=== PATIENT | male | born 1935 | race Caucasian/White ===

== ENCOUNTER → 2020-11-11 12:57 | Outpatient (CLI) | payer MEDICARE, SELFPAY ==
[2020-11-11 13:28] LABS: Basophils % 0.4 % (0.1-2.0); Eosinophils # 0.2 K/mm3 (0.0-0.4); Eosinophils % 2.7 % (0.1-12.0); Hematocrit 41.4 % (42.0-52.0); Hemoglobin 14.2 g/dL (14.1-18.0); Lymphocytes # 1.8 K/mm3 (0.7-4.5); Lymphocytes % 27.6 % (10-50); Mean Corpuscular HGB Conc 34.2 g/dL (31.8-35.4); Mean Corpuscular Hemoglobin 33.3 pg (27.0-31.2); Mean Corpuscular Volume 97.3 fl (80-94); Mean Platelet Volume 8.9 fl (7.4-10.4); Monocytes # 0.3 K/mm3 (0.1-1.0); Monocytes % 4.8 % (1.7-9.3); Neutrophils # 4.2 K/mm3 (1.8-7.8); Neutrophils % 64.5 % (37.0-80.0); Platelet Count 224 K/mm3 (142-424); Red Blood Count 4.26 M/mm3 (4.60-6.20); Red Cell Distribution Width 13.1 % (11.5-17.5); White Blood Count 6.6 K/mm3 (4.8-10.8)
[2020-11-11 14:11] LABS: Chloride 103 mmol/L (98-107)
[2020-11-11 14:12] LABS: Potassium 4.9 mmoL/L (3.5-5.1); Sodium 140 mmol/L (136-145)
[2020-11-11 14:14] LABS: Alanine Aminotransferase 21 U/L (12-78); Anion Gap 14.9 mEq/L (5-15); Aspartate Amino Transferase 22 U/L (17-59); Blood Urea Nitrogen 28 mg/dl (9-20); Carbon Dioxide 27 mmol/L (22.0-30.0); Estimated Glomerular Filt Rate 39 ml/min (>60); GFR (African American) 47 ML/MIN (>60)
[2020-11-11 14:15] LABS: Albumin/Globulin Ratio 1.6 (1.1-1.8); Alkaline Phosphatase 83 U/L (38-126); Bilirubin,Total 0.4 mg/dl (0.2-1.3); Calcium 9.4 mg/dl (8.4-10.2); Chol/HDL Ratio 5.9 (1-3.5); Cholesterol 196 mg/dl (140-200); Globulin 2.5 g/dL (1.3-3.2); Glucose 108 mg/dl (74-100); HDL Cholesterol 33 mg/dl (40-60); Total Protein,Serum 6.5 g/dl (6.3-8.2); Triglycerides 209 mg/dl (30-150); VLDL Cholesterol 42 mg/dL (0-40)
[2020-11-11 14:27] LABS: Direct LDL Cholesterol 128.63 mg/dL (100-129)
[2020-11-11 14:30] LABS: Free T4 (Free Thyroxine) 1.12 ng/dl (0.78-2.19)
[2020-11-11 14:44] LABS: Thyroid Stimulating Hormone 0.61 uIU/mL (0.465-4.68)
== END ==
PROVIDERS: Visit Provider Emergency Medicine
DX: R53.83 Other fatigue (principal); K59.00 Constipation, unspecified; E03.9 Hypothyroidism, unspecified
CPT/HCPCS: 36415; 80053; 80061; 84439; 84443; 85025

== ENCOUNTER → 2021-01-27 15:35 | Outpatient (CLI) | payer MEDICARE, SELFPAY ==
[2021-01-27 17:07] LABS: Chloride 101 mmol/L (98-107); Sodium 139 mmol/L (136-145)
[2021-01-27 17:08] LABS: Potassium 4.6 mmoL/L (3.5-5.1)
[2021-01-27 17:10] LABS: Blood Urea Nitrogen 30 mg/dl (9-20); Estimated Glomerular Filt Rate 41 ml/min (>60); GFR (African American) 50 ML/MIN (>60)
[2021-01-27 17:11] LABS: Anion Gap 15.6 mEq/L (5-15); Calcium 9.6 mg/dl (8.4-10.2); Carbon Dioxide 27 mmol/L (22.0-30.0); Glucose 90 mg/dl (74-100)
== END ==
PROVIDERS: Visit Provider Emergency Medicine
DX: R53.83 Other fatigue (principal); I10 Essential (primary) hypertension
CPT/HCPCS: 36415; 80048

== ENCOUNTER → 2021-12-28 09:41 | Outpatient (CLI) | payer MEDICARE, SELFPAY ==
--- NOTE | 2021-12-28 09:47 | XR_ITS ---
FINAL REPORT CLINICAL HISTORY: shoulder pain FINDINGS: LEFT SHOULDER 3 views of the left shoulder were obtained. There is no acute fracture or dislocation. There are minimal hypertrophic changes in the acromioclavicular joint. There is no soft tissue abnormality. IMPRESSION: Minimal hypertrophic changes in the acromioclavicular joint. Reviewed, Interpreted and Dictated by Tobin Borges MD Transcribed by Liz Banegas Authenticated and [facility]
--- NOTE | 2021-12-28 09:47 | XR_ITS ---
FINAL REPORT CLINICAL HISTORY: shoulder pain FINDINGS: RIGHT SHOULDER 3 views of the right shoulder were obtained. There is no acute fracture or dislocation. There are moderate degenerative changes of the acromioclavicular and glenohumeral joints. There is no soft tissue abnormality. There are mild chronic changes in the periphery of both lungs. IMPRESSION: Moderate degenerative changes of the acromioclavicular and glenohumeral joints consistent with osteoarthritis. Reviewed, Interpreted and Dictated by Tobin Borges MD Transcribed by Liz Banegas Authenticated and [facility]
== END ==
PROVIDERS: PCP Emergency Medicine; Visit Provider Orthopaedic Surgery
DX: M25.512 Pain in left shoulder (principal); M25.511 Pain in right shoulder
CPT/HCPCS: 73030

== ENCOUNTER → 2022-06-13 11:40 | Outpatient (CLI) | payer MEDICARE, SELFPAY ==
--- NOTE | 2022-06-13 11:49 | XR_ITS ---
FINAL REPORT CLINICAL HISTORY: right shoulder pain COMPARISON: 12/28/2021 FINDINGS: Right shoulder Three views were obtained. There is no acute fracture or dislocation. There are mild hypertrophic changes of the AC and glenohumeral joints. No soft tissue abnormality is identified. IMPRESSION: Mild degenerative changes. Reviewed, Interpreted and Dictated by Tobin Borges MD Transcribed by Elisha Dominguez Authenticated and [facility]
== END ==
PROVIDERS: Visit Provider Orthopaedic Surgery
DX: M19.211 Secondary osteoarthritis, right shoulder (principal); M25.511 Pain in right shoulder
CPT/HCPCS: 73030

== ENCOUNTER → 2022-11-06 23:22 | Outpatient (CLI) | payer MEDICARE, SELFPAY | PROVIDERS: PCP Emergency Medicine; Visit Provider Internal Medicine | DX: R06.02 Shortness of breath (principal) | CPT/HCPCS: 87635 ==

== ENCOUNTER → 2022-11-07 11:19 | Outpatient (CLI) | payer MEDICARE, SELFPAY ==
--- NOTE | 2022-11-07 11:25 | CA_ITS ---
APPROVED REPORT EXAM: Comprehensive 2D, Doppler, and color-flow Echocardiogram Adjunct Teacher: Linda Ellis RT(R) Ht: 6 ft 0 in Wt: 218lbs BSA: 2.21 BP: 140/82 mmHg Indications: A-FIB,SOA,ABN EKG,CP,EX SMOKER,OBESITY,PALPS Echo Enhancing Agent Indication: Endocardial border delineation Agent(s) / Amount(s) Used: Definity 2 cc 2D Dimensions IVSd 1.28 cm M: 0.6-1.2 LA Volume 66.20 mL PWd 0.79 cm M: 0.6 - 1.2 LA Volume Index 29.95 mL/m2 (M/F) 16-34 LVDd 5.54 cm M: 4.2 - 5.9 LVOT 2.20 cm (M/F) 1.5-2.5 M-Mode Dimensions RVDd 2.54 cm (0.9-2.6) LA Diam 4.35 cm (1.9-4.0) LVDd 6.02 cm (3.5-5.7) Ao Diam 2.73 cm (2.0-3.7) LVDs 5.21 cm (3.5-5.7) IVSd 1.06 cm (0.6-1.1) PWd 0.81 cm (0.6-1.1) EF (Teich) 28.30% FS 13.50% EDV (Teich) 181.40 mL ESV (Teich) 130.10 mL LV Diastology E Decel Time 150.00 (160-240 msec) E/A Ratio 1.7 MED E' 3.80 (< 7 cm/sec) E'/MED E' Ratio 27.13 (>14) LAT E' 4.50 (<10 cm/sec) E/LAT E' Ratio 22.91 (>14) Mitral Valve MV E Max Aiden. 103.00 (40-130 cm/s) MV A Velocity 60.00 (40-130 cm/s) E/A Ratio 1.72 MV Decel. Time 150.00 (160-240 ms) MV PHT 44.00 ms Tricuspid Valve TR P. Velocity 314.00 cm/s RAP Estimate 10.00 mmHg RVSP 49.30 mmHg Left Ventricle Left ventricle is mildly dilated (LVEDVi=77 ml/m2). There is severe reduction in global and LV systolic function. There is normal left ventricular wall thickness. Severe global hypokinesis is present. There is near akinesis of the lateral, anterior, anterolateral, and inferolateral LV barkley. There is grade 2 diastolic dysfunction present. No left ventricle thrombus noted on this study. LVEF is 25-30%. Right Ventricle Right ventricle is mild to moderately dilated. The right ventricular systolic function is mildly reduced. Atria The left atrium size is normal. Aortic Valve The aortic valve is mildly thickened. There is no aortic valvular stenosis. Trace aortic regurgitation. Mitral Valve The mitral valve is mildly thickened. No evidence of mitral valve stenosis. Mild mitral regurgitation. Tricuspid Valve The tricuspid valve leaflets are thin and pliable. Mild tricuspid regurgitation. RVSP is 30 mmHg + RA pressure. Pulmonic Valve The pulmonary valve is normal in structure. Mild pulmonic regurgitation. Great Vessels The aortic root is normal in size. The ascending aorta is normal in size. The IVC is not well visualized. Pericardium There is no pericardial effusion. Other Information Study Quality: Fair Conclusion Mildly dilated LV with severe reduction in global LV systolic function (LVEF 25-30%) Anterior, lateral, anterolateral, and inferior lateral LV wall akinesis is present. Grade 2 diastolic dysfunction. Mild to moderate RV dilatation with mild reduction in RV systolic function. No significant valvular stenosis or regurgitation. Electronically signed by : Marina Cid MD 11/07/2022 18:24:11
[2022-11-07 12:40] LABS: Basophils % 0.2 % (0.1-2.0); Eosinophils # 0.2 K/mm3 (0.0-0.4); Eosinophils % 3.8 % (0.1-12.0); Hematocrit 39.5 % (42.0-52.0); Hemoglobin 12.7 g/dL (14.1-18.0); Lymphocytes # 1.1 K/mm3 (0.7-4.5); Lymphocytes % 21.5 % (10-50); Mean Corpuscular HGB Conc 32.3 g/dL (31.8-35.4); Mean Corpuscular Hemoglobin 31.7 pg (27.0-31.2); Mean Corpuscular Volume 98.4 fl (80-94); Mean Platelet Volume 7.9 fl (7.4-10.4); Monocytes # 0.2 K/mm3 (0.1-1.0); Monocytes % 4.1 % (1.7-9.3); Neutrophils # 3.7 K/mm3 (1.8-7.8); Neutrophils % 70.4 % (37.0-80.0); Platelet Count 179 K/mm3 (142-424); Red Blood Count 4.02 M/mm3 (4.60-6.20); Red Cell Distribution Width 13.7 % (11.5-17.5); White Blood Count 5.3 K/mm3 (4.8-10.8)
[2022-11-07 13:20] LABS: Alanine Aminotransferase 22 U/L (12-78); Albumin Level 3.9 g/dl (3.5-5.0); Alkaline Phosphatase 57 U/L (38-126); Anion Gap 14.2 mEq/L (5-15); Aspartate Amino Transferase 26 U/L (17-59); Bilirubin,Direct 0.3 mg/dl (0.0-0.4); Bilirubin,Indirect 0.7 mg/dL (0.0-0.9); Bilirubin,Unconjugated 0.8 mg/dL (0.0-1.1); Blood Urea Nitrogen 17 mg/dl (9-20); Carbon Dioxide 22 mmol/L (22.0-30.0); Chloride 108 mmol/L (98-107); Chol/HDL Ratio 5.1 (1-3.5); Cholesterol 163 mg/dl (140-200); Estimated Glomerular Filt Rate 48 ml/min (>60); GFR (African American) 58 ML/MIN (>60); Glucose 110 mg/dl (74-100); HDL Cholesterol 32 mg/dl (40-60); Magnesium 1.2 mg/dl (1.6-2.3); Potassium 4.2 mmoL/L (3.5-5.1); Sodium 140 mmol/L (136-145); Total Protein,Serum 6.3 g/dl (6.3-8.2); Triglycerides 93 mg/dl (30-150); VLDL Cholesterol 19 mg/dL (0-40)
[2022-11-07 13:32] LABS: Troponin I 0.06 ng/ml (0.00-0.034)
[2022-11-07 13:36] LABS: Free T4 (Free Thyroxine) 1.43 ng/dl (0.78-2.19)
[2022-11-07 13:50] LABS: Thyroid Stimulating Hormone 0.76 uIU/mL (0.465-4.68)
== END ==
PROVIDERS: PCP Emergency Medicine; Visit Provider Physician Assistant
DX: R07.9 Chest pain, unspecified (principal); E66.9 Obesity, unspecified; I73.9 Peripheral vascular disease, unspecified; R00.2 Palpitations; R06.00 Dyspnea, unspecified; R94.31 Abnormal electrocardiogram [ECG] [EKG]
CPT/HCPCS: 36415; 80048; 80061; 80076; 83735; 84439; 84443; 84484; 85025; 93306; Q9957

== ENCOUNTER 2022-11-07 13:31 | Inpatient (IN) | payer MEDICARE, SELFPAY ==
[2022-11-07 13:39] VITALS: BP 134/92; PULSE 78; RESP 16; TEMP 36.9; O2SAT 95; BMI 29.3
--- NOTE | 2022-11-07 13:51 | XR_ITS ---
FINAL REPORT CLINICAL HISTORY: Dyspnea COMPARISON: None FINDINGS: PA and lateral views of the chest are obtained. There is no prior exam for comparison. The cardiac and mediastinal silhouettes are within normal limits. There are increased interstitial markings with bilateral lower lobe atelectasis, and small bilateral pleural effusions. There is no pneumothorax or acute osseous abnormality. IMPRESSION: Increased interstitial markings with bilateral lower lobe atelectasis and small pleural effusions, favor mild pulmonary edema. Reviewed, Interpreted and Dictated by Bianca Sumner MD Transcribed by Joycelyn Spear Authenticated and [facility]
--- NOTE | 2022-11-07 14:02 | HMH.PHAINT1 ---
Pharmacy Intervention Comments: MEDICATION RECONCILIATION COMPLETED ON PATIENT USING EXTERNAL FILL HISTORY FROM PHARMACY. -RAMONITA STERLING, ELOYD
--- NOTE | 2022-11-07 14:02 | EXP.HP ---
History of Present Illness *Admission Date: 11/07/22 *Reason for visit:: Chief complaint: Dyspnea *History of present illness: This is an 87-year-old male who presented to his cardiology office this morning for evaluation of dyspnea that began on Saturday. His past medical history is significant for Hypertension, B12 deficiency and obstructive sleep apnea noncompliant with CPAP therapy. He reports on Saturday afternoon experiencing a sudden episode of dyspnea that resolved with rest and no associated retrosternal chest pain, palpitations, confusion, diaphoresis or nausea and vomiting. He attempted to go to sleep and identified orthopnea and tried to change positions to breathe better. His symptomatology eased up over a couple days and then returned prompting a call for a cardiology evaluation. 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 The patient was amendable. He is accompanied by his of 40 years that assists with the history. He denies a past history of coronary artery disease, previous left heart cath or hospital admissions. [facility] Medical History (Updated 11/07/22 @ 16:45 by Fuad Jean-Baptiste MD) BPH (benign prostatic hyperplasia) Heart failure with reduced ejection fraction Hypertension PRISCILA (obstructive sleep apnea) Osteoarthritis Vitamin B12 deficiency Surgical History (Updated 11/07/22 @ 16:45 by Fuad Jean-Baptiste MD) Normal colonoscopy Social History Smoking Status: Former smoker alcohol intake: never substance use type: denies use current occupational status: employed Travel in the last 8 weeks: None Review of Systems Review of Systems Review of systems:: pertinent systems reviewed and negative unless documented below Constitutional Constitutional: Denies fever(s), Denies frequent falls and Denies headache(s) ENT Ears, Nose, Mouth, and Throat: Denies headache(s) *Cardiovascular Cardiovascular: Denies chest pain, Denies chest pain at rest, Reports dyspnea, Reports dyspnea on exertion and Denies edema *Respiratory Respiratory: Denies cough, Reports dyspnea and Reports dyspnea on exertion *Gastrointestinal Gastrointestinal: Denies loose stools, Denies nausea and Denies vomiting *Neurologic Neurologic: Denies frequent falls and Denies headache(s) Meds Home Medications and Allergies Home Medications Medication Instructions Recorded Confirmed Type cyanocobalamin (vitamin B-12) 1,000 mcg IM WEEKLY Supplement 11/07/22 11/07/22 History 1,000 mcg/mL injection solution lisinopril 5 mg tablet 5 mg PO DAILY High Blood Pressure 11/07/22 11/07/22 History loratadine 10 mg tablet (Allergy 10 mg PO DAILY Allergy Symptoms 11/07/22 11/07/22 History Relief (loratadine)) metoprolol succinate 25 mg 12.5 mg PO DAILY High Blood 11/07/22 11/07/22 History tablet,extended release 24 hr Pressure omeprazole 20 mg capsule,delayed 20 mg PO DAILY Acid Reflux 11/07/22 11/07/22 History release tamsulosin 0.4 mg capsule 0.4 mg PO HS Prostate 11/07/22 11/07/22 History New Prescriptions to Start Prescriptions: Allergies Allergy/AdvReac Type Severity Reaction Status Date / Time Penicillins Allergy Severe stops Verified 11/07/22 10:45 breathing statins AdvReac Mild Nausea Uncoded 11/07/22 10:45 Exam Data for Last 24 hours Vital signs and Labs for Last 24 Hours: Temp Pulse Resp BP Pulse Ox O2 Del Method 98.5 F 78 16 134/92 H 95 Room Air 11/07/22 13:39 11/07/22 13:39 11/07/22 13:39 11/07/22 13:39 11/07/22 13:39 11/07/22 13:39 I & O for Last 24 hours: Intake & Output 11/04/22 11/05/22 11/06/22 11/07/22 23:59 23:59 23:59 23:59 Weight 98.174 kg Constitutional Constitutional: no acute distress, obese and cooperative *Routine HEENT Exam Head: Present normocephalic Eye: Present EOMI and PERRL ENT: Present mucous membranes moist *Ro
[2022-11-07 15:05] LABS: Basophils % 0.1 % (0.1-2.0); Eosinophils # 0.1 K/mm3 (0.0-0.4); Eosinophils % 2.3 % (0.1-12.0); Hematocrit 40.5 % (42.0-52.0); Hemoglobin 12.9 g/dL (14.1-18.0); Lymphocytes # 1.3 K/mm3 (0.7-4.5); Lymphocytes % 21.8 % (10-50); Mean Corpuscular HGB Conc 31.9 g/dL (31.8-35.4); Mean Corpuscular Hemoglobin 31.4 pg (27.0-31.2); Mean Corpuscular Volume 98.3 fl (80-94); Mean Platelet Volume 9.5 fl (7.4-10.4); Monocytes # 0.3 K/mm3 (0.1-1.0); Monocytes % 4.5 % (1.7-9.3); Neutrophils # 4.3 K/mm3 (1.8-7.8); Neutrophils % 71.3 % (37.0-80.0); Platelet Count 198 K/mm3 (142-424); Red Blood Count 4.11 M/mm3 (4.60-6.20); Red Cell Distribution Width 13.8 % (11.5-17.5)
--- NOTE | 2022-11-07 15:07 | ECG_ITS ---
APPROVED REPORT Exam: Resting ECG HR:78 bpm ECG Measurements Heart Rate 78 AXES OK 200 P 55 QRSd 146 QRS -49 QT 459 T -1 QTc 492 Conclusion SINUS RHYTHM WITH FREQUENT VENTRICULAR PREMATURE COMPLEXES RIGHT BUNDLE BRANCH BLOCK [120+ ms QRS DURATION, UPRIGHT V1, 40+ ms S IN I/aVL/V4/V5/V6] LEFT ANTERIOR FASCICULAR BLOCK [QRS AXIS <= -45, QR IN I, RS IN II] ABNORMAL ECG UNCONFIRMED REPORT Electronically signed by : Rudy Sanchez MD 11/08/2022 17:19:28
[2022-11-07 15:08] VITALS: BP 125/84; PULSE 82; RESP 16; TEMP 36.5; O2SAT 97
[2022-11-07 15:10] LABS: Chloride 107 mmol/L (98-107); Potassium 4.3 mmoL/L (3.5-5.1); Sodium 142 mmol/L (136-145)
[2022-11-07 15:13] LABS: Alanine Aminotransferase 27 U/L (12-78); Albumin Level 3.9 g/dl (3.5-5.0); Albumin/Globulin Ratio 1.4 (1.1-1.8); Alkaline Phosphatase 53 U/L (38-126); Anion Gap 14.3 mEq/L (5-15); Aspartate Amino Transferase 35 U/L (17-59); Bilirubin,Total 1.3 mg/dl (0.2-1.3); Blood Urea Nitrogen 17 mg/dl (9-20); Calcium 8.9 mg/dl (8.4-10.2); Carbon Dioxide 25 mmol/L (22.0-30.0); Creatinine Clearance Estimated 54 mL/min (50-200); Estimated Glomerular Filt Rate 48 ml/min (>60); GFR (African American) 58 ML/MIN (>60); Globulin 2.8 g/dL (1.3-3.2); Glucose 106 mg/dl (74-100); Total Protein,Serum 6.7 g/dl (6.3-8.2)
[2022-11-07 15:22] LABS: NT Pro Brain Natriuretic Pep. 5950 pg/mL (0-450)
[2022-11-07 15:44] LABS: INR 1.08 (0.9-1.1); Prothrombin Time 11.6 seconds (10.1-12.5)
[2022-11-07 16:00] VITALS: PULSE 80
[2022-11-07 16:17] LABS: POC Glucose,Bedside 100 (70-110)
--- NOTE | 2022-11-07 17:29 | PC.NURSE ---
Pt A/O x4, On RA. Pt denies chest pain and has no complaints thus far. Pt FSBS remains within normal and range. Pt denies needs at this time.
--- NOTE | 2022-11-07 19:30 | PC.NURSE ---
Visit made to room to introduce self. While in room patient complained of slight shortness of air. Applied 2LNC. Patient aware that if symptoms worsen to use call light for assistance. Call light within reach.
[2022-11-07 20:00] VITALS: BP 124/70; PULSE 77; PULSE 80; RESP 18; RESP 20; TEMP 36.6; O2SAT 96
[2022-11-07 21:40] LABS: POC Glucose,Bedside 116 (70-110)
[2022-11-08] VITALS (24 sets, daily range): BP systolic 75–146; BP diastolic 44–92; PULSE 67–92; RESP 15–22; TEMP 36.4–36.7; O2SAT 91–99; BMI 28.8
--- NOTE | 2022-11-08 00:46 | ECG_ITS ---
APPROVED REPORT Exam: Resting ECG HR:82 bpm ECG Measurements Heart Rate 82 AXES FL 194 P 75 QRSd 139 QRS 100 QT 411 T 29 QTc 450 Conclusion SINUS RHYTHM INDETERMINATE AXIS RIGHT BUNDLE BRANCH BLOCK [120+ ms QRS DURATION, UPRIGHT V1, 40+ ms S IN I/aVL/V4/V5/V6] ABNORMAL ECG UNCONFIRMED REPORT Electronically signed by : Rudy Sanchez MD 11/08/2022 17:18:14
--- NOTE | 2022-11-08 00:58 | XR_ITS ---
PROCEDURE INFORMATION: Exam: XR Chest Exam date and time: 11/08/2022 12:54 AM Age: 87 years old Clinical indication: Shortness of breath; Additional info: SOB TECHNIQUE: Imaging protocol: Radiologic exam of the chest. Views: 1 view. COMPARISON: CR XR CHEST 2V 11/07/2022 2:20 PM FINDINGS: Lungs: Bibasilar consolidative opacities reflecting either edema or infection. Pleural spaces: Trace to small right pleural effusion suspected . Heart/Mediastinum: Stable cardiac and mediastinal contours. Vasculature: There are calcifications of the aortic arch. Bones/joints: Unremarkable for patient age. IMPRESSION: 1. Bibasilar consolidative opacities reflecting either edema or infection. 2. Trace to small right pleural effusion suspected .
--- NOTE | 2022-11-08 01:00 | PC.NURSE ---
Patient called out stating that he was having trouble breathing. Upon assessment patient is tachypenic RR >30, using accessory muscles, and requesting to sit on side of the bed. Patient SOA complaining of not being able to catch his breath. Patient is diaphoretic, and complaining of back pain between his shoulder blades. Patient VS obtained. O2 83%, heart rate 95, BP 165/112. Patient placed on NRB. [place], HEALTHCARE EDUCATOR notified along with CN. EKG obtained. No significant change from prior EKG. Patient with audible expiratory wheeze, along with wheeze noted when lungs auscultated. HEALTHCARE EDUCATOR at bedside, and chest xray obtained. New orders placed for Lasix, and nitro. Patient given dose of IV lasix, see MAR, along with 2 doses of nitro. Pain still present after Nitro administration. Respiratory notified for administration of breathing treatment per HEALTHCARE EDUCATOR. Approx 0130 patient work of breathing evens out. No accessory use noted. VS. 142/80, RR 20, O2 97% 2LNC, HR 84. Patient states that medial back pain between shoulder blades has dissipated, and that its not as hard to breathe anymore. Patient requests urinal, and produces 600ml. Provided patient comfort in bed, call light within reach, and informed to use call light immediately if having trouble breathing. RASTA.
--- NOTE | 2022-11-08 06:00 | PC.NURSE ---
Patient with complaints of worsening SOA. He states it feels like what happened a couple of hours ago is going to happen again. Patient repositioned into high fowlers, with complaints of back pain and sudden SOA. Phone call made to hospitalist with new orders. This RN administered 40mg Lasix IV so dyspnea. Patient urine output >1500ml with 0ml intake due to NPO pre procedure. Patient resting comfortably at present, slight dyspnea present but work of breathing not as prevalent. Patient remains in high folwers position, with call light within reach.
[2022-11-08 06:32] LABS: POC Glucose,Bedside 110 (70-110)
[2022-11-08 07:01] LABS: Basophils % 0.2 % (0.1-2.0); Eosinophils # 0.3 K/mm3 (0.0-0.4); Eosinophils % 3.1 % (0.1-12.0); Hematocrit 42.4 % (42.0-52.0); Lymphocytes # 1.5 K/mm3 (0.7-4.5); Lymphocytes % 18.2 % (10-50); Mean Corpuscular HGB Conc 32.9 g/dL (31.8-35.4); Mean Corpuscular Hemoglobin 31.5 pg (27.0-31.2); Mean Corpuscular Volume 95.7 fl (80-94); Mean Platelet Volume 8.8 fl (7.4-10.4); Monocytes # 0.3 K/mm3 (0.1-1.0); Monocytes % 3.5 % (1.7-9.3); Neutrophils # 6.2 K/mm3 (1.8-7.8); Platelet Count 209 K/mm3 (142-424); Red Blood Count 4.43 M/mm3 (4.60-6.20); Red Cell Distribution Width 13.6 % (11.5-17.5); White Blood Count 8.2 K/mm3 (4.8-10.8)
[2022-11-08 07:13] LABS: INR 1.06 (0.9-1.1); Prothrombin Time 11.4 seconds (10.1-12.5)
[2022-11-08 07:14] LABS: Alanine Aminotransferase 28 U/L (12-78); Albumin Level 4.4 g/dl (3.5-5.0); Albumin/Globulin Ratio 1.5 (1.1-1.8); Alkaline Phosphatase 69 U/L (38-126); Anion Gap 15.7 mEq/L (5-15); Aspartate Amino Transferase 37 U/L (17-59); Bilirubin,Total 1.5 mg/dl (0.2-1.3); Blood Urea Nitrogen 20 mg/dl (9-20); Calcium 9.5 mg/dl (8.4-10.2); Carbon Dioxide 24 mmol/L (22.0-30.0); Chloride 106 mmol/L (98-107); Chol/HDL Ratio 4.9 (1-3.5); Cholesterol 181 mg/dl (140-200); Creatinine Clearance Estimated 43 mL/min (50-200); Estimated Glomerular Filt Rate 38 ml/min (>60); GFR (African American) 47 ML/MIN (>60); Globulin 2.9 g/dL (1.3-3.2); Glucose 119 mg/dl (74-100); HDL Cholesterol 37 mg/dl (40-60); Magnesium 1.3 mg/dl (1.6-2.3); Potassium 3.7 mmoL/L (3.5-5.1); Sodium 142 mmol/L (136-145); Total Protein,Serum 7.3 g/dl (6.3-8.2); Triglycerides 120 mg/dl (30-150); VLDL Cholesterol 24 mg/dL (0-40)
[2022-11-08 07:22] LABS: NT Pro Brain Natriuretic Pep. 8000 pg/mL (0-450)
[2022-11-08 07:24] LABS: Direct LDL Cholesterol 114.44 mg/dL (100-129)
[2022-11-08 08:18] LABS: Hemoglobin A1C 5.3 % (4.0-6.0)
--- NOTE | 2022-11-08 10:41 | IR_ITS ---
APPROVED REPORT Patient Location: Inpatient PROCEDURES Right heart catheterization Left heart catheterization Left ventriculogram Selective coronary angiogram INDICATION New onset cardiomyopathy ejection fraction 25%, Pulmonary hypertension Informed consent was obtained prior to the procedure. COMPLICATIONS None Estimated Blood Loss: Less than 10 ml TECHNIQUE One percent lidocaine used to anesthetize the right anterior aspect of the wrist. The right radial artery was accessed via the Seldinger technique. A 6 Mexican sheath was placed in the right radial artery. 2.5 mg of Verapamil, 800 mcg of nitroglycerin, 1mg Lidocaine and 5000 U Heparin were given through the arterial sheath. The papa catheter was also used to perform left heart catheterization, left ventriculogram and selective coronary angiogram. Immediately following angiography patient became profoundly hypotensive and bradycardic with heart rates in the 20s and significant pauses longest 8 seconds. 1 mg of epinephrine was administered into the right internal jugular venous sheath which resolved the bradycardia and hypotension. At the end of the procedure the sheath was removed good hemostasis was achieved using Traclet band, patient was transferred to the postop holding area in stable condition. One percent lidocaine was used to anesthetize the right anterior aspect of the neck. A rn mds coordinator needle was used to identify the right internal jugular vein. Following this a larger cannulation needle was used to cannulate the right internal jugular vein and a wire was passed into the vein. Prior to the 7 Mexican sheath being inserted the wire was confirmed under fluoroscopic guidance to be in the inferior vena cava. A 7 Mexican sheath was introduced and a [place]-Kush catheter was floated using hemodynamic waveforms in the pulmonary artery, right ventricle , and right atrium. Saturations were obtained in the pulmonary artery and the right atrium. At the end of the procedure the patient was transferred to the postop holding area in stable condition for sheath removal. ANGIOGRAPHIC RESULTS The left main artery Normal The left anterior descending artery Proximally normal with mid vessel 10% luminal irregularities The circumflex artery Large dominant normal The right coronary artery Vestigial normal The ZIMMER ventriculogram reveals Severely dilated ejection fraction 20 to 25% The left ventricular end-diastolic pressure 35 mmHg Right atrial pressure 12 mmHg Pulmonary pressure 70/35 mmHg Pulmonary occlusion pressure 30 mmHg Right atrial saturation 68% Pulmonary saturation 67% Aortic saturation 91% Hemoglobin 14 Cardiac output 6.2 via Evens Cardiac index 2.8 IMPRESSION Widely patent coronary arteries with mild nonflow limiting coronary artery disease Dilated ventricle with severely reduced ejection fraction Severe pulmonary hypertension Elevated left-sided filling pressures PLAN 1. Diuresis 2. Treatment of nonischemic cardiomyopathy 3. LifeVest prior to discharge home Electronically signed by : Zana Raya MD 11/08/2022 16:04:54
--- NOTE | 2022-11-08 11:27 | EXP.CARD.CON ---
History of Present Illness History of Present Illness Consult date: 11/08/22 Requesting physician: Fuad Jean-Baptiste Consult reason: shortness of breath Chief complaint: SOA, fatigue History of present illness: This is an 87-year-old gentleman who was admitted to the hospital with shortness of breath that began on Saturday. The patient was evaluated yesterday in the cardiology clinic and due to his significant shortness of breath and new onset cardiomyopathy it was recommended the patient be admitted to the hospital. He does have known hypertension and obstructive sleep apnea. The patient states that he felt fine on Saturday afternoon and then had sudden onset of shortness of breath while he was asleep Saturday night into Saturday morning that woke him from his sleep. He states that this happened again the next night. The following morning he felt okay and then that afternoon he began to get profoundly more short of breath. He went to see his primary care provider and he was referred to cardiology clinic. Echocardiogram showed new onset cardiomyopathy with an ejection fraction of 25 to 30%. There is also anterior, lateral, anterior lateral and inferior wall akinesis. He denies any chest pain or pressure. He just states that he has been feeling extremely fatigued and having no energy. He states that this is very unlike him. He still works every day so having this lack of energy and shortness of breath this is very unusual for him. He denies a history of coronary disease or VT. He denies any lower extremity edema. He denies any fever, chills, nausea, vomiting, diarrhea. He does have some orthopnea and awaking suddenly in the middle the night with his shortness of breath. [facility] Disclaimer: The information contained in this section may have been updated after the patient was seen, as this information can be updated by other users. Medical History (Updated 11/08/22 @ 11:34 by Sarah Gibson APRN) Acute HFrEF (heart failure with reduced ejection fraction) BPH (benign prostatic hyperplasia) Cardiomyopathy Heart failure with reduced ejection fraction Hyperlipidemia Hypertension PRISCILA (obstructive sleep apnea) Osteoarthritis Regional wall motion abnormality of heart Shortness of Breath Vitamin B12 deficiency Surgical History (Updated 11/07/22 @ 16:45 by Fuad Jean-Baptiste MD) Normal colonoscopy Social History Smoking Status: Former smoker alcohol intake: never substance use type: denies use current occupational status: employed Travel in the last 8 weeks: None Review of Systems Review of Systems Review of systems:: pertinent systems reviewed and negative unless documented below Constitutional Constitutional: Reports system reviewed and no additional complaints, except as documented, Reports fatigue, Denies frequent falls, Denies headache(s), Reports lethargy and Reports weakness Eyes Eyes: Reports system reviewed and no additional complaints, except as documented ENT Ears, Nose, Mouth, and Throat: Reports system reviewed and no additional complaints, except as documented and Denies headache(s) *Cardiovascular Cardiovascular: Reports system reviewed and no additional complaints, except as documented, Denies chest pain, Reports dyspnea, Reports dyspnea on exertion, Reports orthopnea and Reports paroxysmal nocturnal dyspnea *Respiratory Respiratory: Reports system reviewed and no additional complaints, except as documented, Reports dyspnea and Reports dyspnea on exertion *Gastrointestinal Gastrointestinal: Reports system reviewed and no additional complaints, except as documented *Genitourinary Genitourinary: Reports system reviewed and no additional complaints, except as documented *Musculoskeletal Musculoskeletal: Reports system reviewed and no additional complaints, except as documented Integumentary/Breasts Skin/Breast: Reports system reviewed and no additional complaints, except as document
[2022-11-08 11:29] LABS: POC Glucose,Bedside 108 (70-110)
--- NOTE | 2022-11-08 13:32 | EXP.PN ---
Subjective *Date: 11/08/22 *Time: 13:32 Interval history: Patient is seen and examined at bedside. I am accompanied by nursing staff. The patient reports a rough night. He describes ongoing dyspnea through the night. He declined NIPPV therapy. Nursing staff report that he remains afebrile with stable vital signs and saturating appropriately on 2 L. His morning labs identify stable CBC with normal electrolytes and a creatinine 1.7. His chest x-ray is consistent with edema. His BNP is 8000 and his magnesium is 1.3. Cardiology is due to see the patient. Exam Data for Last 24 hours Vital signs and Labs for Last 24 Hours: Temp Pulse Resp BP Pulse Ox O2 Del Method O2 Flow Rate 97.6 F 67 19 134/92 H 96 Nasal Cannula 2 11/08/22 12:00 11/08/22 12:00 11/08/22 12:00 11/08/22 12:00 11/08/22 12:00 11/08/22 12:57 11/08/22 12:57 Laboratory Results - last 24 hr 11/07/22 14:20: WBC 6.0, RBC 4.11 L, Hgb 12.9 L, Hct 40.5 L, MCV 98.3 H, MCH 31.4 H, MCHC 31.9, RDW 13.8, Plt Count 198, MPV 9.5, Neut % (Auto) 71.3, Lymph % (Auto) 21.8, [place] % (Auto) 4.5, Eos % (Auto) 2.3, Baso % (Auto) 0.1, Neut # (Auto) 4.3, Lymph # (Auto) 1.3, [place] # (Auto) 0.3, Eos # (Auto) 0.1, Baso # (Auto) 0.0, Sodium 142, Potassium 4.3, Chloride 107, Carbon Dioxide 25, Anion Gap 14.3, BUN 17, Creatinine 1.40 H, Estimated Creat Clear 54, Estimated GFR 48 L, Est GFR ( Amer) 58 L, Glucose 106 H, Calcium 8.9, Total Bilirubin 1.3, AST 35 D, ALT 27, Alkaline Phosphatase 53, NT-Pro-B Natriuret Pep 5950 H, Total Protein 6.7, Albumin 3.9, Globulin 2.8, Albumin/Globulin Ratio 1.4 11/07/22 15:27: PT 11.6, INR 1.08 11/07/22 16:00: POC Glucose 100 11/07/22 20:18: POC Glucose 116 H 11/08/22 06:04: POC Glucose 110 11/08/22 06:34: WBC 8.2 D, RBC 4.43 L, Hgb 14.0 L, Hct 42.4, MCV 95.7 H, MCH 31.5 H, MCHC 32.9, RDW 13.6, Plt Count 209, MPV 8.8, Neut % (Auto) 75.0, Lymph % (Auto) 18.2, [place] % (Auto) 3.5, Eos % (Auto) 3.1, Baso % (Auto) 0.2, Neut # (Auto) 6.2, Lymph # (Auto) 1.5, [place] # (Auto) 0.3, Eos # (Auto) 0.3, Baso # (Auto) 0.0, PT 11.4, INR 1.06, Sodium 142, Potassium 3.7, Chloride 106, Carbon Dioxide 24, Anion Gap 15.7 H, BUN 20, Creatinine 1.70 H D, Estimated Creat Clear 43, Estimated GFR 38 L, Est GFR ( Amer) 47 L, Glucose 119 H, Hemoglobin A1c 5.3, Calcium 9.5, Magnesium 1.3 L, Total Bilirubin 1.5 H, AST 37, ALT 28, Alkaline Phosphatase 69, NT-Pro-B Natriuret Pep 8000 H, Total Protein 7.3, Albumin 4.4 D, Globulin 2.9, Albumin/Globulin Ratio 1.5, Triglycerides 120, Cholesterol 181, LDL Cholesterol Direct 114.44, VLDL Cholesterol 24, HDL Cholesterol 37 L, Cholesterol/HDL Ratio 4.9 H 11/08/22 10:56: POC Glucose 108 I & O for Last 24 hours: Intake & Output 11/05/22 11/06/22 11/07/22 11/08/22 23:59 23:59 23:59 23:59 Intake Total 390 / 390 0 / 0 Output Total 0 / 0 2700 / 2700 Balance 390 / 390 -2700 / -2700 Weight 98.174 kg 96.524 kg Constitutional Constitutional: no acute distress, obese and cooperative *Routine HEENT Exam Head: Present normocephalic Eye: Present EOMI and PERRL *Routine Neck Exam Neck: Present full ROM and trachea midline; Absent JVD or lymphadenopathy *Routine Respiratory Exam Respiratory: Present rhonchi, normal respiratory effort and symmetric chest movement *Routine Cardiovascular Exam Cardiovascular: Present RRR, Normal S1 and Normal S2 *Routine Extremities Exam Extremities: Present full ROM, pulses intact and normal capillary refill; Absent edema *Routine Skin Exam Skin: Present warm; Absent rash *Routine Neurological Exam Neurological: Present alert, oriented X3, moving all extremities, vision grossly intact, hearing grossly intact and normal speech; Absent sensory deficit or motor deficit Routine Psychiatric Exam Psychiatric: Present normal affect, normal thought process, cooperative, good insight and good judgment Assessment and Plan *Assessment and plan (1) Acute HFrEF (heart failure with reduced ejection fractio
--- NOTE | 2022-11-08 15:08 | PC.NURSE ---
Pt to laborer tanbark at this time
[2022-11-08 16:19] LABS: CATHL Arterial O2 SAT 67.8 % (90-100); CATHL Venous O2 SAT 68.6 % (75-80)
[2022-11-08 17:24] LABS: POC Glucose,Bedside 99 (70-110)
--- NOTE | 2022-11-08 18:39 | PC.NURSE ---
Pt alert and oriented x4, Pt went for heart cath this shift, Pt seemed to tolerate well, Pt is now resting comfortable. Pt denies pain, and V/S remain stable.Pt O2 requirements began the shift with 2L and is now currently sating at 92 on 3L following heart cath. Pt radial cath site is clean dry and intact at this time. IJ cath site is also clean dry and intact. Pt advanced from NPO to a cardiac diet pt ate 100% at dinner and is tolerating it well thus far. Pt denies all other needs at this time.
--- NOTE | 2022-11-08 20:56 | PC.NURSE ---
notified primer inserting machine adjuster of bp 89/56. stated to hold the carvedilol and entresto. no other orders given
--- NOTE | 2022-11-08 21:30 | PC.NURSE ---
Spoke with Dorota regarding patients medications. Stated to give the entresto and hold the carvedilol. D/c brlilinta. Made aware of bp 89/56.
[2022-11-08 22:04] LABS: POC Glucose,Bedside 110 (70-110)
--- NOTE | 2022-11-08 23:30 | PC.NURSE ---
notified reji of blood pressure 80/51. no new orders were given. pt is asymptomatic and has no complaints at this time
[2022-11-09] VITALS (9 sets, daily range): BP systolic 101–126; BP diastolic 50–76; PULSE 68–100; RESP 16–19; TEMP 36.4–36.8; O2SAT 91–100; BMI 28.0
[2022-11-09 06:32] LABS: POC Glucose,Bedside 123 (70-110)
[2022-11-09 06:43] LABS: Basophils % 0.2 % (0.1-2.0); Eosinophils # 0.2 K/mm3 (0.0-0.4); Eosinophils % 2.2 % (0.1-12.0); Hematocrit 42.4 % (42.0-52.0); Hemoglobin 13.7 g/dL (14.1-18.0); Lymphocytes # 1.4 K/mm3 (0.7-4.5); Lymphocytes % 16.9 % (10-50); Mean Corpuscular HGB Conc 32.3 g/dL (31.8-35.4); Mean Corpuscular Hemoglobin 31.5 pg (27.0-31.2); Mean Corpuscular Volume 97.3 fl (80-94); Mean Platelet Volume 8.6 fl (7.4-10.4); Monocytes # 0.5 K/mm3 (0.1-1.0); Monocytes % 5.8 % (1.7-9.3); Neutrophils % 74.9 % (37.0-80.0); Platelet Count 209 K/mm3 (142-424); Red Blood Count 4.36 M/mm3 (4.60-6.20); Red Cell Distribution Width 13.6 % (11.5-17.5)
[2022-11-09 06:53] LABS: Anion Gap 15.6 mEq/L (5-15); Blood Urea Nitrogen 26 mg/dl (9-20); Carbon Dioxide 29 mmol/L (22.0-30.0); Chloride 100 mmol/L (98-107); Creatinine Clearance Estimated 34 mL/min (50-200); Estimated Glomerular Filt Rate 30 ml/min (>60); GFR (African American) 37 ML/MIN (>60); Glucose 112 mg/dl (74-100); Magnesium 1.6 mg/dl (1.6-2.3); Potassium 3.6 mmoL/L (3.5-5.1); Sodium 141 mmol/L (136-145)
[2022-11-09 07:03] LABS: NT Pro Brain Natriuretic Pep. 7610 pg/mL (0-450)
--- NOTE | 2022-11-09 10:39 | EXP.CARD.PN ---
Subjective Subjective Date: 11/09/22 Time: 09:00 Principal diagnosis: Acute HFrEF, pulmonary hypertension Interval history: The patient was admitted to the hospital with shortness of breath and new onset cardiomyopathy. The patient was found to have an acute exacerbation of HFrEF. He underwent left cardiac catheterization yesterday which showed mild nonocclusive coronary artery disease with severe pulmonary hypertension and a dilated ventricle with severely reduced ejection fraction and elevated left-sided filling pressures. The patient was treated with IV Lasix. He states he has had significant improvement in his shortness of breath since yesterday. He states it is like a light switch was flipped and his shortness of breath and fatigue has significantly improved. He is feeling much better. He denies any chest pain or pressure this morning. He states his shortness of breath is significantly improved. He denies any lower extremity edema. He denies any fever, chills, nausea, vomiting, diarrhea, PND or orthopnea. Exam Data for Last 24 hours Vital signs and Labs for Last 24 Hours: Temp Pulse Resp BP Pulse Ox O2 Del Method O2 Flow Rate 97.9 F 84 18 101/50 L 91 L Room Air 2 11/09/22 08:00 11/09/22 08:00 11/09/22 08:00 11/09/22 08:00 11/09/22 08:00 11/09/22 09:00 11/09/22 06:38 Laboratory Results - last 24 hr 11/08/22 10:56: POC Glucose 108 11/08/22 16:00: ABG O2 Sat (Measured) 67.8 L, POC VBG O2 Sat (Yissel) 68.6 L 11/08/22 17:12: POC Glucose 99 11/08/22 21:42: POC Glucose 110 11/09/22 05:49: WBC 8.0, RBC 4.36 L, Hgb 13.7 L, Hct 42.4, MCV 97.3 H, MCH 31.5 H, MCHC 32.3, RDW 13.6, Plt Count 209, MPV 8.6, Neut % (Auto) 74.9, Lymph % (Auto) 16.9, [place] % (Auto) 5.8, Eos % (Auto) 2.2, Baso % (Auto) 0.2, Neut # (Auto) 6.0, Lymph # (Auto) 1.4, [place] # (Auto) 0.5, Eos # (Auto) 0.2, Baso # (Auto) 0.0, Sodium 141, Potassium 3.6, Chloride 100, Carbon Dioxide 29, Anion Gap 15.6 H, BUN 26 H D, Creatinine 2.10 H D, Estimated Creat Clear 34, Estimated GFR 30 L, Est GFR ( Amer) 37 L D, Glucose 112 H, Calcium 9.0, Magnesium 1.6 D, NT-Pro-B Natriuret Pep 7610 H 11/09/22 06:26: POC Glucose 123 H I & O for Last 24 hours: Intake & Output 11/06/22 11/07/22 11/08/22 11/09/22 23:59 23:59 23:59 23:59 Intake Total 390 / 390 240 / 840 1680 / 1680 Output Total 0 / 0 3250 / 3850 800 / 800 Balance 390 / 390 -3010 / -3010 880 / 880 Weight 216 lb 7 oz 212 lb 12.8 oz 207 lb 5 oz Narrative: Left heart cath shows: Widely patent coronary arteries with mild nonflow limiting coronary artery disease Dilated ventricle with severely reduced ejection fraction Severe pulmonary hypertension Elevated left-sided filling pressures PLAN 1. Diuresis 2. Treatment of nonischemic cardiomyopathy 3. LifeVest prior to discharge home Constitutional Constitutional: no acute distress and average body habitus *Routine HEENT Exam Head: Present normocephalic and atraumatic ENT: Present mucous membranes moist *Routine Neck Exam Neck: Present supple, full ROM and normal carotid upstroke; Absent JVD, carotid bruit or lymphadenopathy *Routine Respiratory Exam Respiratory: Present wheezes, normal respiratory effort, able to speak in complete sentences and symmetric chest movement *Routine Cardiovascular Exam Cardiovascular: Present RRR, Normal S1, Normal S2 and murmur; Absent gallop *Routine Abdominal Exam Abdominal: Present soft and normoactive bowel sounds; Absent tenderness, distended or organomegaly *Routine Extremities Exam Extremities: Present full ROM, pulses intact and normal capillary refill; Absent cyanosis, clubbing or edema *Routine Skin Exam Skin: Present intact and warm; Absent erythema *Routine Neurological Exam Neurological: Present alert, oriented X3 and CN II-XII intact; Absent sensory deficit or motor deficit Routine Psychiatric Exam Psychiatric: Present normal affect Progress Note: A&P Assessment and plan (1) Shortness of Breath: Sta
--- NOTE | 2022-11-09 10:59 | HMH.PTEV ---
Physical Therapy Evaluation Rehab PT IP Evaluation Start: 11/09/22 07:04 Freq: ONCE Status: Active Protocol: Document 11/09/22 10:49 NELIDA (Rec: 11/09/22 10:59 NELIDA [id number]) Subjective/History History History 87 yowm adm to [facility] with dyspnea, found to have cardiomyopathy wit reduced EF. Hx of HTN, PRISCILA, HF. He reports he lives with his spoise and he is independent with all mobility without AD at [facility]. 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 Subjective Subjective Pt with no c/o at this time. New diagnosis of cancer in past 12 No months? Rehab PT IP Eval Objective Appearance Patient Behavior Appropriate Patient Orientation Person,Place,Time Difficulty following instructions none Speech Pattern Clear Ambulation Patient Able to Ambulate No Balance Ability to Arise Able, uses arms to help Sitting Balance Steady, safe Standing Balance Steady, wide stance Dynamic Sitting Balance Ability Good Dynamic Standing Balance Ability Good Transfers Bed Transfer Ability Independent Chair Transfer Ability Independent Sit to Stand Bed Transfer Ability Independent Sit to Stand Chair Transfer Ability Independent Rehab PT IP prob,goals,plan Problems Date of Evaluation: 11/09/22 Discharge Plan PT Discharge Plan Pt appears to be at baseline for all mobility at this time and is appropriate to return home once medically stable for d/c. Eval Complexity Eval Charge Codes 31811 - High Complexity PHYSICIAN CERTIFICATION: I certify the specified therapy services for Chase Carpenter are required, authorized, and reviewed every 30 days.
[2022-11-09 12:17] LABS: POC Glucose,Bedside 130 (70-110)
--- NOTE | 2022-11-09 12:55 | EXP.PN ---
Subjective *Date: 11/09/22 *Time: 12:55 Interval history: Patient is seen and examined at bedside. I am accompanied by nursing staff. The patient reports no acute events overnight. He reports his dyspnea has improved. He continues to decline NIPPV therapy. Nursing staff report that he remains afebrile with stable vital signs and saturating appropriately on 2 L of oxygen via nasal cannula. He underwent right and left cardiac catheterizations. His left heart cath identified no obstructive disease in his right heart cath identified pulmonary hypertension. Cardiology continues to follow and is recommending LifeVest on discharge. We are trending his electrolytes and creatinine and providing magnesium supplementation. Exam Data for Last 24 hours Vital signs and Labs for Last 24 Hours: Temp Pulse Resp BP Pulse Ox O2 Del Method O2 Flow Rate 97.5 F L 78 19 106/64 L 93 L Room Air 2 11/09/22 11:50 11/09/22 11:50 11/09/22 11:50 11/09/22 11:50 11/09/22 11:50 11/09/22 12:31 11/09/22 06:38 Laboratory Results - last 24 hr 11/08/22 16:00: ABG O2 Sat (Measured) 67.8 L, POC VBG O2 Sat (Yissel) 68.6 L 11/08/22 17:12: POC Glucose 99 11/08/22 21:42: POC Glucose 110 11/09/22 05:49: WBC 8.0, RBC 4.36 L, Hgb 13.7 L, Hct 42.4, MCV 97.3 H, MCH 31.5 H, MCHC 32.3, RDW 13.6, Plt Count 209, MPV 8.6, Neut % (Auto) 74.9, Lymph % (Auto) 16.9, [place] % (Auto) 5.8, Eos % (Auto) 2.2, Baso % (Auto) 0.2, Neut # (Auto) 6.0, Lymph # (Auto) 1.4, [place] # (Auto) 0.5, Eos # (Auto) 0.2, Baso # (Auto) 0.0, Sodium 141, Potassium 3.6, Chloride 100, Carbon Dioxide 29, Anion Gap 15.6 H, BUN 26 H D, Creatinine 2.10 H D, Estimated Creat Clear 34, Estimated GFR 30 L, Est GFR ( Amer) 37 L D, Glucose 112 H, Calcium 9.0, Magnesium 1.6 D, NT-Pro-B Natriuret Pep 7610 H 11/09/22 06:26: POC Glucose 123 H 11/09/22 12:10: POC Glucose 130 H I & O for Last 24 hours: Intake & Output 11/06/22 11/07/22 11/08/22 11/09/22 23:59 23:59 23:59 23:59 Intake Total 390 / 390 240 / 840 1680 / 1680 Output Total 0 / 0 3250 / 3850 800 / 800 Balance 390 / 390 -3010 / -3010 880 / 880 Weight 98.174 kg 96.524 kg 94.035 kg Constitutional Constitutional: no acute distress, obese and cooperative *Routine HEENT Exam Head: Present normocephalic Eye: Present EOMI and PERRL *Routine Neck Exam Neck: Present full ROM and trachea midline; Absent JVD or lymphadenopathy *Routine Respiratory Exam Respiratory: Present rhonchi, normal respiratory effort and symmetric chest movement *Routine Cardiovascular Exam Cardiovascular: Present RRR, Normal S1 and Normal S2 *Routine Extremities Exam Extremities: Present full ROM, pulses intact and normal capillary refill; Absent edema *Routine Skin Exam Skin: Present warm; Absent rash *Routine Neurological Exam Neurological: Present alert, oriented X3, moving all extremities, vision grossly intact, hearing grossly intact and normal speech; Absent sensory deficit or motor deficit Routine Psychiatric Exam Psychiatric: Present normal affect, normal thought process, cooperative, good insight and good judgment Assessment and Plan *Assessment and plan (1) Acute HFrEF (heart failure with reduced ejection fraction): Status: Acute Category: Medical Code(s): I50.21 - Acute systolic (congestive) heart failure (2) Hypertension: Status: Acute Qualifiers: Hypertension type: primary hypertension Qualified Code(s): I10 - Essential (primary) hypertension Category: Medical Code(s): I10 - Essential (primary) hypertension (3) Abnormal ECG: Status: Acute Category: Medical Code(s): R94.31 - Abnormal electrocardiogram [ECG] [EKG] (4) Obesity (BMI 30-39.9): Status: Acute Category: Medical Code(s): E66.9 - Obesity, unspecified (5) BPH (benign prostatic hyperplasia): Status: Acute Category: Medical Code(s): N40.0 - Benign prostatic hyperplasia without lower
--- NOTE | 2022-11-09 15:40 | PC.NURSE ---
NO ACUTE CHANGES SINCE PREVIOUS ASSESSMENT. TOLERATING ROOM AIR WELL AND AMBULATING IN ROOM WITHOUT DIFFICULTY. FITTED FOR LIFE VEST THIS SHIFT.
[2022-11-10] VITALS (8 sets, daily range): BP systolic 87–108; BP diastolic 48–63; PULSE 70–88; RESP 16–20; TEMP 36.4–37.1; O2SAT 90–96; BMI 28.0
--- NOTE | 2022-11-10 04:40 | PC.NURSE ---
HAS RESTED WELL THIS SHIFT. NO C/O PAIN OR DISCOMFORT. BPs RUN LOW. ASYMPTOMATIC. 02 SATS ON RM AIR 94-99% ON ROOM AIR. CATH SITES TO R RADIAL AND R JUGGULAR MIGUEL ÁNGEL, NO S/S OF INFECTION OR COMPLICATION. SINUS RHYTHM/BBB AND OCCASSIOAL PVCs NOTED ON TELE.
[2022-11-10 06:57] LABS: Magnesium 1.8 mg/dl (1.6-2.3)
[2022-11-10 07:49] LABS: Anion Gap 13.8 mEq/L (5-15); Blood Urea Nitrogen 34 mg/dl (9-20); Calcium 8.7 mg/dl (8.4-10.2); Carbon Dioxide 29 mmol/L (22.0-30.0); Chloride 98 mmol/L (98-107); Creatinine Clearance Estimated 31 mL/min (50-200); Estimated Glomerular Filt Rate 27 ml/min (>60); GFR (African American) 33 ML/MIN (>60); Glucose 123 mg/dl (74-100); Potassium 3.8 mmoL/L (3.5-5.1); Sodium 137 mmol/L (136-145)
--- NOTE | 2022-11-10 09:01 | EXP.PN ---
Subjective *Date: 11/10/22 *Time: 09:01 Interval history: The patient is seen and examined at bedside today. I am accompanied by his nurse (Kylie). Nursing staff report that he remains afebrile with stable heart rates and downward trending blood pressures. He is saturating appropriately on room air. He interacted well with PT yesterday. His morning labs identify a creatinine 2.3 (baseline 1.4). He continues with diuretic therapy and ACC guided therapy for his heart failure with reduced ejection fraction. LifeVest district representative reports that he declined LifeVest. Exam Data for Last 24 hours Vital signs and Labs for Last 24 Hours: Temp Pulse Resp BP Pulse Ox O2 Del Method O2 Flow Rate 98.7 F 88 20 91/60 L 95 Room Air 2 11/10/22 07:25 11/10/22 07:25 11/10/22 07:25 11/10/22 07:25 11/10/22 07:25 11/10/22 07:25 11/09/22 06:38 Laboratory Results - last 24 hr 11/09/22 12:10: POC Glucose 130 H 11/10/22 06:25: Sodium 137, Potassium 3.8, Chloride 98, Carbon Dioxide 29, Anion Gap 13.8, BUN 34 H D, Creatinine 2.30 H, Estimated Creat Clear 31, Estimated GFR 27 L, Est GFR ( Amer) 33 L, Glucose 123 H, Calcium 8.7, Magnesium 1.8 D I & O for Last 24 hours: Intake & Output 11/07/22 11/08/22 11/09/22 11/10/22 23:59 23:59 23:59 23:59 Intake Total 390 / 390 240 / 840 2460 / 2920 820 / 820 Output Total 0 / 0 3250 / 3850 3100 / 3100 1025 / 1025 Balance 390 / 390 -3010 / -3010 -640 / -180 -205 / -205 Weight 98.174 kg 96.524 kg 94 kg 94 kg Constitutional Constitutional: no acute distress, obese and cooperative *Routine HEENT Exam Head: Present normocephalic Eye: Present EOMI and PERRL *Routine Neck Exam Neck: Present full ROM and trachea midline; Absent JVD or lymphadenopathy *Routine Respiratory Exam Respiratory: Present rhonchi, normal respiratory effort and symmetric chest movement *Routine Cardiovascular Exam Cardiovascular: Present RRR, Normal S1 and Normal S2 *Routine Extremities Exam Extremities: Present full ROM, pulses intact and normal capillary refill; Absent edema *Routine Skin Exam Skin: Present warm; Absent rash *Routine Neurological Exam Neurological: Present alert, oriented X3, moving all extremities, vision grossly intact, hearing grossly intact and normal speech; Absent sensory deficit or motor deficit Routine Psychiatric Exam Psychiatric: Present normal affect, normal thought process, cooperative, good insight and good judgment Assessment and Plan *Assessment and plan (1) Acute HFrEF (heart failure with reduced ejection fraction): Status: Acute Category: Medical Code(s): I50.21 - Acute systolic (congestive) heart failure (2) ALVARO (acute kidney injury): Status: Acute Category: Medical Code(s): N17.9 - Acute kidney failure, unspecified (3) Hypertension: Status: Acute Qualifiers: Hypertension type: primary hypertension Qualified Code(s): I10 - Essential (primary) hypertension Category: Medical Code(s): I10 - Essential (primary) hypertension (4) Abnormal ECG: Status: Acute Category: Medical Code(s): R94.31 - Abnormal electrocardiogram [ECG] [EKG] (5) Obesity (BMI 30-39.9): Status: Acute Category: Medical Code(s): E66.9 - Obesity, unspecified (6) BPH (benign prostatic hyperplasia): Status: Acute Category: Medical Code(s): N40.0 - Benign prostatic hyperplasia without lower urinary tract symptoms Plan 87-year-old with past medical history for hypertension, BPH, PRISCILA and noncompliant with CPAP and B12 deficiency that started experiencing shortness of air over the past week not improving with home care. He was evaluated by his watchstander on 11/07/2022 and an echocardiogram identified an EF of 30%. Problems addressed as follows: Acute kidney injury Chronic kidney disease stage IIIb Baseline creatinine 1.4 Recent contrast exposure with right and left heart c
--- NOTE | 2022-11-10 16:40 | PC.NURSE ---
notified about 0800 and 1600 hypotension, maps have been above 65. per yunier, hold 1600 lasix. pt states he feels more sluggish today. at bs
[2022-11-11] VITALS (10 sets, daily range): BP systolic 80–122; BP diastolic 43–63; PULSE 66–80; RESP 16–20; TEMP 36.5–36.9; O2SAT 92–99; BMI 28.3
--- NOTE | 2022-11-11 00:53 | PC.NURSE ---
BP 80/50, HR 68. DENIES SOA/CP/DISCOMFORT. ASYMPTOMATIC AT THIS TIME. MALCOLM N.P. NOTIFIED. WILL CONTINUE TO MONITOR FOR SYMPTOMS.
--- NOTE | 2022-11-11 04:34 | PC.NURSE ---
BPs CONTINUE TO RUN LOW, 87/43 AT THIS TIME. ASYMPTOMATIC. DENIES PAIN/SOA/DISCOMFORT. NAD. HAS RESTED WELL. TELE READING SINUS ARRHYTHMIA/BBB/PVCs.
[2022-11-11 07:58] LABS: Chloride 100 mmol/L (98-107); Potassium 4.3 mmoL/L (3.5-5.1); Sodium 136 mmol/L (136-145)
[2022-11-11 08:01] LABS: Anion Gap 13.3 mEq/L (5-15); Blood Urea Nitrogen 38 mg/dl (9-20); Calcium 8.7 mg/dl (8.4-10.2); Carbon Dioxide 27 mmol/L (22.0-30.0); Creatinine Clearance Estimated 33 mL/min (50-200); Estimated Glomerular Filt Rate 29 ml/min (>60); GFR (African American) 35 ML/MIN (>60); Glucose 113 mg/dl (74-100)
--- NOTE | 2022-11-11 09:17 | EXP.PN ---
Subjective *Date: 11/11/22 *Time: 09:17 Interval history: The patient is seen and examined at bedside today. I am accompanied by nursing staff. The patient denies dizziness, difficulty breathing, chest pain or weakness. He identifies improvement. He has interacted with physical therapy. Nursing staff report that he remains afebrile with stable heart rates and low blood pressures with appropriate maps. He is saturating appropriately on room air. He is requesting to see his proof coins inspector prior to discharge. His morning labs have identified a downward trend of his creatinine to 2.2 (baseline 1.4). Exam Data for Last 24 hours Vital signs and Labs for Last 24 Hours: Temp Pulse Resp BP Pulse Ox O2 Del Method O2 Flow Rate 97.9 F 80 18 122/57 L 92 L Room Air 2 11/11/22 07:29 11/11/22 08:00 11/11/22 07:29 11/11/22 07:29 11/11/22 07:29 11/11/22 07:29 11/09/22 06:38 Laboratory Results - last 24 hr 11/11/22 07:06: Sodium 136, Potassium 4.3, Chloride 100, Carbon Dioxide 27, Anion Gap 13.3, BUN 38 H, Creatinine 2.20 H, Estimated Creat Clear 33, Estimated GFR 29 L, Est GFR ( Amer) 35 L, Glucose 113 H, Calcium 8.7 I & O for Last 24 hours: Intake & Output 11/08/22 11/09/22 11/10/22 11/11/22 23:59 23:59 23:59 23:59 Intake Total 240 / 840 2460 / 2920 1779 710 / 710 Output Total 3250 / 3850 3100 / 3100 1025 / 1025 Balance -3010 / -3010 -640 / -180 755 / 995 710 / 710 Weight 96.524 kg 94 kg 94 kg 94.801 kg Constitutional Constitutional: no acute distress, obese and cooperative *Routine HEENT Exam Head: Present normocephalic Eye: Present EOMI and PERRL *Routine Neck Exam Neck: Present full ROM and trachea midline; Absent JVD or lymphadenopathy *Routine Respiratory Exam Respiratory: Present rhonchi, normal respiratory effort and symmetric chest movement *Routine Cardiovascular Exam Cardiovascular: Present RRR, Normal S1 and Normal S2 *Routine Extremities Exam Extremities: Present full ROM, pulses intact and normal capillary refill; Absent edema *Routine Skin Exam Skin: Present warm; Absent rash *Routine Neurological Exam Neurological: Present alert, oriented X3, moving all extremities, vision grossly intact, hearing grossly intact and normal speech; Absent sensory deficit or motor deficit Routine Psychiatric Exam Psychiatric: Present normal affect, normal thought process, cooperative, good insight and good judgment Assessment and Plan *Assessment and plan (1) Acute HFrEF (heart failure with reduced ejection fraction): Status: Acute Category: Medical Code(s): I50.21 - Acute systolic (congestive) heart failure (2) ALVARO (acute kidney injury): Status: Acute Category: Medical Code(s): N17.9 - Acute kidney failure, unspecified (3) Hypertension: Status: Acute Qualifiers: Hypertension type: primary hypertension Qualified Code(s): I10 - Essential (primary) hypertension Category: Medical Code(s): I10 - Essential (primary) hypertension (4) Abnormal ECG: Status: Acute Category: Medical Code(s): R94.31 - Abnormal electrocardiogram [ECG] [EKG] (5) Obesity (BMI 30-39.9): Status: Acute Category: Medical Code(s): E66.9 - Obesity, unspecified (6) BPH (benign prostatic hyperplasia): Status: Acute Category: Medical Code(s): N40.0 - Benign prostatic hyperplasia without lower urinary tract symptoms Plan 87-year-old with past medical history for hypertension, BPH, PRISCILA and noncompliant with CPAP and B12 deficiency that started experiencing shortness of air over the past week not improving with home care. He was evaluated by his proof coins inspector on 11/07/2022 and an echocardiogram identified an EF of 30%. Problems addressed as follows: Acute kidney injury Chronic kidney disease stage IIIb Baseline creatinine 1.4 Recent contrast exposure with right and left heart cath ACC guided therapy fo
--- NOTE | 2022-11-11 18:48 | PC.NURSE ---
Patient's vital signs stab\le and patient alert and oriented times 4
[2022-11-12] VITALS: BP 95/60; PULSE 71; PULSE 80; RESP 18; TEMP 37; O2SAT 95
[2022-11-12 04:00] VITALS: BP 101/66; PULSE 66; PULSE 70; RESP 18; TEMP 36.6; O2SAT 95; BMI 27.9
--- NOTE | 2022-11-12 05:11 | PC.NURSE ---
Patient has rested through the shift. No new complaints from the patient.
[2022-11-12 06:16] LABS: Chloride 102 mmol/L (98-107); Potassium 4.8 mmoL/L (3.5-5.1); Sodium 136 mmol/L (136-145)
[2022-11-12 06:18] LABS: Blood Urea Nitrogen 36 mg/dl (9-20); Creatinine Clearance Estimated 36 mL/min (50-200); Estimated Glomerular Filt Rate 32 ml/min (>60); GFR (African American) 39 ML/MIN (>60)
[2022-11-12 06:19] LABS: Anion Gap 12.8 mEq/L (5-15); Calcium 9.3 mg/dl (8.4-10.2); Carbon Dioxide 26 mmol/L (22.0-30.0); Glucose 114 mg/dl (74-100)
[2022-11-12 06:29] LABS: NT Pro Brain Natriuretic Pep. 1240 pg/mL (0-450)
[2022-11-12 07:42] VITALS: BP 116/60; PULSE 94; RESP 18; TEMP 36.9; O2SAT 96
[2022-11-12 08:00] VITALS: PULSE 80
[2022-11-12 08:04] LABS: Magnesium 1.6 mg/dl (1.6-2.3)
--- NOTE | 2022-11-12 10:46 | EXP.CARD.PN ---
Subjective Subjective Date: 11/12/22 Time: 10:47 Principal diagnosis: HFrEF Interval history: Cr has improved over the weekend. Pt denies CP, Orthopnea, and LE edema. He feels ready for discharge. He is declining LifeVest. Exam Data for Last 24 hours Vital signs and Labs for Last 24 Hours: Temp Pulse Resp BP Pulse Ox O2 Del Method O2 Flow Rate 98.5 F 80 18 116/60 96 Room Air 2 11/12/22 07:42 11/12/22 08:00 11/12/22 07:42 11/12/22 07:42 11/12/22 07:42 11/12/22 09:00 11/09/22 06:38 Laboratory Results - last 24 hr 11/12/22 05:55: Sodium 136, Potassium 4.8, Chloride 102, Carbon Dioxide 26, Anion Gap 12.8, BUN 36 H, Creatinine 2.00 H, Estimated Creat Clear 36, Estimated GFR 32 L, Est GFR ( Amer) 39 L, Glucose 114 H, Calcium 9.3, Magnesium 1.6 D, NT-Pro-B Natriuret Pep 1240 H I & O for Last 24 hours: Intake & Output 11/09/22 11/10/22 11/11/22 11/12/22 23:59 23:59 23:59 23:59 Intake Total 2460 / 2920 1780 / 2020 1420 / 1420 360 / 360 Output Total 3100 / 3100 1025 / 1025 350 / 350 0 / 0 Balance -640 / -180 755 / 995 1070 / 1070 360 / 360 Weight 207 lb 3.752 oz 207 lb 3.752 oz 209 lb 206 lb 8 oz Constitutional Constitutional: no acute distress *Routine Respiratory Exam Respiratory: Present normal respiratory effort; Absent wheezes or crackles *Routine Cardiovascular Exam Cardiovascular: Present RRR; Absent murmur *Routine Extremities Exam Extremities: Absent edema *Routine Skin Exam Skin: Present intact and warm *Routine Neurological Exam Neurological: Present alert and oriented X3 Routine Psychiatric Exam Psychiatric: Present cooperative Progress Note: A&P Assessment and plan (1) Acute HFrEF (heart failure with reduced ejection fraction): Status: Acute (2) ALVARO (acute kidney injury): Status: Acute (3) Hypertension: Status: Acute (4) Abnormal ECG: Status: Acute (5) Obesity (BMI 30-39.9): Status: Acute (6) BPH (benign prostatic hyperplasia): Status: Acute Assessment and Plan Assessment and Plan for All Diagnoses:: HFrEF, Non-ischemic dilated cardiomyopathy - new dx this admission with recent OP ECHO showing EF 35% and NYHA = 3-4 HF symptoms - LHC this admission showed non-obs CAD. Presumed etiology is myocarditis - Pt has diuresed back to baseline, no orthopnea or peripheral edmea at this time. - He has stable vitals and improving renal function on Entresto, Coreg, Aldactone, Jardiance. - Reduce diuretics to PRN - Numerous long discussions with patient about advantage of LifeVest for his elevated risk of VT/VF and sudden cardiac . He repeatedly declines to numerous clinicians and LifeVest rep. Patient had LifeVest with poor experience and he does not want to repeat. Patient keeps insisting he will get a little card from [employer] which monitors his heart rate. We have explained repeatedly in detail that would do nothing for VT or V-fib. -Patient needs to keep twice daily blood pressure and heart rate log and bring to his office visit. We will follow-up with him 1 to 2 weeks in the clinic with BMP and blood pressure log. He should call the office before then with any questions or concerns. Nonobstructive coronary artery disease -New diagnosis this admission per left heart cath -Continue aspirin, statin, beta-ayaz Severe Pulmonary Htn - new dx this admission per LHC - former smoker - recommend Pulm workup outpatient - nebs/steroids per primary service Acute Kidney Injury - Baseline Cr 1.2, up to 2.3 here due to diuresis, HF meds, and LHC - downward trend of Cr x3 days - discussed with pt in detail - cont current meds, repeat labs 1-2 weeks, avoid dehydration *Pt is CV stable for discharge home on current meds. He needs f/u in our clinic 1-2 weeks. Please advise if we can be of any further assistance this admission. Thank you.
[2022-11-12 11:48] VITALS: BP 119/67; PULSE 79; RESP 18; TEMP 37.2; O2SAT 98
[2022-11-12 12:00] VITALS: PULSE 80
--- NOTE | 2022-11-12 12:22 | EXP.DC.SUM ---
General Admission date:: 11/07/22 Discharge date: 11/12/22 HPI HPI HPI: This is an 87-year-old male who presented to his cardiology office this morning for evaluation of dyspnea that began on Saturday. His past medical history is significant for Hypertension, B12 deficiency and obstructive sleep apnea noncompliant with CPAP therapy. He reports on Saturday afternoon experiencing a sudden episode of dyspnea that resolved with rest and no associated retrosternal chest pain, palpitations, confusion, diaphoresis or nausea and vomiting. He attempted to go to sleep and identified orthopnea and tried to change positions to breathe better. His symptomatology eased up over a couple days and then returned prompting a call for a cardiology evaluation. In the cushion spring assembler office a quick look echo identified an ejection fraction of 30% and admission to the hospital was recommended. The patient was amendable. He is accompanied by his of 40 years that assists with the history. He denies a past history of coronary artery disease, previous left heart cath or hospital admissions. Hospital Course Hospital Course Hospital Course: 87-year-old with past medical history for hypertension, BPH, PRISCILA and noncompliant with CPAP and B12 deficiency that started experiencing shortness of air over the past week not improving with home care. He was evaluated by his cushion spring assembler on 11/07/2022 and an echocardiogram identified an EF of 30%. Taken for left heart cath on 11/08. Found to have widely patent coronaries. Severe pulmonary hypertension and severely reduced EF. Recommended LifeVest prior to discharge but patient declined. Stable for discharge home with continued medical management and close follow-up with cardiology. Problems addressed as follows during hospitalization: Acute kidney injury Chronic kidney disease stage IIIb Baseline creatinine 1.4. Creatinine elevated after contrast exposure with peak of 2.3. Showing gradual improvement by day of discharge. Patient responding to diuresis for volume overload and heart failure which is likely component in his ALVARO. Continue treatment with diuretics. Close follow-up with cardiology for repeat labs within the next week. Avoiding nephrotoxins. Avoid NSAIDs. Acute on chronic heart failure with reduced ejection fraction Pulmonary hypertension Coronary artery disease Nonischemic cardiomyopathy Hypertension - new dx this admission with recent OP ECHO showing EF 35% and NYHA = 3-4 HF symptoms. Left heart cath obtained with nonobstructive CAD. Presumed etiology at this time for his cardiomyopathy is myocarditis. Patient initiated on diuretics with improvement in symptoms. Diuresed aggressively. No orthopnea or peripheral edema by day of discharge. Vital stable. Plan to continue Entresto, Coreg, Aldactone, Jardiance at discharge. Continue Lasix as needed for weight gain over 2 pounds in a day. Close follow-up with cardiology for further management. Extensive discussion with cardiology about benefits of LifeVest. Patient stated he does not want LifeVest at this time. Risks and benefits explained. Patient will be discharged without LifeVest even after encouragement that it be provided. We will have repeat imaging in the next 1 to 3 months to evaluate possible improvement in EF to determine need for AICD placement. Severe pulmonary hypertension New diagnosis this admission per left heart cath. Patient is a former smoker. Would benefit from referral to pulmonology as an outpatient. BPH: Continue tamsulosin therapy with 0.4 mg nightly. Stable for discharge home. Spent 40 minutes in discharge counseling, consultation with subspecialist, documentation, and direct care with patient. Exam Data for Last 24 hours Vital signs and Labs for Last 24 Hours: Temp Pulse Resp BP Pulse Ox O2 Del Method O2 Flow Rate 98.9 F 79 18 119/67 98 Room Air 2 11/12/22 11:48 11/12/22 11:48 11/12/22 11:48 11/12/22 11:48 1
--- NOTE | 2022-11-12 12:46 | PC.NURSE ---
RESP CARE NOTE: Discussed six minute walk test for home oxygen approval with patient. SPO2 on room air is at 97%. Pt states he is not interested in doing a walk test, and he isn't interested at this time with home oxygen. RN notified and patient states if oxygen is needed later, he will discuss it with his physician.
--- NOTE | 2022-11-14 13:13 | CARE MANAGER ---
Attempted to contact patient x 2 related to hospital discharge. Left voicemail message. FRANK Romero
== END 2022-11-12 14:00 | disposition home or self-care (01) | DRG 286 ==
PROVIDERS: Internal Medicine; Nurse Practitioner Family; Admitting Provider Family Medicine; PCP Emergency Medicine; Visit Provider Family Medicine
PROC: 4A023N8 Measurement of Cardiac Sampling and Pressure, Bilateral, Percutaneous Approach (ICD-10-PCS; principal; 2022-11-08 11:30)
DX: I13.0 Hypertensive heart and chronic kidney disease with heart failure and stage 1 through stage 4 chronic kidney disease, or unspecified chronic kidney disease (principal); I50.23 Acute on chronic systolic (congestive) heart failure; N17.9 Acute kidney failure, unspecified; I42.9 Cardiomyopathy, unspecified; R94.31 Abnormal electrocardiogram [ECG] [EKG]; E66.9 Obesity, unspecified; N40.0 Benign prostatic hyperplasia without lower urinary tract symptoms; E78.2 Mixed hyperlipidemia; G47.33 Obstructive sleep apnea (adult) (pediatric); I27.20 Pulmonary hypertension, unspecified; I25.10 Atherosclerotic heart disease of native coronary artery without angina pectoris; Z87.891 Personal history of nicotine dependence; Z68.28 Body mass index [BMI] 28.0-28.9, adult; J44.9 Chronic obstructive pulmonary disease, unspecified; N18.32 Chronic kidney disease, stage 3b
CPT/HCPCS: 36415; 71045; 71046; 80048; 80053; 80061; 80076; 82810; 82962; 83036; 83735; 83880; 84439; 84443; 84484; 85025; 85610; 93005; 93306; 93453; 94640; 97163; 99152; 99153; C1725; C1769; C1894; J1644; J2405; J3475; Q9957; Q9967

== ENCOUNTER → 2022-11-14 12:58 | Outpatient (CLI) | payer MEDICARE, SELFPAY ==
--- NOTE | 2022-11-14 13:47 | US_ITS ---
FINAL REPORT TECHNIQUE: Sonographic images were obtained of the urinary bladder. CLINICAL HISTORY: ureter and bladder ultrasound FINDINGS: Prevoid bladder volume: 158 mL Post void bladder volume: 16 mL Bilateral ureteral jets are visualized. No focal bladder abnormalities are identified. IMPRESSION: Small postvoid residual. Reviewed, Interpreted and Dictated by Dm Navas III, MD Transcribed by Damon Callahan Authenticated and [facility]
== END ==
PROVIDERS: PCP Emergency Medicine; Visit Provider Internal Medicine
DX: N17.9 Acute kidney failure, unspecified
CPT/HCPCS: 76857

== ENCOUNTER → 2022-11-28 10:21 | Outpatient (CLI) | payer MEDICARE, SELFPAY ==
[2022-11-28 12:08] LABS: Chloride 101 mmol/L (98-107); Sodium 137 mmol/L (136-145)
[2022-11-28 12:11] LABS: Blood Urea Nitrogen 52 mg/dl (9-20); Estimated Glomerular Filt Rate 26 ml/min (>60); GFR (African American) 31 ML/MIN (>60)
[2022-11-28 12:12] LABS: Calcium 9.3 mg/dl (8.4-10.2); Carbon Dioxide 24 mmol/L (22.0-30.0); Glucose 114 mg/dl (74-100)
[2022-11-28 15:00] LABS: Prostate Specific Ag, Diagnost 2.22 ng/ml (0.0-4.0)
== END ==
PROVIDERS: PCP Emergency Medicine; Visit Provider Nurse Practitioner Family
DX: N40.0 Benign prostatic hyperplasia without lower urinary tract symptoms (principal); I25.10 Atherosclerotic heart disease of native coronary artery without angina pectoris; I10 Essential (primary) hypertension; Z87.891 Personal history of nicotine dependence
CPT/HCPCS: 36415; 80048; 84153

== ENCOUNTER → 2022-12-12 23:30 | Outpatient (CLI) | payer MEDICARE, SELFPAY ==
[2022-12-12 20:29] LABS: Anion Gap 15.4 mEq/L (5-15); Blood Urea Nitrogen 30 mg/dl (9-20); Calcium 9.4 mg/dl (8.4-10.2); Carbon Dioxide 27 mmol/L (22.0-30.0); Chloride 99 mmol/L (98-107); Estimated Glomerular Filt Rate 36 ml/min (>60); GFR (African American) 44 ML/MIN (>60); Glucose 113 mg/dl (74-100); Potassium 4.4 mmoL/L (3.5-5.1); Sodium 137 mmol/L (136-145)
== END ==
PROVIDERS: PCP Emergency Medicine; Visit Provider Emergency Medicine
DX: N17.9 Acute kidney failure, unspecified (principal)
CPT/HCPCS: 80048

== ENCOUNTER → 2023-02-07 09:40 | Outpatient (CLI) | payer MEDICARE, SELFPAY ==
--- NOTE | 2023-02-07 09:41 | CA_ITS ---
APPROVED REPORT EXAM: Comprehensive 2D, Doppler, and color-flow Echocardiogram Residential Interior Designer: Linda Ellis RT(R) Ht: 6 ft 0 in Wt: 203lbs BSA: 2.14 BP: 98/60 mmHg Indications: ordered as limited to reassess EF, echo 11/07/22 EF 25-30%, hx CM, PRISCILA, PHTN, CHF, SOB, hyperlipidemia, BP fluctuations. 2D Dimensions LVEF (Jackson's) 40.00 % M: 52 - 72 LV Volume 121.60 mL M: 62 - 150 LV Volume Index 56.8 mL/m2 M: 34 - 74 EF AP4 32.70 % EF AP2 43.5 % EF BP 40.0 % GL Strain -8.0 % M-Mode Dimensions RVDd 3.27 cm (0.9-2.6) LA Diam 3.28 cm (1.9-4.0) LVDd 4.38 cm (3.5-5.7) LVDs 3.53 cm (3.5-5.7) IVSd 1.36 cm (0.6-1.1) PWd 1.23 cm (0.6-1.1) EF (Teich) 40.20% FS 19.40% EDV (Teich) 86.80 mL ESV (Teich) 51.90 mL LV Diastology E Decel Time 163 (160-240 msec) E/A Ratio 0.5 Mitral Valve MV E Max Aiden. 62.0 (40-130 cm/s) MV A Velocity 120.0 (40-130 cm/s) E/A Ratio 0.51 MV PHT 48.0 ms Other Information Study Quality: Fair Conclusion This is a limited TTE to evaluate for LVEF. Limited windows were obtained. The left ventricle appears normal in size. There is increased LV wall thickness. There is mild reduction in global LV systolic function. LVEF is 45%. The right ventricle is normal in size and function. The right and left atrial sizes are normal. Compared to prior study from 10/2022, the LVEF is now improved. Electronically signed by : Marina Cid MD 02/07/2023 12:45:22
== END ==
LOC: RT 09:41
PROVIDERS: PCP Emergency Medicine; Visit Provider Internal Medicine
DX: I50.20 Unspecified systolic (congestive) heart failure (principal); I50.21 Acute systolic (congestive) heart failure
CPT/HCPCS: 93308

== ENCOUNTER 2023-03-04 12:38 | Outpatient (CLI) | payer MEDICARE, SELFPAY ==
--- NOTE | 2023-03-04 12:43 | XR_ITS ---
FINAL REPORT TECHNIQUE: Chest PA & Lateral CLINICAL HISTORY: fatigue, cough and shortness of breath COMPARISON: 11/07/2022 FINDINGS: 2 views of the chest were performed. The heart size is normal. The mediastinum is within normal limits. There is no acute cardiopulmonary process. There are no pleural effusions. There is no pneumothorax. The bony thorax appears intact. IMPRESSION: No acute cardiopulmonary process. Reviewed, Interpreted and Dictated by Tobin Borges MD Transcribed by Jinny De Los Santos Authenticated and [facility]
[2023-03-04 13:33] LABS: Basophils % 0.4 % (0.1-2.0); Eosinophils # 0.2 K/mm3 (0.0-0.4); Eosinophils % 2.5 % (0.1-12.0); Hematocrit 39.7 % (42.0-52.0); Hemoglobin 13.4 g/dL (14.1-18.0); Lymphocytes # 1.7 K/mm3 (0.7-4.5); Lymphocytes % 22.8 % (10-50); Mean Corpuscular HGB Conc 33.7 g/dL (31.8-35.4); Mean Corpuscular Hemoglobin 33.1 pg (27.0-31.2); Mean Corpuscular Volume 98.3 fl (80-94); Mean Platelet Volume 9.3 fl (7.4-10.4); Monocytes # 0.3 K/mm3 (0.1-1.0); Monocytes % 4.6 % (1.7-9.3); Neutrophils # 5.2 K/mm3 (1.8-7.8); Neutrophils % 69.8 % (37.0-80.0); Platelet Count 223 K/mm3 (142-424); Red Blood Count 4.04 M/mm3 (4.60-6.20); Red Cell Distribution Width 13.8 % (11.5-17.5); White Blood Count 7.5 K/mm3 (4.8-10.8)
[2023-03-04 15:11] LABS: Alanine Aminotransferase 39 U/L (12-78); Albumin Level 4.2 g/dl (3.5-5.0); Alkaline Phosphatase 91 U/L (38-126); Anion Gap 17.6 mEq/L (5-15); Aspartate Amino Transferase 69 U/L (17-59); Bilirubin,Direct 0.6 mg/dl (0.0-0.4); Bilirubin,Total 0.6 mg/dl (0.2-1.3); Blood Urea Nitrogen 59 mg/dl (9-20); Carbon Dioxide 25 mmol/L (22.0-30.0); Chloride 101 mmol/L (98-107); Chol/HDL Ratio 6.5 (1-3.5); Cholesterol 208 mg/dl (140-200); Estimated Glomerular Filt Rate 16 ml/min (>60); GFR (African American) 19 ML/MIN (>60); Glucose 98 mg/dl (74-100); HDL Cholesterol 32 mg/dl (40-60); Potassium 4.6 mmoL/L (3.5-5.1); Sodium 139 mmol/L (136-145); Total Protein,Serum 6.7 g/dl (6.3-8.2); Triglycerides 181 mg/dl (30-150); VLDL Cholesterol 36 mg/dL (0-40)
[2023-03-04 15:23] LABS: Direct LDL Cholesterol 135.64 mg/dL (100-129)
[2023-03-04 21:34] LABS: Free T4 (Free Thyroxine) 1.52 ng/dl (0.78-2.19)
[2023-03-04 21:48] LABS: Thyroid Stimulating Hormone 1.32 uIU/mL (0.465-4.68)
== END 2023-03-04 23:59 ==
LOC: LAB 12:40
PROVIDERS: PCP Internal Medicine; Visit Provider Internal Medicine
DX: E78.5 Hyperlipidemia, unspecified (principal); G47.33 Obstructive sleep apnea (adult) (pediatric); I10 Essential (primary) hypertension; I25.10 Atherosclerotic heart disease of native coronary artery without angina pectoris; I27.20 Pulmonary hypertension, unspecified; I50.20 Unspecified systolic (congestive) heart failure; I50.21 Acute systolic (congestive) heart failure; N17.9 Acute kidney failure, unspecified; R53.83 Other fatigue; E11.9 Type 2 diabetes mellitus without complications; I11.9 Hypertensive heart disease without heart failure; R06.00 Dyspnea, unspecified; I42.8 Other cardiomyopathies
CPT/HCPCS: 36415; 71046; 80048; 80061; 80076; 84439; 84443; 85025

== ENCOUNTER 2023-03-04 16:52 | Observation (INO) | payer MEDICARE, SELFPAY ==
--- NOTE | 2023-03-04 17:01 | PC.NURSE ---
arrived by w/c from ED admissions
[2023-03-04 17:21] VITALS: BP 89/53; PULSE 92; RESP 18; TEMP 36.5; O2SAT 97
[2023-03-04] MEDS: SODIUM CHLORIDE 0.9% 10ML FLUSH SYRINGE 10 ML IV (17:28)
[2023-03-04] MEDS: LACTATED RINGERS 1000ML 1,000 ML 100 ML IV (17:28)
--- NOTE | 2023-03-04 17:49 | P.HP_ITS ---
History of Present Illness *Admission Date: 03/04/23 *Reason for visit:: weakness *History of present illness: Mr. Carpenter is an 87-year-old male with significant cardiac history. He presented to cardiology clinic earlier today along with his PCP. He presented for routine follow-up. Weight was noted to be down from previous visits. Since October he has lost approximately 30 pounds due to fluid optimization. He has been having some mild chest discomfort with and without activity, shortness of breath in the shower and when arms are above his head. Complaining of some dizziness and lightheadedness on occasion. Denies any increased swelling in his legs, nausea, vomiting, syncope. Of note was sick a few weeks ago with a significant cough/URI and is just not felt back to his normal self since. During his visit with cardiology, labs were obtained. After discharging from the office his lab results returned showing an ALVARO with creatinine with 7. Baseline creatinine is 1.8-2.2. He has been taking his medications as prescribed. Currently on diuretics and states his urine output has been decreased since his respiratory symptoms over the past few weeks. Denies any fever or productive cough. Cardiology contacted the patient and informed him to come to the hospital for admission for treatment of his ALVARO and weakness. Medicine was consulted for admission and further management. On arrival to the floor, he is stable on room air. Stable to blood in his somewhat soft. Denies any edinson chest pain at this time. No further shortness of breath on exam. [facility] Disclaimer: The information contained in this section may have been updated after the patient was seen, as this information can be updated by other users. 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 Shortness of Breath Vitamin B12 deficiency Surgical History Normal colonoscopy Social History Smoking Status: Former smoker alcohol intake: never substance use type: denies use current occupational status: employed Travel in the last 8 weeks: None Meds Home Medications and Allergies Home Medications Medication Instructions Recorded Confirmed Type cyanocobalamin (vitamin B-12) 1,000 mcg IM WEEKLY Supplement 11/07/22 03/04/23 History 1,000 mcg/mL injection solution nitroglycerin 0.4 mg sublingual 0.4 mg sublingual Q5MINP PRN Chest 11/12/22 03/04/23 Rx tablet (Nitrostat) Pain 30 days #25 tabs omeprazole 20 mg capsule,delayed 20 mg PO DAILY Acid Reflux #90 caps 11/14/22 03/04/23 Rx release aspirin 81 mg tablet,delayed 81 mg PO DAILY 90 days #90 tabs 12/10/22 03/04/23 Rx release empagliflozin 10 mg tablet 10 mg PO DAILY 90 days #90 tabs 12/10/22 03/04/23 Rx (Jardiance) furosemide 40 mg tablet 40 mg PO DAILY edema 90 days #90 12/10/22 03/04/23 Rx tabs sacubitril 24 mg-valsartan 26 mg 1 tab PO BID 90 days #180 tabs 12/10/22 03/04/23 Rx tablet (Entresto) spironolactone 25 mg tablet 25 mg PO DAILY 90 days #90 tabs 12/10/22 03/04/23 Rx loratadine 10 mg tablet (Allergy 10 mg PO DAILY Allergy Symptoms 90 01/31/23 03/04/23 Rx Relief (loratadine)) days #90 tabs tamsulosin 0.4 mg capsule 0.4 mg PO HS Prostate 90 days #90 01/31/23 03/04/23 Rx caps metoprolol succinate 25 mg 12.5 mg PO DAILY 03/04/23 03/04/23 History tablet,extended release 24 hr New Prescriptions to Start Prescriptions: Allergies Allergy/AdvReac Type Severity Reaction Status Date / Time Penicillins Allergy Severe stops Verified 03/04/23 14:28 breathing statins AdvReac Mild Nausea Uncoded 03/04/23 14:28 Exam Data for Last 24 hours Vital signs and Labs for Last 24 Hours: Temp Pulse Resp BP Pulse Ox O2 Del Method 97.7 F 92 H 18 89/53 L 97 Room Air 03/04/23 17:21 03/04/23 17:21 03/04/23 17:21 03/04/23 17:21 03/04/23 17:21 03/04/23 17:21 Constitutional Constitutional: no acute distress, obese and cooperative *Routine HEENT Exam Head: Present normocephalic Eye: Present EOMI and PERRL ENT: Present mucous membranes moist *Routine Neck Exam Neck: Present supple and trachea midline; Absent JVD or lymphadenopathy *Routine Respiratory Exam Respiratory: Present normal respiratory effort and symmetric chest movement; Absent rhonchi, wheezes or crackles *Routine Cardiovascular Exam Cardiovascular: Present RRR, Normal S1 and Normal S2; Absent murmur *Routine Abdominal Exam Abdominal: Present soft and normoactive bowel sounds; Absent tenderness *Routine Rectal Exam Rectal:: deferred *Routine Genitalia Exam Genitalia:: deferred *Routine Extremities Exam Extremities: Present full ROM, pulses intact and normal capillary refill; Absent cyanosis, clubbing or edema *Routine Skin Exam Skin: Present warm; Absent rash *Routine Neurological Exam Neurological: Present alert, oriented X3, moving all extremities and normal speech; Absent sensory deficit or motor deficit Routine Psychiatric Exam Psychiatric: Present normal affect, normal thought process, cooperative, good insight and good judgment Assessment and Plan *Assessment and plan (1) ALVARO (acute kidney injury): Status: Acute Category: Medical Code(s): N17.9 - Acute kidney failure, unspecified (2) Fatigue: Status: Acute Qualifiers: Fatigue type: unspecified Qualified Code(s): R53.83 - Other fatigue Category: Medical Code(s): R53.83 - Other fatigue (3) HFrEF (heart failure with reduced ejection fraction): Status: Chronic Category: Medical Code(s): I50.20 - Unspecified systolic (congestive) heart failure (4) Coronary artery disease: Status: Chronic Qualifiers: Coronary Disease-Associated Artery/Lesion type: [place] artery [place] vs. transplanted heart: [place] heart Associated angina: without angina Qualified Code(s): I25.10 - Atherosclerotic heart disease of [place] coronary artery without angina pectoris Category: Medical Code(s): I25.10 - Atherosclerotic heart disease of [place] coronary artery without angina pectoris (5) PRISCILA (obstructive sleep apnea): Problem Comment: Patient refuses to use the CPAP. Status: Chronic Category: Medical Code(s): G47.33 - Obstructive sleep apnea (adult) (pediatric) (6) Hyperlipidemia: Status: Chronic Qualifiers: Hyperlipidemia type: mixed hyperlipidemia Qualified Code(s): E78.2 - Mixed hyperlipidemia Category: Medical Code(s): E78.5 - Hyperlipidemia, unspecified (7) Cardiomyopathy: Status: Chronic Qualifiers: Cardiomyopathy type: unspecified Qualified Code(s): I42.9 - Cardiomyopathy, unspecified Category: Medical Code(s): I42.9 - Cardiomyopathy, unspecified (8) BPH (benign prostatic hyperplasia): Status: Chronic Category: Medical Code(s): N40.0 - Benign prostatic hyperplasia without lower urinary tract symptoms (9) Chronic kidney disease, stage 3a: Status: Chronic Category: Medical Code(s): N18.31 - Chronic kidney disease, stage 3a Plan 87-year-old male with history of heart failure, CAD, hypertension, BPH. Presented to his PCP and cardiology offices today for fatigue and routine follow-up. Labs showed ALVARO. Discussed case with cardiology, request admission for fluid hydration, adjustments to medications, and close monitoring. Medicine agreed to admit for further management. On arrival patient is stable on room air with soft blood pressures but no syncope. Problems addressed as follows: ALVARO on CKD Fatigue/weakness -Labs obtained prior to admission, concerninig for dehydration. Creatinine 3.7, BUN 59. Will initiate gentle hydration with LR at 100 cc an hour. Holding diuretics. Holding ARNI. -Repeat CBC, CMP, magnesium ordered for the morning. Heart failure with reduced ejection fraction CAD Cardiomyopathy Hypertension Hyperlipidemia -Continue aspirin 81 mg daily, metoprolol succinate 12.5 mg daily. -Will hold spironolactone, Entresto, Lasix, Jardiance in the setting of ALVARO and soft blood pressure. -Cardiology consulted, appreciate their recommendations. BPH: Continue tamsulosin 0.4 mg nightly GERD: Continue PPI nightly with pantoprazole formulary conversion Full code cardiac diet
[2023-03-04 20:00] VITALS: BP 99/51; PULSE 87; RESP 16; TEMP 36.5; O2SAT 95
[2023-03-04] MEDS: TAMSULOSIN 0.4MG CAPSULE 0.400000000000000022 MG PO (20:10)
[2023-03-04] MEDS: PANTOPRAZOLE 40MG TABLET 40 MG PO (20:10)
[2023-03-04 20:11] VITALS: BMI 26.0
[2023-03-05] MEDS: LACTATED RINGERS 1000ML 1,000 ML 100 ML IV (03:19)
[2023-03-05 04:00] VITALS: BP 87/51; PULSE 74; RESP 16; TEMP 36.7; O2SAT 97; BMI 27.1
--- NOTE | 2023-03-05 04:58 | PC.NURSE ---
Patient has had a good night. Has rested on and off through the shift. Patient has been independent to the bathroom through the night. Patient remains on room air and has had no complaints. BP have been soft through the shift but patient has been asymptomatic the whole time. No other issues noted.
[2023-03-05 06:47] LABS: Basophils % 0.1 % (0.1-2.0); Eosinophils # 0.2 K/mm3 (0.0-0.4); Hematocrit 33.6 % (42.0-52.0); Lymphocytes # 1.5 K/mm3 (0.7-4.5); Lymphocytes % 29.2 % (10-50); Mean Corpuscular Hemoglobin 32.7 pg (27.0-31.2); Mean Corpuscular Volume 96.3 fl (80-94); Mean Platelet Volume 8.5 fl (7.4-10.4); Monocytes # 0.3 K/mm3 (0.1-1.0); Monocytes % 5.6 % (1.7-9.3); Neutrophils # 3.1 K/mm3 (1.8-7.8); Neutrophils % 62.1 % (37.0-80.0); Platelet Count 154 K/mm3 (142-424); Red Blood Count 3.49 M/mm3 (4.60-6.20); Red Cell Distribution Width 13.7 % (11.5-17.5)
[2023-03-05 06:56] LABS: Alanine Aminotransferase 37 U/L (12-78); Albumin Level 3.3 g/dl (3.5-5.0); Albumin/Globulin Ratio 1.4 (1.1-1.8); Alkaline Phosphatase 82 U/L (38-126); Anion Gap 11.4 mEq/L (5-15); Aspartate Amino Transferase 61 U/L (17-59); Bilirubin,Total 0.6 mg/dl (0.2-1.3); Blood Urea Nitrogen 49 mg/dl (9-20); Calcium 8.4 mg/dl (8.4-10.2); Carbon Dioxide 26 mmol/L (22.0-30.0); Chloride 104 mmol/L (98-107); Creatinine Clearance Estimated 24 mL/min (50-200); Estimated Glomerular Filt Rate 21 ml/min (>60); GFR (African American) 25 ML/MIN (>60); Globulin 2.4 g/dL (1.3-3.2); Glucose 95 mg/dl (74-100); Magnesium 1.4 mg/dl (1.6-2.3); Potassium 4.4 mmoL/L (3.5-5.1); Sodium 137 mmol/L (136-145); Total Protein,Serum 5.7 g/dl (6.3-8.2)
[2023-03-05 06:57] LABS: Hemoglobin 11.4 g/dL (14.1-18.0)
--- NOTE | 2023-03-05 07:30 | HMH.PHAINT1 ---
Pharmacy Intervention Comments: Home med list verified with patient at bedside and with external pharmacy list.
[2023-03-05 08:00] VITALS: BP 118/70; PULSE 93; RESP 18; TEMP 36.9; O2SAT 99
[2023-03-05] MEDS: METOPROLOL SUCCINATE XL 25MG TABLET 12.5 MG PO (10:01)
[2023-03-05] MEDS: ASPIRIN EC 81MG TABLET 81 MG PO (10:01)
[2023-03-05] MEDS: MAGNESIUM SULFATE IN WATER 2 GM/50 ML PIGGYBACK IV (10:01)
--- NOTE | 2023-03-05 10:50 | P.CONCA_ITS ---
History of Present Illness History of Present Illness Consult date: 03/05/23 Requesting physician: Yimi Fleming Consult reason: congestive heart failure Chief complaint: weakness, low BP, ALVARO History of present illness: 87-year-old white male established patient of our practice as of November 2022 with EF 35%, severe pulmonary hypertension, severe RV dilation. He had a heart cath which revealed nonobstructive disease and he declined a LifeVest. He has been managed on guideline directed medical therapy since that time but reports his blood pressure has been remaining low and in the 90s. He was evaluated for this in the office yesterday and was very fatigued with BP 80s?90s. Labs same day showed creatinine up from 1.8 to 3.7 indicating ALVARO. He was called advised to present to the hospital for admission. He was admitted overnight given 1 L lactated Ringer's at 100/h. This morning he states he is feeling significantly better, BP 120s, creatinine 2.9, his heart failure meds are currently all on hold. [facility] Disclaimer: The information contained in this section may have been updated after the pat ient was seen, as this information can be updated by other users. 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 Shortness of Breath Vitamin B12 deficiency Surgical History Normal colonoscopy Social History Smoking Status: Former smoker alcohol intake: never substance use type: denies use current occupational status: employed Travel in the last 8 weeks: None Review of Systems Constitutional Constitutional: Denies fatigue and Denies weakness Eyes Eyes: Denies loss of vision ENT Ears, Nose, Mouth, and Throat: Denies hearing loss and Denies vertigo *Cardiovascular Cardiovascular: Denies chest pain, Denies dyspnea and Denies syncope *Respiratory Respiratory: Denies cough and Denies dyspnea *Gastrointestinal Gastrointestinal: Denies change in stool character, Denies nausea and Denies vomiting *Genitourinary Genitourinary: Denies difficulty urinating *Musculoskeletal Musculoskeletal: Denies muscle weakness Integumentary/Breasts Skin/Breast: Denies changing lesions *Neurologic Neurologic: Denies loss of vision, Denies syncope, Denies vertigo and Denies weakness Endocrine Endocrine: Denies fatigue Exam Data for Last 24 hours Vital signs and Labs for Last 24 Hours: Temp Pulse Resp BP Pulse Ox O2 Del Method 98.5 F 93 H 18 118/70 99 Room Air 03/05/23 08:00 03/05/23 08:00 03/05/23 08:00 03/05/23 08:00 03/05/23 08:00 03/05/23 08:00 Laboratory Results - last 24 hr 03/05/23 06:19: WBC 5.0 D, RBC 3.49 L, Hgb 11.4 L D, Hct 33.6 L, MCV 96.3 H, MCH 32.7 H, MCHC 34.0, RDW 13.7, Plt Count 154 D, MPV 8.5, Neut % (Auto) 62.1, Lymph % (Auto) 29.2, [place] % (Auto) 5.6, Eos % (Auto) 3.0, Baso % (Auto) 0.1, Neut # (Auto) 3.1, Lymph # (Auto) 1.5, [place] # (Auto) 0.3, Eos # (Auto) 0.2, Baso # (Auto) 0.0, Sodium 137, Potassium 4.4, Chloride 104, Carbon Dioxide 26, Anion Gap 11.4, BUN 49 H, Creatinine 2.90 H D, Estimated Creat Clear 24, Estimated GFR 21 L, Est GFR ( Amer) 25 L D, Glucose 95, Calcium 8.4, Magnesium 1.4 L, Total Bilirubin 0.6, AST 61 H, ALT 37, Alkaline Phosphatase 82, Total Protein 5.7 L, Albumin 3.3 L D, Globulin 2.4, Albumin/Globulin Ratio 1.4 I & O for Last 24 hours: Intake & Output 03/02/23 03/03/23 03/04/23 03/05/23 23:59 23:59 23:59 23:59 Intake Total 240 / 240 970 / 970 Output Total 200 / 500 400 / 400 Balance 40 / -260 570 / 570 Weight 192 lb 2 oz 200 lb Constitutional Constitutional: no acute distress and cooperative *Routine HEENT Exam Eye: Present PERRL *Routine Respiratory Exam Respiratory: Present CTA bilaterally; Absent accessory muscle use, wheezes or crackles *Routine Cardiovascular Exam Cardiovascular: Present RRR, Normal S1 and Normal S2; Absent murmur, gallop or rubs *Routine Abdominal Exam Abdominal: Present soft; Absent tenderness *Routine Extremities Exam Extremities: Present pulses intact; Absent cyanosis or edema *Routine Skin Exam Skin: Present intact; Absent erythema or wounds *Routine Neurological Exam Neurological: Present alert and oriented X3 Routine Psychiatric Exam Psychiatric: Present cooperative Meds Home Medications and Allergies Home Medications Medication Instructions Recorded Confirmed Type cyanocobalamin (vitamin B-12) 1,000 mcg IM WEEKLY 11/07/22 03/05/23 History 1,000 mcg/mL injection solution nitroglycerin 0.4 mg sublingual 0.4 mg sublingual Q5MINP PRN Chest 11/12/22 03/04/23 Rx tablet (Nitrostat) Pain 30 days #25 tabs empagliflozin 10 mg tablet 10 mg PO DAILY 90 days #90 tabs 12/10/22 03/04/23 Rx (Jardiance) sacubitril 24 mg-valsartan 26 mg 1 tab PO BID 90 days #180 tabs 12/10/22 03/04/23 Rx tablet (Entresto) spironolactone 25 mg tablet 25 mg PO DAILY 90 days #90 tabs 12/10/22 03/04/23 Rx metoprolol succinate 25 mg 12.5 mg PO DAILY 03/04/23 03/04/23 History tablet,extended release 24 hr aspirin 81 mg tablet,delayed 81 mg PO DAILY 03/05/23 03/05/23 History release furosemide 40 mg tablet 40 mg PO DAILY PRN Fluid retention 03/05/23 03/05/23 History loratadine 10 mg tablet 10 mg PO DAILY 03/05/23 03/05/23 History omeprazole 20 mg capsule,delayed 20 mg PO DAILY 03/05/23 03/05/23 History release tamsulosin 0.4 mg capsule 0.4 mg PO HS 01/23/24 01/23/24 History New Prescriptions to Start Prescriptions: Allergies Allergy/AdvReac Type Severity Reaction Status Date / Time Penicillins Allergy Severe stops Verified 03/04/23 14:28 breathing [id number]-[id number]-AcA Reductase AdvReac Nausea Verified 03/05/23 07:41 Inhibitor Assessment and Plan *Assessment and plan (1) ALVARO (acute kidney injury): Status: Acute Category: Medical Code(s): N17.9 - Acute kidney failure, unspecified (2) Iatrogenic hypotension: Status: Acute Category: Medical Code(s): I95.89 - Other hypotension (3) HFrEF (heart failure with reduced ejection fraction): Status: Chronic Category: Medical Code(s): I50.20 - Unspecified systolic (congestive) heart failure (4) Chronic kidney disease, stage 3a: Status: Chronic Category: Medical Code(s): N18.31 - Chronic kidney disease, stage 3a Plan Iatrogenic hypotension -Secondary to guideline directed heart failure medical therapy -Resolved following fluid bolus and holding meds -Continue p.o. hydration at home, will DC Aldactone and Lasix. -Resume Entresto and Jardiance at discharge, will follow-up with BP readings in the office Acute on chronic renal insufficiency -Secondary to hypotension and dehydration from heart failure meds -Plan as outlined above HFrEF, Nonischemic dilated cardiomyopathy -EF 35% -Plans as outlined above -Outpatient follow-up 1 week, he is due for repeat echo, consider ICD Nonobstructive coronary artery disease -per left heart cath 12/03 -Continue aspirin, statin, beta-ayaz Severe Pulmonary Htn - per [facility] 12/03 - former smoker - recommend Pulm workup outpatient - nebs/steroids per primary service 03/05 summary: CV stable for discharge home with plans as outlined above.
--- NOTE | 2023-03-05 12:37 | P.DS_ITS ---
General Admission date:: 03/04/23 Discharge date: 03/05/23 HPI HPI HPI: Mr. Carpenter is an 87-year-old male with significant cardiac history. He presented to cardiology clinic earlier today along with his PCP. He presented for routine follow-up. Weight was noted to be down from previous visits. Since October he has lost approximately 30 pounds due to fluid optimization. He has been having some mild chest discomfort with and without activity, shortness of breath in the shower and when arms are above his head. Complaining of some dizziness and lightheadedness on occasion. Denies any increased swelling in his legs, nausea, vomiting, syncope. Of note was sick a few weeks ago with a significant cough/URI and is just not felt back to his normal self since. During his visit with cardiology, labs were obtained. After discharging from the office his lab results returned showing an ALVARO with creatinine with 7. Baseline creatinine is 1.8-2.2. He has been taking his medications as prescribed. Currently on diuretics and states his urine output has been decreased since his respiratory symptoms over the past few weeks. Denies any fever or productive cough. Cardiology contacted the patient and informed him to come to the hospital for admission for treatment of his ALVARO and weakness. Medicine was consulted for admission and further management. On arrival to the floor, he is stable on room air. Stable to blood in his somewhat soft. Denies any edinson chest pain at this time. No further shortness of breath on exam. Hospital Course Hospital Course Hospital Course: 87-year-old male with history of heart failure, CAD, hypertension, BPH. Presented to his PCP and cardiology offices today for fatigue and routine follow-up. Labs showed ALVARO. Discussed case with cardiology, request admission for fluid hydration, adjustments to medications, and close monitoring. Medicine agreed to admit for further management. On arrival patient is stable on room air with soft blood pressures but no syncope. Responded to gentle hydration. Cardiology consulted. Stable for discharge home. Problems addressed as follows: ALVARO on CKD Fatigue/weakness -Labs obtained prior to admission, concerninig for dehydration. Creatinine 3.7, BUN 59. Treated with LR at 100 cc an hour. Held diuretics. Creatinine improved to 2.7, BUN 49. Stable for discharge home with minor adjustments to medication regimen. Plan for close follow-up with cardiology. Recommend repeat CBC, CMP, magnesium and follow-up.Hold Lasix, spironolactone, Entresto at discharge. Heart failure with reduced ejection fraction CAD Cardiomyopathy Hypertension Hyperlipidemia -Continue aspirin 81 mg daily, metoprolol succinate 12.5 mg daily. Resume jardiance. Cardiology consulted, assisted with care. BPH: Continue tamsulosin 0.4 mg nightly GERD: Continue PPI nightly with pantoprazole formulary conversion Exam Data for Last 24 hours Vital signs and Labs for Last 24 Hours: Temp Pulse Resp BP Pulse Ox O2 Del Method 98.5 F 93 H 18 118/70 99 Room Air 03/05/23 08:00 03/05/23 08:00 03/05/23 08:00 03/05/23 08:00 03/05/23 08:00 03/05/23 08:00 Laboratory Results - last 24 hr 03/05/23 06:19: WBC 5.0 D, RBC 3.49 L, Hgb 11.4 L D, Hct 33.6 L, MCV 96.3 H, MCH 32.7 H, MCHC 34.0, RDW 13.7, Plt Count 154 D, MPV 8.5, Neut % (Auto) 62.1, Lymph % (Auto) 29.2, [place] % (Auto) 5.6, Eos % (Auto) 3.0, Baso % (Auto) 0.1, Neut # (Auto) 3.1, Lymph # (Auto) 1.5, [place] # (Auto) 0.3, Eos # (Auto) 0.2, Baso # (Auto) 0.0, Sodium 137, Potassium 4.4, Chloride 104, Carbon Dioxide 26, Anion Gap 11.4, BUN 49 H, Creatinine 2.90 H D, Estimated Creat Clear 24, Estimated GFR 21 L, Est GFR ( Amer) 25 L D, Glucose 95, Calcium 8.4, Magnesium 1.4 L, Total Bilirubin 0.6, AST 61 H, ALT 37, Alkaline Phosphatase 82, Total Protein 5.7 L, Albumin 3.3 L D, Globulin 2.4, Albumin/Globulin Ratio 1.4 I & O for Last 24 hours: Intake & Output 03/02/23 03/03/23 03/04/23 03/05/23 23:59 23:59 23:59 23:59 Intake Total 240 / 240 970 / 970 Output Total 200 / 500 400 / 400 Balance 40 / -260 570 / 570 Weight 87.146 kg 90.718 kg Constitutional Constitutional: no acute distress and average body habitus *Routine HEENT Exam Head: Present normocephalic Eye: Present EOMI and PERRL ENT: Present mucous membranes moist *Routine Neck Exam Neck: Present supple; Absent lymphadenopathy *Routine Respiratory Exam Respiratory: Present CTA bilaterally; Absent rhonchi *Routine Cardiovascular Exam Cardiovascular: Present RRR *Routine Abdominal Exam Abdominal: Present soft and normoactive bowel sounds; Absent tenderness *Routine Extremities Exam Extremities: Absent cyanosis, clubbing or edema *Routine Skin Exam Skin: Present warm; Absent rash *Routine Neurological Exam Neurological: Present alert, oriented X3 and moving all extremities; Absent altered mental status Results Data Completed and Pending Labs on day of discharge: Labs from last 24 hours 03/05/23 06:19 WBC 5.0 D RBC 3.49 L Hgb 11.4 L D Hct 33.6 L MCV 96.3 H MCH 32.7 H MCHC 34.0 RDW 13.7 Plt Count 154 D MPV 8.5 Neut % (Auto) 62.1 Lymph % (Auto) 29.2 [place] % (Auto) 5.6 Eos % (Auto) 3.0 Baso % (Auto) 0.1 Neut # (Auto) 3.1 Lymph # (Auto) 1.5 [place] # (Auto) 0.3 Eos # (Auto) 0.2 Baso # (Auto) 0.0 Sodium 137 Potassium 4.4 Chloride 104 Carbon Dioxide 26 Anion Gap 11.4 BUN 49 H Creatinine 2.90 H D Estimated Creat Clear 24 Estimated GFR 21 L Est GFR ( Amer) 25 L D Glucose 95 Calcium 8.4 Magnesium 1.4 L Total Bilirubin 0.6 AST 61 H ALT 37 Alkaline Phosphatase 82 Total Protein 5.7 L Albumin 3.3 L D Globulin 2.4 Albumin/Globulin Ratio 1.4 DS: Diagnosis Discharge Diagnosis (1) ALVARO (acute kidney injury): Status: Acute Code(s): N17.9 - Acute kidney failure, unspecified (2) Iatrogenic hypotension: Status: Acute Code(s): I95.89 - Other hypotension (3) HFrEF (heart failure with reduced ejection fraction): Status: Chronic Code(s): I50.20 - Unspecified systolic (congestive) heart failure (4) Chronic kidney disease, stage 3a: Status: Chronic Code(s): N18.31 - Chronic kidney disease, stage 3a Meds Home Medications and Allergies Home Medications Medication Instructions Recorded Confirmed Type cyanocobalamin (vitamin B-12) 1,000 mcg IM WEEKLY 11/07/22 03/05/23 History 1,000 mcg/mL injection solution nitroglycerin 0.4 mg sublingual 0.4 mg sublingual Q5MINP PRN Chest 11/12/22 03/04/23 Rx tablet (Nitrostat) Pain 30 days #25 tabs empagliflozin 10 mg tablet 10 mg PO DAILY 90 days #90 tabs 12/10/22 03/04/23 Rx (Jardiance) sacubitril 24 mg-valsartan 26 mg 1 tab PO BID 90 days #180 tabs 12/10/22 03/04/23 Rx tablet (Entresto) spironolactone 25 mg tablet 25 mg PO DAILY 90 days #90 tabs 12/10/22 03/04/23 Rx metoprolol succinate 25 mg 12.5 mg PO DAILY 03/04/23 03/04/23 History tablet,extended release 24 hr aspirin 81 mg tablet,delayed 81 mg PO DAILY 03/05/23 03/05/23 History release furosemide 40 mg tablet 40 mg PO DAILY PRN Fluid retention 03/05/23 03/05/23 History loratadine 10 mg tablet 10 mg PO DAILY 03/05/23 03/05/23 History omeprazole 20 mg capsule,delayed 20 mg PO DAILY 03/05/23 03/05/23 History release tamsulosin 0.4 mg capsule 0.4 mg PO HS 03/05/23 03/05/23 History New Prescriptions to Start Prescriptions: Allergies Allergy/AdvReac Type Severity Reaction Status Date / Time Penicillins Allergy Severe stops Verified 03/04/23 14:28 breathing Usojrne-SJM-BoH Reductase AdvReac Nausea Verified 03/05/23 07:41 Inhibitor Discharge Plan Disposition Patient Disposition: Home, Self-Care Condition: Fair Follow up Plan Follow up with: Zana Raya MD [Staff Physician] - 03/12/23 11:00 am Prescriptions/Medication Reconciliation: Continued Entresto 24-26 mg tablet 1 tab PO BID 90 Days Qty: 180 1RF Jardiance 10 mg tablet 10 mg PO DAILY 90 Days Qty: 90 1RF cyanocobalamin (vitamin B-12) 1,000 mcg/mL solution 1,000 mcg IM WEEKLY nitroglycerin [Nitrostat] 0.4 mg Tablet, Sublingual 0.4 mg sublingual Q5MINP PRN (Reason: Chest Pain) 30 Days Qty: 25 0RF metoprolol succinate 25 mg tablet extended release 24 hr 12.5 mg PO DAILY aspirin 81 mg tablet,delayed release (DR/EC) 81 mg PO DAILY tamsulosin 0.4 mg capsule 0.4 mg PO HS omeprazole 20 mg capsule,delayed release(DR/EC) 20 mg PO DAILY loratadine 10 mg tablet 10 mg PO DAILY Held spironolactone 25 mg tablet 25 mg PO DAILY 90 Days Qty: 90 1RF Hold Instructions: Pending follow-up with cardiology furosemide 40 mg tablet 40 mg PO DAILY PRN (Reason: Fluid retention ) Hold Instructions: Pending follow-up with cardiology Patient Comments: Take if have weight gain of more than 2 pounds in 24 hours Discontinued Entresto 24-26 mg tablet 0RF Problem Reconciliation Problems Reviewed?: Yes Patient Discharge Instructions ACTIVITY: Continue current activity DIET: continue same diet Patient Instructions: Acute Kidney Injury, DI for Acute Kidney Injury Providers Primary Care Provider: Sim Orourke Admit Provider: Yimi Fleming Attending Provider: Yimi Fleming
--- NOTE | 2023-03-07 15:12 | CARE MANAGER ---
Attempted to contact patient related to hospital discharge x2. Left VM message. FRANK Romero
== END 2023-03-05 14:20 | disposition home or self-care (01) ==
PROVIDERS: Admitting Provider Internal Medicine Adolescent Medicine; PCP Internal Medicine; Visit Provider Internal Medicine Adolescent Medicine
DX: N17.9 Acute kidney failure, unspecified (principal); R53.83 Other fatigue; I25.10 Atherosclerotic heart disease of native coronary artery without angina pectoris; G47.33 Obstructive sleep apnea (adult) (pediatric); E78.2 Mixed hyperlipidemia; I42.9 Cardiomyopathy, unspecified; N40.0 Benign prostatic hyperplasia without lower urinary tract symptoms; N18.31 Chronic kidney disease, stage 3a; I95.89 Other hypotension; I13.0 Hypertensive heart and chronic kidney disease with heart failure and stage 1 through stage 4 chronic kidney disease, or unspecified chronic kidney disease; I27.20 Pulmonary hypertension, unspecified; Z87.891 Personal history of nicotine dependence; I42.0 Dilated cardiomyopathy; I50.32 Chronic diastolic (congestive) heart failure; Z79.899 Other long term (current) drug therapy
CPT/HCPCS: G0379; 36415; 71046; 80048; 80053; 80061; 80076; 83735; 84439; 84443; 85025; G0378; J3475

== ENCOUNTER 2023-03-12 11:24 | Outpatient (CLI) | payer MEDICARE, SELFPAY ==
[2023-03-12 12:14] LABS: Chloride 106 mmol/L (98-107); Potassium 4.3 mmoL/L (3.5-5.1); Sodium 137 mmol/L (136-145)
[2023-03-12 12:16] LABS: Blood Urea Nitrogen 31 mg/dl (9-20); Estimated Glomerular Filt Rate 32 ml/min (>60); GFR (African American) 39 ML/MIN (>60)
[2023-03-12 12:17] LABS: Anion Gap 13.3 mEq/L (5-15); Calcium 9.6 mg/dl (8.4-10.2); Carbon Dioxide 22 mmol/L (22.0-30.0); Glucose 114 mg/dl (74-100)
== END 2023-03-12 23:59 ==
LOC: LAB 11:25
PROVIDERS: PCP Internal Medicine; Visit Provider Physician Assistant
DX: E78.5 Hyperlipidemia, unspecified (principal); G47.33 Obstructive sleep apnea (adult) (pediatric); I25.10 Atherosclerotic heart disease of native coronary artery without angina pectoris; I27.20 Pulmonary hypertension, unspecified; I50.20 Unspecified systolic (congestive) heart failure; N17.9 Acute kidney failure, unspecified; R53.83 Other fatigue; I42.8 Other cardiomyopathies
CPT/HCPCS: 36415; 80048

== ENCOUNTER 2023-03-25 14:31 | Observation (INO) | payer MEDICARE, SELFPAY ==
--- NOTE | 2023-03-25 14:51 | HMH.PHAINT1 ---
Pharmacy Intervention Comments: MEDICATION RECONCILIATION COMPLETED ON PATIENT USING EXTERNAL FILL HISTORY FROM PHARMACY AND LIST FORM CARDIOLOGY OFFICE. -RAMONITA STERLING, ELOYD
--- NOTE | 2023-03-25 14:55 | PC.NURSE ---
PT placed in room 1 in ER, placed on heart monitor, VSS at this time, Blair aware that pt has arrived. House states he will contact to let him know pt has arrived. Awaiting pt to be cleaned upstairs and then pt will be transported to bed.
--- NOTE | 2023-03-25 14:58 | ECG_ITS ---
APPROVED REPORT Exam: Resting ECG HR:96 bpm ECG Measurements Heart Rate 96 AXES ME 180 P 66 QRSd 127 QRS -75 QT 399 T 46 QTc 453 Conclusion SINUS RHYTHM INDETERMINATE AXIS RIGHT BUNDLE BRANCH BLOCK [120+ ms QRS DURATION, UPRIGHT V1, 40+ ms S IN I/aVL/V4/V5/V6] ABNORMAL ECG UNCONFIRMED REPORT Electronically signed by : Rudy Sanchez MD 03/25/2023 17:56:40
[2023-03-25 15:32] LABS: Basophils % 0.2 % (0.1-2.0); Eosinophils # 0.2 K/mm3 (0.0-0.4); Hematocrit 37.2 % (42.0-52.0); Hemoglobin 13.1 g/dL (14.1-18.0); Lymphocytes # 1.2 K/mm3 (0.7-4.5); Mean Corpuscular HGB Conc 35.3 g/dL (31.8-35.4); Mean Corpuscular Hemoglobin 34.4 pg (27.0-31.2); Mean Corpuscular Volume 97.4 fl (80-94); Mean Platelet Volume 8.7 fl (7.4-10.4); Monocytes # 0.4 K/mm3 (0.1-1.0); Monocytes % 5.6 % (1.7-9.3); Neutrophils # 4.7 K/mm3 (1.8-7.8); Neutrophils % 72.2 % (37.0-80.0); Platelet Count 218 K/mm3 (142-424); Red Blood Count 3.82 M/mm3 (4.60-6.20); White Blood Count 6.6 K/mm3 (4.8-10.8)
[2023-03-25 15:46] LABS: Chloride 107 mmol/L (98-107)
[2023-03-25 15:47] LABS: Potassium 3.9 mmoL/L (3.5-5.1); Sodium 138 mmol/L (136-145)
[2023-03-25 15:49] LABS: Alanine Aminotransferase 122 U/L (12-78); Alkaline Phosphatase 179 U/L (38-126); Anion Gap 10.9 mEq/L (5-15); Aspartate Amino Transferase 154 U/L (17-59); Bilirubin,Total 1.1 mg/dl (0.2-1.3); Blood Urea Nitrogen 23 mg/dl (9-20); Carbon Dioxide 24 mmol/L (22.0-30.0); Estimated Glomerular Filt Rate 38 ml/min (>60); GFR (African American) 47 ML/MIN (>60)
[2023-03-25 15:50] VITALS: BMI 23.0
[2023-03-25 15:50] LABS: Albumin Level 3.8 g/dl (3.5-5.0); Albumin/Globulin Ratio 1.3 (1.1-1.8); Calcium 9.1 mg/dl (8.4-10.2); Globulin 2.9 g/dL (1.3-3.2); Glucose 113 mg/dl (74-100); Magnesium 1.4 mg/dl (1.6-2.3); Total Protein,Serum 6.7 g/dl (6.3-8.2)
[2023-03-25 15:59] LABS: Creatinine Clearance Estimated 35 mL/min (50-200)
[2023-03-25 16:00] VITALS: BP 108/60; PULSE 95; RESP 24; TEMP 37; O2SAT 96
[2023-03-25 16:03] LABS: Troponin I 0.05 ng/ml (0.00-0.034)
[2023-03-25 16:33] LABS: Coronavirus 19, PCR Not Detected (NotDetected); Influenza A, PCR Not Detected (NotDetected); Influenza B, PCR Not Detected (NotDetected)
--- NOTE | 2023-03-25 18:01 | P.HP_ITS ---
History of Present Illness *Admission Date: 03/25/23 *Reason for visit:: Weakness *History of present illness: Mr. Carpenter is an 87-year-old male with significant cardiac history. He presented to cardiology clinic earlier today. He presented for routine follow- up. Evaluation in cardiology clinic, patient complains of persistent fatigue. Worse over the past few months. No benefit since last admission. Occasionally lightheaded when he stands. [place] better briefly after decreasing/discontinuing his treatment from before with cessation of his Entresto. Urine output appropriate. Wakes multiple times at night to pee. Has sleep apnea but does not wear his CPAP. Denies any chest pain, nausea, vomiting, confusion. Had a respiratory illness in January. This appears to have resolved. Has not had a cough in several weeks. Discussed case with cardiology, request admission due to persistent fatigue. Would like to do further workup. EKG obtained in cardiology clinic showing concern for possible A-fib. Previously had ALVARO, needs labs to evaluate other disturbances. Medicine agreed to admit to observation for further management and workup. Baseline creatinine is 1.8-2.2. He has been taking his medications as prescribed. Currently on diuretics and states his urine output has been decreased since his respiratory symptoms over the past few weeks. Denies any fever or productive cough. On arrival to the floor, he is stable on room air. Blood pressure within normal range. Heart rate 90-100, regular rhythm. No chest pain or confusion [facility] Disclaimer: The information contained in this section may have been updated after the patient was seen, as this information can be updated by other users. 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 Shortness of Breath Vitamin B12 deficiency Surgical History Normal colonoscopy Family History (Updated 03/25/23 @ 18:09 by Carmen De Jesus RN) Kidney disease Heart disease Hypertension Social History Smoking Status: Former smoker alcohol intake: never substance use type: denies use current occupational status: employed Travel in the last 8 weeks: None Review of Systems Review of Systems Review of systems (narrative): 14 point review of systems performed, pertinent positives and negatives as per HPI Meds Home Medications and Allergies Home Medications Medication Instructions Recorded Confirmed Type cyanocobalamin (vitamin B-12) 1,000 mcg IM WEEKLY 11/07/22 03/25/23 History 1,000 mcg/mL injection solution nitroglycerin 0.4 mg sublingual 0.4 mg sublingual Q5MINP PRN Chest 11/12/22 03/25/23 Rx tablet (Nitrostat) Pain 30 days #25 tabs empagliflozin 10 mg tablet 10 mg PO DAILY 90 days #90 tabs 12/10/22 03/25/23 Rx (Jardiance) metoprolol succinate 25 mg 12.5 mg PO DAILY 03/04/23 03/25/23 History tablet,extended release 24 hr aspirin 81 mg tablet,delayed 81 mg PO DAILY 03/05/23 03/25/23 History release loratadine 10 mg tablet 10 mg PO DAILY 03/05/23 03/25/23 History omeprazole 20 mg capsule,delayed 20 mg PO DAILY 03/05/23 03/25/23 History release tamsulosin 0.4 mg capsule 0.4 mg PO HS 03/05/23 03/25/23 History furosemide 40 mg tablet 40 mg PO DAILYP PRN Swelling 03/25/23 03/25/23 History spironolactone 25 mg tablet 25 mg PO DAILY Fluid 03/25/23 03/25/23 History New Prescriptions to Start Prescriptions: Allergies Allergy/AdvReac Type Severity Reaction Status Date / Time Penicillins Allergy Severe stops Verified 03/25/23 11:05 breathing [id number] Reductase AdvReac Nausea Verified 03/25/23 11:05 Inhibitor Exam Data for Last 24 hours Vital signs and Labs for Last 24 Hours: Temp Pulse Resp BP Pulse Ox O2 Del Method 98.6 F 95 H 24 108/60 L 96 Room Air 03/25/23 16:00 03/25/23 16:00 03/25/23 16:03/25/23 16:03/25/23 16:00 03/25/23 16:00 Laboratory Results - last 24 hr 03/25/23 15:20: WBC 6.6, RBC 3.82 L, Hgb 13.1 L, Hct 37.2 L, MCV 97.4 H, MCH 34.4 H, MCHC 35.3, RDW 14.0, Plt Count 218, MPV 8.7, Neut % (Auto) 72.2, Lymph % (Auto) 19.0, [place] % (Auto) 5.6, Eos % (Auto) 3.0, Baso % (Auto) 0.2, Neut # (Auto) 4.7, Lymph # (Auto) 1.2, [place] # (Auto) 0.4, Eos # (Auto) 0.2, Baso # (Auto) 0.0, Sodium 138, Potassium 3.9, Chloride 107, Carbon Dioxide 24, Anion Gap 10.9, BUN 23 H, Creatinine 1.70 H, Estimated Creat Clear 35, Estimated GFR 38 L, Est GFR ( Amer) 47 L, Glucose 113 H, Calcium 9.1, Magnesium 1.4 L, Total Bilirubin 1.1, AST 154 H, ALT 122 H, Alkaline Phosphatase 179 H, Troponin I 0.05 H, Total Protein 6.7, Albumin 3.8, Globulin 2.9, Albumin/Globulin Ratio 1.3 03/25/23 16:08: SARS-CoV-2 (PCR) Not detected, Influenza A Untype (PCR) Not detected, Influenza Type B (PCR) Not detected I & O for Last 24 hours: Intake & Output 03/22/23 03/23/23 03/24/23 03/25/23 23:59 23:59 23:59 23:59 Intake Total 0 / 0 Output Total 0 / 0 Balance 0 / 0 Weight 77.111 kg Constitutional Constitutional: no acute distress, obese and cooperative *Routine HEENT Exam Head: Present normocephalic Eye: Present EOMI and PERRL ENT: Present mucous membranes moist *Routine Neck Exam Neck: Present supple and trachea midline; Absent JVD or lymphadenopathy *Routine Respiratory Exam Respiratory: Present normal respiratory effort and symmetric chest movement; Absent rhonchi, wheezes or crackles *Routine Cardiovascular Exam Cardiovascular: Present RRR, Normal S1 and Normal S2; Absent murmur *Routine Abdominal Exam Abdominal: Present soft and normoactive bowel sounds; Absent tenderness *Routine Rectal Exam Rectal:: deferred *Routine Genitalia Exam Genitalia:: deferred *Routine Extremities Exam Extremities: Present full ROM, pulses intact and normal capillary refill; Absent cyanosis, clubbing or edema *Routine Skin Exam Skin: Present warm; Absent rash *Routine Neurological Exam Neurological: Present alert, oriented X3, moving all extremities and normal speech; Absent sensory deficit or motor deficit Routine Psychiatric Exam Psychiatric: Present normal affect, normal thought process, cooperative, good insight and good judgment Assessment and Plan *Assessment and plan (1) Fatigue: Status: Acute Qualifiers: Fatigue type: unspecified Qualified Code(s): R53.83 - Other fatigue Category: Medical Code(s): R53.83 - Other fatigue (2) HFrEF (heart failure with reduced ejection fraction): Status: Chronic Category: Medical Code(s): I50.20 - Unspecified systolic (congestive) heart failure (3) Coronary artery disease: Status: Chronic Qualifiers: Associated angina: without angina Coronary Disease-Associated Artery/Lesion type: [place] artery [place] vs. transplanted heart: [place] heart Qualified Code(s): I25.10 - Atherosclerotic heart disease of [place] coronary artery without angina pectoris Category: Medical Code(s): I25.10 - Atherosclerotic heart disease of [place] coronary artery without angina pectoris (4) PRISCILA (obstructive sleep apnea): Problem Comment: Patient refuses to use the CPAP. Status: Chronic Category: Medical Code(s): G47.33 - Obstructive sleep apnea (adult) (pediatric) (5) Hyperlipidemia: Status: Chronic Qualifiers: Hyperlipidemia type: mixed hyperlipidemia Qualified Code(s): E78.2 - Mixed hyperlipidemia Category: Medical Code(s): E78.5 - Hyperlipidemia, unspecified (6) Cardiomyopathy: Status: Chronic Qualifiers: Cardiomyopathy type: unspecified Qualified Code(s): I42.9 - Cardiomyo jose, unspecified Category: Medical Code(s): I42.9 - Cardiomyopathy, unspecified (7) BPH (benign prostatic hyperplasia): Status: Chronic Category: Medical Code(s): N40.0 - Benign prostatic hyperplasia without lower urinary tract symptoms (8) Chronic kidney disease, stage 3a: Status: Chronic Category: Medical Code(s): N18.31 - Chronic kidney disease, stage 3a Plan 87-year-old male with history of heart failure, CAD, hypertension, BPH. Presented to his Cardiology offices today for fatigue and routine follow-up. Given fatigue, EKG was obtained showing concern for possible A-fib. Cardiology contacted medicine, requested admission for workup of fatigue, possible ALVARO, A- fib, medication adjustments. Medicine agreed to admit for further management. On arrival patient is stable on room air with soft blood pressures but no syncope. Problems addressed as follows: CKD Fatigue/weakness Hypomagnesemia -Labs obtained on admission, creatinine at baseline at 1.7. BUN 23. Potassium normal at 3.9. Magnesium low at 1.4 - No significant signs of anemia hemoglobin of 13.1, no signs of infection with white cell count of 6.6. - repeat CBC, CMP, magnesium ordered for the morning. -No indication for IV hydration. -Heart rate elevated at 100, will increase metoprolol to 25 mg daily Heart failure with reduced ejection fraction CAD Cardiomyopathy Hypertension Hyperlipidemia -Continue aspirin 81 mg daily, metoprolol succinate increased to 25 mg daily, spironolactone, Lasix, Jardiance. -Cardiology consulted, appreciate their recommendations. -EKG obtained showing normal sinus rhythm with right bundle branch block. BPH: Continue tamsulosin 0.4 mg nightly; initiate finasteride GERD: Continue PPI nightly with pantoprazole formulary conversion PRISCILA: History of sleep apnea, has a CPAP at home. Does not wear it. 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 Strong concern that untreated sleep apnea underlies his fatigue. He also wakes multiple times at night to urinate. Recommended he wear his CPAP to see if this helps when he gets home. Patient states he will try Full code cardiac diet Heparin 5000 units twice daily
[2023-03-25] MEDS: MAGNESIUM SULFATE IN WATER 2 GM/50 ML PIGGYBACK IV (18:45)
[2023-03-25 20:00] VITALS: BP 148/77; PULSE 88; PULSE 95; RESP 17; TEMP 36.9; O2SAT 96
[2023-03-25] MEDS: TAMSULOSIN 0.4MG CAPSULE 0.400000000000000022 MG PO (21:06)
[2023-03-25] MEDS: HEPARIN SODIUM 5,000 UNIT/ML VIAL 5000 UNIT SQ (21:07)
[2023-03-25] MEDS: PANTOPRAZOLE 40MG TABLET 40 MG PO (21:07)
[2023-03-26] VITALS: BP 133/75; PULSE 80; PULSE 82; RESP 17; TEMP 36.9; O2SAT 94
[2023-03-26 04:00] VITALS: BP 117/68; PULSE 73; PULSE 80; RESP 17; TEMP 36.9; O2SAT 93; BMI 23.0
--- NOTE | 2023-03-26 04:41 | PC.NURSE ---
Pt has rested well through the night with no complaints. Pt uses urinal. Lung sounds clear, remains room air. Pt did state he has mild tenderness in his upper abdomen and states all MDs are aware, he states it does not hurt, just a little tender. Bowel sounds active. No edema noted. VSS, Call light in reach.
[2023-03-26 07:57] VITALS: BP 129/80; PULSE 86; RESP 18; TEMP 36.7; O2SAT 99
[2023-03-26 08:00] VITALS: PULSE 83
--- NOTE | 2023-03-26 08:10 | P.DS_ITS ---
General Admission date:: 03/25/23 Discharge date: 03/26/23 HPI HPI HPI: Mr. Carpenter is an 87-year-old male with significant cardiac history. He presented to cardiology clinic earlier today. He presented for routine follow- up. Evaluation in cardiology clinic, patient complains of persistent fatigue. Worse over the past few months. No benefit since last admission. Occasionally lightheaded when he stands. [place] better briefly after decreasing/discontinuing his treatment from before with cessation of his Entresto. Urine output appropriate. Wakes multiple times at night to pee. Has sleep apnea but does not wear his CPAP. Denies any chest pain, nausea, vomiting, confusion. Had a respiratory illness in January. This appears to have resolved. Has not had a cough in several weeks. Discussed case with cardiology, request admission due to persistent fatigue. Would like to do further workup. EKG obtained in cardiology clinic showing concern for possible A-fib. Previously had ALVARO, needs labs to evaluate other disturbances. Medicine agreed to admit to observation for further management and workup. Baseline creatinine is 1.8-2.2. He has been taking his medications as prescribed. Currently on diuretics and states his urine output has been decreased since his respiratory symptoms over the past few weeks. Denies any fever or productive cough. On arrival to the floor, he is stable on room air. Blood pressure within normal range. Heart rate 90-100, regular rhythm. No chest pain or confusion Hospital Course Hospital Course Hospital Course: 87-year-old male with history of heart failure, CAD, hypertension, BPH. Presented to his Cardiology offices today for fatigue and routine follow-up. Given fatigue, EKG was obtained showing concern for possible A-fib. Cardiology contacted medicine, requested admission for workup of fatigue, possible ALVARO, A- fib, medication adjustments. Medicine agreed to admit for further management. On arrival patient is stable on room air with soft blood pressures but no syncope. Patient did well. Evaluation relatively unremarkable. Found to have sinus tachycardia. Metoprolol increased but stable for discharge home. Close follow-up with cardiology for further management. Problems addressed as follows: CKD Fatigue/weakness Hypomagnesemia -Initial presentation, patient's creatinine was at baseline at 1.7. Stable on morning of discharge. Electrolytes relatively well-controlled aside from low magnesium. This was supplemented. Found to be tachycardic with sinus tach on EKG. Metoprolol increased to 50 mg daily. No significant anemia, hemoglobin 13. Tolerating p.o. intake. No indication for IV fluid rehydration. Discussion about patient's sleep habits, he has sleep apnea but does not wear his CPAP. Also wakes multiple times at night to urinate. Encouraged him strongly to initiate his CPAP as this likely will help him sleep better and give him restorative sleep and help with his fatigue. Also made adjustments below to BPH regimen to see if this is of benefit to his frequent nocturia. Heart failure with reduced ejection fraction CAD Cardiomyopathy Hypertension Hyperlipidemia -Continue aspirin 81 mg daily, metoprolol succinate increased to 50 mg daily; continued his spironolactone, Lasix, Jardiance. Cardiology consulted. No other changes to regimen at this time. Will follow-up in the clinic in 1 to 2 weeks. As he did not have overt signs of A-fib during hospitalization, will initiate on event monitor. Will consider anticoagulation follow-up if does show signs of paroxysmal A-fib. No indication at this time however. BPH: Continue tamsulosin 0.4 mg nightly; in light of reported frequent nocturia, initiated on finasteride. GERD: Continue PPI PRISCILA: History of sleep apnea, has a CPAP at home. Does not wear it. 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 Strong concern that untreated sleep a pnea underlies his fatigue. Recommended he wear his CPAP to see if this helps when he gets home. Patient states he will try Exam Data for Last 24 hours Vital signs and Labs for Last 24 Hours: Temp Pulse Resp BP Pulse Ox O2 Del Method 98.0 F 86 18 129/80 99 Room Air 03/26/23 07:57 03/26/23 07:57 03/26/23 07:57 03/26/23 07:57 03/26/23 07:57 03/26/23 07:57 Laboratory Results - last 24 hr 03/25/23 15:20: WBC 6.6, RBC 3.82 L, Hgb 13.1 L, Hct 37.2 L, MCV 97.4 H, MCH 34.4 H, MCHC 35.3, RDW 14.0, Plt Count 218, MPV 8.7, Neut % (Auto) 72.2, Lymph % (Auto) 19.0, [place] % (Auto) 5.6, Eos % (Auto) 3.0, Baso % (Auto) 0.2, Neut # (Auto) 4.7, Lymph # (Auto) 1.2, [place] # (Auto) 0.4, Eos # (Auto) 0.2, Baso # (Auto) 0.0, Sodium 138, Potassium 3.9, Chloride 107, Carbon Dioxide 24, Anion Gap 10.9, BUN 23 H, Creatinine 1.70 H, Estimated Creat Clear 35, Estimated GFR 38 L, Est GFR ( Amer) 47 L, Glucose 113 H, Calcium 9.1, Magnesium 1.4 L, Total Bilirubin 1.1, AST 154 H, ALT 122 H, Alkaline Phosphatase 179 H, Troponin I 0.05 H, Total Protein 6.7, Albumin 3.8, Globulin 2.9, Albumin/Globulin Ratio 1.3 03/25/23 16:08: SARS-CoV-2 (PCR) Not detected, Influenza A Untype (PCR) Not detected, Influenza Type B (PCR) Not detected I & O for Last 24 hours: Intake & Output 03/23/23 03/24/23 03/25/23 03/26/23 23:59 23:59 23:59 23:59 Intake Total 270 / 320 50 / 50 Output Total 100 / 100 700 / 700 Balance 170 / 220 -650 / -650 Weight 77.111 kg 77.112 kg Constitutional Constitutional: no acute distress and average body habitus *Routine HEENT Exam Head: Present normocephalic Eye: Present EOMI and PERRL ENT: Present mucous membranes moist *Routine Neck Exam Neck: Present supple; Absent lymphadenopathy *Routine Respiratory Exam Respiratory: Present CTA bilaterally; Absent rhonchi *Routine Cardiovascular Exam Cardiovascular: Present RRR *Routine Abdominal Exam Abdominal: Present soft and normoactive bowel sounds; Absent tenderness *Routine Rectal Exam Patient deferred: visual exam *Routine Exam Patient deferred: penile exam *Routine Extremities Exam Extremities: Absent cyanosis, clubbing or edema *Routine Skin Exam Skin: Present warm; Absent rash *Routine Neurological Exam Neurological: Present alert, oriented X3 and moving all extremities; Absent altered mental status Results Data Completed and Pending Labs on day of discharge: Labs from last 24 hours 03/25/23 03/25/23 16:08 15:20 WBC 6.6 RBC 3.82 L Hgb 13.1 L Hct 37.2 L MCV 97.4 H MCH 34.4 H MCHC 35.3 RDW 14.0 Plt Count 218 MPV 8.7 Neut % (Auto) 72.2 Lymph % (Auto) 19.0 [place] % (Auto) 5.6 Eos % (Auto) 3.0 Baso % (Auto) 0.2 Neut # (Auto) 4.7 Lymph # (Auto) 1.2 [place] # (Auto) 0.4 Eos # (Auto) 0.2 Baso # (Auto) 0.0 Sodium 138 Potassium 3.9 Chloride 107 Carbon Dioxide 24 Anion Gap 10.9 BUN 23 H Creatinine 1.70 H Estimated Creat Clear 35 Estimated GFR 38 L Est GFR ( Amer) 47 L Glucose 113 H Calcium 9.1 Magnesium 1.4 L Total Bilirubin 1.1 AST 154 H ALT 122 H Alkaline Phosphatase 179 H Troponin I 0.05 H Total Protein 6.7 Albumin 3.8 Globulin 2.9 Albumin/Globulin Ratio 1.3 SARS-CoV-2 (PCR) Not detected Influenza A Untype (PCR) Not detected Influenza Type B (PCR) Not detected DS: Diagnosis Discharge Diagnosis (1) Fatigue: Status: Acute Code(s): R53.83 - Other fatigue Qualifiers: Fatigue type: unspecified Qualified Code(s): R53.83 - Other fatigue (2) HFrEF (heart failure with reduced ejection fraction): Status: Chronic Code(s): I50.20 - Unspecified systolic (congestive) heart failure (3) Coronary artery disease: Status: Chronic Code(s): I25.10 - Atherosclerotic heart disease of [place] coronary artery without angina pectoris Qualifiers: Associated angina: without angina Coronary Disease-Associated Artery/Lesion type: [place] artery [place] vs. transplanted heart: [place] heart Qualified Code(s): I25.10 - Atherosclerotic heart disease of [place] coronary artery without angina pectoris (4) PRISCILA (obstructive sleep apnea): Status: Chronic Code(s): G47.33 - Obstructive sleep apnea (adult) (pediatric) Problem details: Patient refuses to use the CPAP. (5) Hyperlipidemia: Status: Chronic Code(s): E78.5 - Hyperlipidemia, unspecified Qualifiers: Hyperlipidemia type: mixed hyperlipidemia Qualified Code(s): E78.2 - Mixed hyperlipidemia (6) Cardiomyopathy: Status: Chronic Code(s): I42.9 - Cardiomyopathy, unspecified Qualifiers: Cardiomyopathy type: unspecified Qualified Code(s): I42.9 - Cardiomyopathy, unspecified (7) BPH (benign prostatic hyperplasia): Status: Chronic Code(s): N40.0 - Benign prostatic hyperplasia without lower urinary tract symptoms (8) Chronic kidney disease, stage 3a: Status: Chronic Code(s): N18.31 - Chronic kidney disease, stage 3a Meds Home Medications and Allergies Home Medications Medication Instructions Recorded Confirmed Type cyanocobalamin (vitamin B-12) 1,000 mcg IM WEEKLY 11/07/22 03/25/23 History 1,000 mcg/mL injection solution nitroglycerin 0.4 mg sublingual 0.4 mg sublingual Q5MINP PRN Chest 11/12/22 03/25/23 Rx tablet (Nitrostat) Pain 30 days #25 tabs empagliflozin 10 mg tablet 10 mg PO DAILY 90 days #90 tabs 12/10/22 03/25/23 Rx (Jardiance) aspirin 81 mg tablet,delayed 81 mg PO DAILY 03/05/23 03/25/23 History release loratadine 10 mg tablet 10 mg PO DAILY 03/05/23 03/25/23 History omeprazole 20 mg capsule,delayed 20 mg PO DAILY 03/05/23 03/25/23 History release tamsulosin 0.4 mg capsule 0.4 mg PO HS 03/05/23 03/25/23 History furosemide 40 mg tablet 40 mg PO DAILYP PRN Swelling 03/25/23 03/25/23 History spironolactone 25 mg tablet 25 mg PO DAILY Fluid 03/25/23 03/25/23 History finasteride 5 mg tablet 5 mg PO HS 30 days #30 tabs 03/26/23 Rx magnesium oxide 400 mg (241.3 mg 400 mg PO DAILY 30 days #30 tabs 03/26/23 Rx magnesium) tablet metoprolol succinate 50 mg 50 mg PO DAILY 30 days #30 tabs 03/26/23 Rx tablet,extended release 24 hr (Toprol XL) New Prescriptions to Start Prescriptions: finasteride Yimi Fleming magnesium oxide Yimi Fleming metoprolol succinate [Toprol XL] Yimi Fleming Allergies Allergy/AdvReac Type Severity Reaction Status Date / Time Penicillins Allergy Severe stops Verified 03/25/23 11:05 breathing [id number] Reductase AdvReac Nausea Verified 03/25/23 11:05 Inhibitor Discharge Plan Disposition Patient Disposition: Home, Self-Care Condition: Good Follow up Plan Follow up with: Sim Orourke DO [Primary Care Provider] - 04/04/23 11:30 am Zana Raya MD [Staff Physician] - 04/04/23 10:45 am Prescriptions/Medication Reconciliation: New magnesium oxide 400 mg (241.3 mg magnesium) Tablet 400 mg PO DAILY 30 Days Qty: 30 0RF finasteride 5 mg Tablet 5 mg PO HS 30 Days Qty: 30 0RF metoprolol succinate [Toprol XL] 50 mg Tablet Extended Release 24 Hr 50 mg PO DAILY 30 Days Qty: 30 0RF Continued Jardiance 10 mg tablet 10 mg PO DAILY 90 Days Qty: 90 1RF cyanocobalamin (vitamin B-12) 1,000 mcg/mL solution 1,000 mcg IM WEEKLY nitroglycerin [Nitrostat] 0.4 mg Tablet, Sublingual 0.4 mg sublingual Q5MINP PRN (Reason: Chest Pain) 30 Days Qty: 25 0RF aspirin 81 mg tablet,delayed release (DR/EC) 81 mg PO DAILY tamsulosin 0.4 mg capsule 0.4 mg PO HS omeprazole 20 mg capsule,delayed release(DR/EC) 20 mg PO DAILY loratadine 10 mg tablet 10 mg PO DAILY furosemide 40 mg tablet 40 mg PO DAILYP PRN (Reason: Swelling) Patient Comments: TAKE 1 TABLET BY MOUTH ONCE DAILY -TAKE IF HAVE A WEIGHT GAIN OF >2LBS IN 24 HOURS spironolactone 25 mg tablet 25 mg PO DAILY Patient Comments: TAKE 1 TABLET BY MOUTH ONCE DAILY Discontinued metoprolol succinate 25 mg tablet extended release 24 hr 12.5 mg PO DAILY Problem Reconciliation Problems Reviewed?: Yes Patient Discharge Instructions ACTIVITY: Continue current activity DIET: continue same diet Patient Instructions: DI for Atrial Fibrillation Providers Primary Care Provider: Sim Orourke Admit Provider: Yimi Fleming Attending Provider: Yimi Fleming
[2023-03-26 08:41] LABS: Chloride 109 mmol/L (98-107); Sodium 138 mmol/L (136-145)
[2023-03-26 08:42] LABS: Hematocrit 34.8 % (42.0-52.0); Hemoglobin 11.8 g/dL (14.1-18.0)
[2023-03-26 08:44] LABS: Alanine Aminotransferase 122 U/L (12-78); Albumin Level 3.4 g/dl (3.5-5.0); Albumin/Globulin Ratio 1.3 (1.1-1.8); Alkaline Phosphatase 177 U/L (38-126); Aspartate Amino Transferase 144 U/L (17-59); Bilirubin,Total 1.3 mg/dl (0.2-1.3); Blood Urea Nitrogen 19 mg/dl (9-20); Calcium 9.1 mg/dl (8.4-10.2); Carbon Dioxide 25 mmol/L (22.0-30.0); Creatinine Clearance Estimated 37 mL/min (50-200); Estimated Glomerular Filt Rate 41 ml/min (>60); GFR (African American) 50 ML/MIN (>60); Globulin 2.7 g/dL (1.3-3.2); Glucose 97 mg/dl (74-100); Total Protein,Serum 6.1 g/dl (6.3-8.2)
[2023-03-26] MEDS: HEPARIN SODIUM 5,000 UNIT/ML VIAL 5000 UNIT SQ (08:56)
[2023-03-26] MEDS: FUROSEMIDE 40 MG TABLET PO (08:56)
[2023-03-26] MEDS: MAGNESIUM OXIDE 400MG TABLET 400 MG PO (08:56)
[2023-03-26] MEDS: SPIRONOLACTONE 25MG TABLET 25 MG PO (08:56)
[2023-03-26] MEDS: ASPIRIN EC 81MG TABLET 81 MG PO (08:56)
[2023-03-26] MEDS: EMPAGLIFLOZIN 10MG TABLET 10 MG PO (08:56)
[2023-03-26] MEDS: METOPROLOL SUCCINATE XL 25MG TABLET 25 MG PO (08:56)
[2023-03-26 09:09] VITALS: BP 149/84; PULSE 86; RESP 17; O2SAT 99
--- NOTE | 2023-03-26 09:19 | ECG_ITS ---
APPROVED REPORT Exam: Resting ECG HR:79 bpm ECG Measurements Heart Rate 79 AXES TN 187 P 53 QRSd 128 QRS -59 QT 418 T 24 QTc 453 Conclusion SINUS RHYTHM LEFT AXIS DEVIATION [QRS AXIS < -30] RIGHT BUNDLE BRANCH BLOCK [120+ ms QRS DURATION, UPRIGHT V1, 40+ ms S IN I/aVL/V4/V5/V6] ABNORMAL ECG UNCONFIRMED REPORT Electronically signed by : Rudy Sanchez MD 03/26/2023 21:54:13
[2023-03-26 09:33] LABS: Magnesium 1.7 mg/dl (1.6-2.3)
--- NOTE | 2023-03-26 09:48 | EXP.CARD.CON ---
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 Patient reports persistent fatigue over the past few months with occasional lightheadedness when he stands up. Reports history of hypotension for which Entresto is currently being held for. Patient reports he has a history of obstructive sleep apnea but does not wear CPAP machine at night. Reports urinating a lot throughout the evening secondary to BPH which keeps him awake most nights. Patient denies chest pain, nausea, vomiting or shortness of breath. EKG reviewed from cardiology clinic shows sinus tachycardia at a rate of 110 with a right bundle branch block. Patient has been in normal sinus rhythm since admission to the hospital. Labs on admission showed a creatinine of 1.7 (baseline 2-3) and a magnesium of 1.4. Blood pressure on admission was 120/68. Systolic BP has remained > 108 since admisison. Magnesium was replaced over the evening. This morning patient is resting comfortably in bed and reports is feeling better. Patient was able to ambulate around nurses station without symptoms of dizziness or hypotension. A repeat EKG was performed this morning which shows normal sinus rhythm at a rate of 79 with a right bundle branch block. Patient denies a history of A-fib. [facility] Disclaimer: The information contained in this section may have been updated after the patient was seen, as this information can be updated by other users. 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 Shortness of Breath Vitamin B12 deficiency Surgical History Normal colonoscopy Family History (Updated 03/25/23 @ 18:09 by Carmen De Jesus, RN) Other Heart disease Hypertension Kidney disease Social History (Updated 03/25/23 @ 18:09 by Carmen De Jesus, RN) Smoking Status: Former smoker alcohol intake: never substance use type: denies use current occupational status: employed Travel in the last 8 weeks: None Review of Systems Review of Systems Review of systems:: pertinent systems reviewed and negative unless documented below Constitutional Constitutional: Reports fatigue Endocrine Endocrine: Reports fatigue Exam Data for Last 24 hours Vital signs and Labs for Last 24 Hours: Temp Pulse Resp BP Pulse Ox O2 Del Method 98.0 F 86 17 149/84 H 99 Room Air 03/26/23 07:57 03/26/23 09:09 03/26/23 09:09 03/26/23 09:09 03/26/23 09:09 03/26/23 09:09 Laboratory Results - last 24 hr 03/25/23 15:20: WBC 6.6, RBC 3.82 L, Hgb 13.1 L, Hct 37.2 L, MCV 97.4 H, MCH 34.4 H, MCHC 35.3, RDW 14.0, Plt Count 218, MPV 8.7, Neut % (Auto) 72.2, Lymph % (Auto) 19.0, [place] % (Auto) 5.6, Eos % (Auto) 3.0, Baso % (Auto) 0.2, Neut # (Auto) 4.7, Lymph # (Auto) 1.2, [place] # (Auto) 0.4, Eos # (Auto) 0.2, Baso # (Auto) 0.0, Sodium 138, Potassium 3.9, Chloride 107, Carbon Dioxide 24, Anion Gap 10.9, BUN 23 H, Creatinine 1.70 H, Estimated Creat Clear 35, Estimated GFR 38 L, Est GFR ( Amer) 47 L, Glucose 113 H, Calcium 9.1, Magnesium 1.4 L, Total Bilirubin 1.1, AST 154 H, ALT 122 H, Alkaline Phosphatase 179 H, Troponin I 0.05 H, Total Protein 6.7, Albumin 3.8, Globulin 2.9, Albumin/Globulin Ratio 1.3 03/25/23 16:08: SARS-CoV-2 (PCR) Not detected, Influenza A Untype (PCR) Not detected, Influenza Type B (PCR) Not detected 03/26/23 08:25: Hgb 11.8 L, Hct 34.8 L, Sodium 138, Potassium 4.0, Chloride 109 H, Carbon Dioxide 25, Anion Gap 8.0, BUN 19, Creatinine 1.60 H, Estimated Creat Clear 37, Estimated GFR 41 L, Est GFR ( Amer) 50 L, Glucose 97, Calcium 9.1, Magnesium 1.7 D, Total Bilirubin 1.3, AST 144 H, ALT 122 H, Alkaline Phosphatase 177 H, Total Protein 6.1 L, Albumin 3.4 L D, Globulin 2.7, Albumin/Globulin Ratio 1.3 I & O for Last 24 hours: Intake & Output 03/23/23 03/24/23 03/25/23 03/26/23 23:59 23:59 23:59 23:59 Intake Total 270 / 320 50 / 50 Output Total 100 / 100 700 / 700 Balance 170 / 220 -650 / -650 Weight 170 lb 170 lb 0.046 oz Constitutional Constitutional: no acute distress *Routine Respiratory Exam Respiratory: Present CTA bilaterally and symmetric chest movement *Routine Cardiovascular Exam Cardiovascular: Present RRR, Normal S1 and Normal S2 *Routine Abdominal Exam Abdominal: Present soft and normoactive bowel sounds; Absent tenderness *Routine Extremities Exam Extremities: Present full ROM and normal capillary refill; Absent edema *Routine Skin Exam Skin: Present intact, dry and warm Detailed Neck Exam: Thyroids Thyroid: Absent bruit Meds Home Medications and Allergies Home Medications Medication Instructions Recorded Confirmed Type cyanocobalamin (vitamin B-12) 1,000 mcg IM WEEKLY 11/07/22 03/25/23 History 1,000 mcg/mL injection solution nitroglycerin 0.4 mg sublingual 0.4 mg sublingual Q5MINP PRN Chest 11/12/22 03/25/23 Rx tablet (Nitrostat) Pain 30 days #25 tabs empagliflozin 10 mg tablet 10 mg PO DAILY 90 days #90 tabs 12/10/22 03/25/23 Rx (Jardiance) metoprolol succinate 25 mg 12.5 mg PO DAILY 03/04/23 03/25/23 History tablet,extended release 24 hr aspirin 81 mg tablet,delayed 81 mg PO DAILY 03/05/23 03/25/23 History release loratadine 10 mg tablet 10 mg PO DAILY 03/05/23 03/25/23 History omeprazole 20 mg capsule,delayed 20 mg PO DAILY 03/05/23 03/25/23 History release tamsulosin 0.4 mg capsule 0.4 mg PO HS 03/05/23 03/25/23 History furosemide 40 mg tablet 40 mg PO DAILYP PRN Swelling 03/25/23 03/25/23 History spironolactone 25 mg tablet 25 mg PO DAILY Fluid 03/25/23 03/25/23 History finasteride 5 mg tablet 5 mg PO HS 30 days #30 tabs 03/26/23 Rx magnesium oxide 400 mg (241.3 mg 400 mg PO DAILY 30 days #30 tabs 03/26/23 Rx magnesium) tablet New Prescriptions to Start Prescriptions: finasteride Yimi Fleming magnesium oxide Yimi Fleming Allergies Allergy/AdvReac Type Severity Reaction Status Date / Time Penicillins Allergy Severe stops Verified 03/25/23 11:05 breathing [id number] Reductase AdvReac Nausea Verified 03/25/23 11:05 Inhibitor Assessment and Plan *Assessment and plan (1) Iatrogenic hypotension: Status: Acute Category: Medical Code(s): I95.89 - Other hypotension (2) Chronic kidney disease, stage 3a: Status: Chronic Category: Medical Code(s): N18.31 - Chronic kidney disease, stage 3a (3) Fatigue: Status: Acute Qualifiers: Fatigue type: unspecified Qualified Code(s): R53.83 - Other fatigue Category: Medical Code(s): R53.83 - Other fatigue (4) HFrEF (heart failure with reduced ejection fraction): Status: Chronic Category: Medical Code(s): I50.20 - Unspecified systolic (congestive) heart failure (5) PRISCILA (obstructive sleep apnea): Problem Comment: Patient refuses to use the CPAP. Status: Chronic Category: Medical Code(s): G47.33 - Obstructive sleep apnea (adult) (pediatric) (6) Hyperlipidemia: Status: Chronic Qualifiers: Hyperlipidemia type: mixed hyperlipidemia Qualified Code(s): E78.2 - Mixed hyperlipidemia Category: Medical Code(s): E78.5 - Hyperlipidemia, unspecified (7) BPH (benign prostatic hyperplasia): Status: Chronic Category: Medical Code(s): N40.0 - Benign prostatic hyperplasia without lower urinary tract symptoms (8) Coronary artery disease: Status: Chronic Qualifiers: Coronary Disease-Associated Artery/Lesion type: [place] artery [place] vs. transplanted heart: [place] heart Associated angina: without angina Qualified Code(s): I25.10 - Atherosclerotic heart disease of [place] coronary artery without angina pectoris Category: Medical Code(s): I25.10 - Atherosclerotic heart disease of [place] coronary artery without angina pectoris (9) Pulmonary hypertension: Status: Acute Category: Medical Code(s): I27.20 - Pulmonary hypertension, unspecified (10) Sinus tachycardia: Status: Acute Category: Medical Code(s): R00.0 - Tachycardia, unspecified Plan Sinus tachycardia-Resloved Questionable A-fib -Patient denies history of A-fib -All EKGs from this admission have been reviewed and show normal sinus rhythm with a right bundle branch block. -Patient was on metoprolol succinate 12.5 mg daily, hospitalist doubled dose. -Per Dr. Raya, he would like patient to go home on metoprolol succinate 50 mg daily for rate control. -Recommend DC patient home with a 2-week event monitor -Will not start patient on OAC at this time as no A-fib has been detected. Fatigue Obstructive sleep apnea/medical noncompliance History of BPH with frequent urination throughout the evening -Likely multifactorial in nature. Patient reports he is up most nights urinating a lot secondary to his BPH and does not wear CPAP machine for treatment of obstructive sleep apnea. -Patient encouraged to wear his CPAP machine for PRISCILA. Primary service has adjusted medications for BPH. History of iatrogenic hypotension -BP has been good on this hospital admission. Will continue to hold Entresto and diuretics History of HFrEF Nonischemic dilated cardiomyopathy -Ejection fraction 45% -Currently holding Entresto, Aldactone, Lasix due to hypotension and weakness. -Continue Jardiance 10 mg p.o. daily -No signs of volume overload noted Nonobstructive coronary artery disease -Per left heart cath 11/2022 -Continue aspirin, statin, beta-ayaz Chronic renal insufficiency -Creatinine 1.6 today, baseline 2-3 CV summary 03/26/2023: Patient is CV stable for discharge home. Please send patient home with increased dose of metoprolol succinate to 50 mg [address] daily per Dr. Raya request. Patient to be discharged home to 2-week event monitor to further evaluate for questionable A-fib. Continue below listed cardiac meds and have patient follow-up in cardiology clinic in 1 week for reevaluation. Cardiac meds Aspirin 81 mg daily Metoprolol succinate 50 mg p.o. daily Jardiance 10 mg p.o. daily
--- NOTE | 2023-03-28 15:21 | CARE MANAGER ---
CM called and spoke with patient regarding recent discharge. Patient aware of scheduled f/u appts, and has started new medication. States he is wearing his heart monitoring. No concerns voiced at time of call.
== END 2023-03-26 13:26 | disposition home or self-care (01) ==
LOC: 2ND 14:38 → ICU 14:53
PROVIDERS: Admitting Provider Internal Medicine Adolescent Medicine; PCP Internal Medicine; Visit Provider Internal Medicine Adolescent Medicine
DX: R53.83 Other fatigue (principal); I50.20 Unspecified systolic (congestive) heart failure; I25.10 Atherosclerotic heart disease of native coronary artery without angina pectoris; G47.33 Obstructive sleep apnea (adult) (pediatric); E78.2 Mixed hyperlipidemia; I42.9 Cardiomyopathy, unspecified; N40.0 Benign prostatic hyperplasia without lower urinary tract symptoms; N18.31 Chronic kidney disease, stage 3a; I95.89 Other hypotension; I27.20 Pulmonary hypertension, unspecified; R00.0 Tachycardia, unspecified; E83.42 Hypomagnesemia
CPT/HCPCS: G0379; 36415; 80053; 83735; 84484; 85014; 85018; 85025; 87636; 93005; 93270; G0378; J3475

== ENCOUNTER 2023-04-19 10:24 | Inpatient (IN) | payer MEDICARE, SELFPAY ==
[2023-04-19] VITALS (11 sets, daily range): BP systolic 76–99; BP diastolic 52–69; PULSE 90–102; RESP 16–20; TEMP 36.4–36.8; O2SAT 92–96; BMI 24.4; BMI 22.4
--- NOTE | 2023-04-19 10:34 | ECG_ITS ---
APPROVED REPORT Exam: Resting ECG HR:101 bpm ECG Measurements Heart Rate 101 AXES AR 158 P 75 QRSd 122 QRS 259 QT 382 T 48 QTc 440 Conclusion SINUS TACHYCARDIA INDETERMINATE AXIS RIGHT BUNDLE BRANCH BLOCK [120+ ms QRS DURATION, UPRIGHT V1, 40+ ms S IN I/aVL/V4/V5/V6] LEFT POSTERIOR FASCICULAR BLOCK [QRS AXIS > 109, INFERIOR Q] ABNORMAL ECG UNCONFIRMED REPORT Electronically signed by : Yimi Brand, 04/19/2023 15:45:34
--- NOTE | 2023-04-19 10:43 | PC.NURSE ---
dr awad at bedside
--- NOTE | 2023-04-19 10:50 | XR_ITS ---
FINAL REPORT CLINICAL HISTORY: Shortness of breath COMPARISON: 03/04/2023 FINDINGS: A single portable view of the chest was obtained. The heart size and pulmonary vascularity are within normal limits. The mediastinum is within normal limits. Multiple pulmonary nodules are worrisome for neoplasm. The bony thorax is intact. IMPRESSION: Multiple pulmonary nodules worrisome for neoplasm. Reviewed, Interpreted and Dictated by Dm Navas III, MD Transcribed by Jinny De Los Santos Authenticated and [facility]
--- NOTE | 2023-04-19 10:56 | PC.NURSE ---
Dr. Brand bedside performing a bedside US.
--- NOTE | 2023-04-19 11:05 | ED_ITS ---
Discharge Plan Disposition Patient Disposition: Admitted Prescriptions Prescriptions: No Action metoprolol succinate 25 mg tablet extended release 24 hr 12.5 mg PO DAILY Jardiance 10 mg tablet 10 mg PO DAILY 90 Days Qty: 90 1RF mecobalamin (vitamin B12) 10,000 mcg recon soln 1,000 mcg IM .once weekly Qty: 50 0RF (DME) BD Integra Syringe 3 mL 25 gauge x 1 syringe See Rx Instructions .Route Qty: 100 0RF Rx Instructions: As directed once a month nitroglycerin [Nitrostat] 0.4 mg Tablet, Sublingual 0.4 mg sublingual Q5MINP PRN (Reason: Chest Pain) 30 Days Qty: 25 0RF aspirin 81 mg tablet,delayed release (DR/EC) 81 mg PO DAILY tamsulosin 0.4 mg capsule 0.4 mg PO HS omeprazole 20 mg capsule,delayed release(DR/EC) 20 mg PO DAILY loratadine 10 mg tablet 10 mg PO DAILY furosemide 40 mg tablet 40 mg PO DAILYP PRN (Reason: Swelling) Patient Comments: TAKE 1 TABLET BY MOUTH ONCE DAILY -TAKE IF HAVE A WEIGHT GAIN OF >2LBS IN 24 HOURS spironolactone 25 mg tablet 25 mg PO DAILY Patient Comments: TAKE 1 TABLET BY MOUTH ONCE DAILY magnesium oxide 400 mg (241.3 mg magnesium) Tablet 400 mg PO DAILY 30 Days Qty: 30 0RF finasteride 5 mg Tablet 5 mg PO HS 30 Days Qty: 30 0RF Referrals Follow up/Referrals: Sim Orourke DO [Primary Care Provider] - See instructions Clinical Impressions Clinical Impression: Acute dyspnea, Right sided abdominal pain, Pulmonary nodule, Liver masses, Metastatic disease Discharge ED Provider: Roderick Brand HPI General Chief Complaint: Shortness of Breath/Dyspnea Stated Complaint: soa, pain in right side, weakness Time Seen by Provider: 04/19/23 10:40 Mode of Arrival: Wheelchair Source of Information: Patient and Spouse Limitations: No Limitations Description of Symptoms (Recalled from ER Triage Doc. by RN): pt c/o RUQ/RLQ pain that is intermittant x6d. pt states the pain is sharp in nature, 8/10 and extremely tender to palpation. pt c/o SOA and increasing weakness x3-4d. pt has a hx of CHF and is a pt of . History of Present Illness HPI narrative: Patient is an 87-year-old male present today with profound shortness of breath with exertion over the last 2 days but also right upper right lower quadrant abdominal pain over the last 6 days. Denies any nausea vomiting or diarrhea denies any fevers or chills. Denies any significant chest pain. Has a known history of severe pulmonary hypertension recently having his Entresto stopped due to hypotension and is closely followed by our cardiology service here. Related Data Home Medications Medication Instructions Recorded Confirmed aspirin 81 mg tablet,delayed 81 mg PO DAILY 03/05/23 04/04/23 release loratadine 10 mg tablet 10 mg PO DAILY 03/05/23 04/04/23 omeprazole 20 mg capsule,delayed 20 mg PO DAILY 03/05/23 04/04/23 release tamsulosin 0.4 mg capsule 0.4 mg PO HS 03/05/23 04/04/23 furosemide 40 mg tablet 40 mg PO DAILYP PRN Swelling 03/25/23 04/04/23 spironolactone 25 mg tablet 25 mg PO DAILY Fluid 03/25/23 04/04/23 metoprolol succinate 25 mg 12.5 mg PO DAILY 04/04/23 04/04/23 tablet,extended release 24 hr Previous Rx's Medication Instructions Recorded nitroglycerin 0.4 mg sublingual 0.4 mg sublingual Q5MINP PRN Chest 11/12/22 tablet (Nitrostat) Pain 30 days #25 tabs empagliflozin 10 mg tablet 10 mg PO DAILY 90 days #90 tabs 12/10/22 (Jardiance) finasteride 5 mg tablet 5 mg PO HS 30 days #30 tabs 03/26/23 magnesium oxide 400 mg (241.3 mg 400 mg PO DAILY 30 days #30 tabs 03/26/23 magnesium) tablet mecobalamin (vitamin B12) 10,000 1,000 mcg IM .once weekly vitamin 04/15/23 mcg solution for injection d deficiency #50 ea syringe with needle, safety 3 mL #100 ea 04/15/23 25 gauge x 1 (BD Integra Syringe) Allergies Allergy/AdvReac Type Severity Reaction Status Date / Time Penicillins Allergy Severe stops Verified 04/04/23 13:04 breathing Tdtozin-TBG-WdI Reductase AdvReac Nausea Verified 04/04/23 13:04 Inhibitor PFSH [facility] Disclaimer: The information contained in this section may have been updated after the patient was seen, as this information can be updated by other users. Medical History Acute HFrEF (heart failure with reduced ejection fraction) Acute systolic CHF (congestive heart failure) BPH (benign prostatic hyperplasia) Cardiomyopathy Coronary artery disease Dizziness Heart failure with reduced ejection fraction HFrEF (heart failure with reduced ejection fraction) Hyperlipidemia Hypertension Impingement syndrome, shoulder, left PRISCILA (obstructive sleep apnea) Patient refuses to use the CPAP. 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 Shortness of Breath Uncoordinated movements Vitamin B12 deficiency Surgical History Normal colonoscopy Family History Other Heart disease Hypertension Kidney disease Social History Smoking Status: Never smoker alcohol intake: never substance use type: denies use current occupational status: employed Travel in the last 8 weeks: None ROS Obtained: Yes All systems reviewed & no additional complaints except as documented Physical Exam General General appearance: alert Respiratory Respiratory exam: Present normal lung sounds bilaterally; Absent respiratory distress Cardiovascular Cardiovascular exam: Present normal rhythm and tachycardia Abdominal Exam Abdominal exam: Present soft and tenderness (Right upper quadrant and right lower quadrant and right lateral flank tenderness to palpation no rebound or guarding no masses felt) Neurological Exam Neurological exam: Present alert and oriented X3 HEART Score HEART Score HEART Score assessment performed?: Yes History (anamnesis): Slightly suspicious ECG: Non-specific disturbance Age: >65 years Risk factors: Atherosclerosis history Troponin: </= normal limit HEART Score: 5 Critical Care Critical Care Time Critical Care Time: No Medical Decision Making [place] Inquiry Pt receiving controlled substance: No Vital Signs Vital Signs: 04/19/23 10:47 04/19/23 11:30 04/19/23 11:35 Temperature 97.5 F L Temperature Source Oral Pulse Rate 98 H 98 H Pulse Rate [Left] 102 H Respiratory Rate 16 20 20 Blood Pressure 89/58 L 87/57 L Blood Pressure [Right Arm] 96/69 L Blood Pressure Mean 68 64 Blood Pressure Mean [Right Arm] 78 Blood Pressure Source [Right Arm] Automatic Cuff Blood Pressure Position [Right Arm] Sitting 02 Sat by Pulse Oximetry 95 96 94 L Oxygen Delivery Method Room Air 04/19/23 12:00 04/19/23 12:30 04/19/23 13:00 Temperature Temperature Source Pulse Rate 96 H 96 H 94 H Pulse Rate [Left] Respiratory Rate 20 Blood Pressure 89/57 L 76/54 L 95/52 L Blood Pressure [Right Arm] Blood Pressure Mean 66 58 63 Blood Pressure Mean [Right Arm] Blood Pressure Source [Right Arm] Blood Pressure Position [Right Arm] 02 Sat by Pulse Oximetry 94 L 93 L 94 L Oxygen Delivery Method 04/19/23 13:30 Temperature Temperature Source Pulse Rate 90 Pulse Rate [Left] Respiratory Rate 20 Blood Pressure 99/62 L Blood Pressure [Right Arm] Blood Pressure Mean 70 Blood Pressure Mean [Right Arm] Blood Pressure Source [Right Arm] Blood Pressure Position [Right Arm] 02 Sat by Pulse Oximetry 95 Oxygen Delivery Method Lab Data Lab results reviewed: Yes I reviewed the patient's lab results. Labs: Lab Results 04/19/23 10:45: D-Dimer 2.50 H, Sodium 133 L, Potassium 4.8, Chloride 97 L, Carbon Dioxide 23, Anion Gap 17.8 H, BUN 77 H, Creatinine 2.60 H, Estimated Creat Clear 24, Estimated GFR 24 L, Est GFR ( Amer) 29 L, Glucose 123 H, Calcium 10.1, Total Bilirubin 3.7 H, AST 333 H*, ALT 156 H, Alkaline Phosphatase 650 H, Troponin I 0.18 H, NT-Pro-B Natriuret Pep 5130 H, Total Protein 6.7, Albumin 3.7, Globulin 3.0, Albumin/Globulin Ratio 1.2, Lipase 265 04/19/23 11:05: WBC 12.1 H, RBC 4.64, Hgb 15.5, Hct 48.7, MCV 105.0 H, MCH 33.4 H, MCHC 31.8, RDW 14.5, Plt Count 347, MPV 9.3, Neut % (Auto) 85.9 H, Lymph % (Auto) 8.6 L, [place] % (Auto) 4.4, Eos % (Auto) 0.7, Baso % (Auto) 0.3, Neut # (Auto) 10.4 H, Lymph # (Auto) 1.0, [place] # (Auto) 0.5, Eos # (Auto) 0.1, Baso # (Auto) 0.0 04/19/23 11:05 04/19/23 10:45 Response Orders (Tests/Meds): ED MEDICATIONS Discontinued Medications Generic Name Dose Route Start Last Admin Trade Name Freq PRN Reason Stop Dose Admin Morphine Sulfate 2 mg 04/19/23 10:51 04/19/23 11:09 Morphine 4mg/Ml Syringe IV 04/19/23 10:52 2 mg ONCE ONE Administration Ondansetron HCl 4 mg 04/19/23 10:51 04/19/23 11:09 Ondansetron 4mg/2ml Vial IV 04/19/23 10:52 4 mg ONCE ONE Administration ORDERS Category Date Time Status CT abdomen pelvis wo con Stat Cat Scan 04/19/23 11:34 Completed CXR --portable [XR chest portable] Stat Exams 04/19/23 10:50 Completed POCUS Point of Care (ER Only) Stat Exams 04/19/23 10:52 Completed BNP [Brain Natriuretic Peptide] Stat Lab 04/19/23 10:45 Completed CBC w/Auto Diff [Complete Blood Count Auto Diff] Stat Lab 04/19/23 11:05 Results CMP [Comprehensive Metabolic Panel] Stat Lab 04/19/23 10:45 Completed D-Dimer Stat Lab 04/19/23 10:45 Completed Lipase Stat Lab 04/19/23 10:45 Completed Trop I [Troponin I] Stat Lab 04/19/23 10:45 Completed Troponin I Q3H Lab 04/19/23 14:00 Ordered Troponin I Q3H Lab 04/19/23 17:00 Ordered ECG Data Tracing #1: Attestation: I reviewed this ECG and interpreted as documented below: ECG Narrative: ventricular rate of 101 with sinus tachycardia no acute ischemic changes noted there is a right bundle branch block and left posterior fascicular block indeterminate axis MDM Narrative Medical Decision Narrative: Patient is an 87-year-old male with above history presenting today with dyspnea as well as right upper and right lower quadrant abdominal discomfort. These are likely unrelated to 1 another regarding the abdomen differential includes hepatobiliary disease bowel obstruction appendicitis colitis constipation diverticulitis kidney stone etc. Regarding the dyspnea differential includes worsening of his chronic pulmonary hypertension which is most likely in this particular case acute coronary syndrome pulmonary embolism pneumonia etc. Limited bedside ultrasound of his heart and lungs did not demonstrate any obvious pathology. Reassessment 1:[address] scan performed which I personally interpreted which shows multiple pulmonary nodules and also numerous masses throughout the liver consistent with metastatic disease of unknown primary. Patient does not have a history of cancer to his knowledge. Additionally the patient has an elevated creatinine of 2.6 which is elevated out of proportion to his baseline this is consistent with acute kidney injury. For both of these reasons patient will be admitted for further evaluation and treatment. I suspect his fatigue is both from his pulmonary hypertension but also from the metabolic activity from the actively growing and rapidly growing metastatic disease. Family's been made aware of this and the poor prognosis associated with this. I spoke with Dr. Fleming who agreed to admit the patient for further evaluation and treatment.
[2023-04-19] MEDS: MORPHINE 4MG/ML SYRINGE 2 MG IV (11:09)
[2023-04-19] MEDS: ONDANSETRON 4MG/2ML VIAL 4 MG IV (11:09)
[2023-04-19 11:28] LABS: Chloride 97 mmol/L (98-107)
[2023-04-19 11:29] LABS: Potassium 4.8 mmoL/L (3.5-5.1); Sodium 133 mmol/L (136-145)
[2023-04-19 11:31] LABS: Alanine Aminotransferase 156 U/L (12-78); Albumin Level 3.7 g/dl (3.5-5.0); Albumin/Globulin Ratio 1.2 (1.1-1.8); Alkaline Phosphatase 650 U/L (38-126); Anion Gap 17.8 mEq/L (5-15); Aspartate Amino Transferase 333 U/L (17-59); Bilirubin,Total 3.7 mg/dl (0.2-1.3); Blood Urea Nitrogen 77 mg/dl (9-20); Carbon Dioxide 23 mmol/L (22.0-30.0); Creatinine Clearance Estimated 24 mL/min (50-200); Estimated Glomerular Filt Rate 24 ml/min (>60); GFR (African American) 29 ML/MIN (>60); Lipase 265 U/L (23-300); Total Protein,Serum 6.7 g/dl (6.3-8.2)
[2023-04-19 11:32] LABS: Calcium 10.1 mg/dl (8.4-10.2); Glucose 123 mg/dl (74-100)
[2023-04-19 11:33] LABS: NT Pro Brain Natriuretic Pep. 5130 pg/mL (0-450); Troponin I 0.18 ng/ml (0.00-0.034)
--- NOTE | 2023-04-19 11:34 | CT_ITS ---
FINAL REPORT CLINICAL HISTORY: abd pain ruq and rlq FINDINGS: Axial CT images of the abdomen and pelvis were obtained without intravenous contrast. Coronal reformatted images were also obtained.This study was performed with techniques to keep radiation doses as low as reasonably achievable (ALARA). Individualized dose reduction techniques using automated exposure control or adjustment of mA and/or kV according to the patient's size were employed. Abdomen: There are multiple noncalcified nodules in the lung bases measuring up to 14 mm on the right and up to 19 mm on the left. Findings are consistent with pulmonary metastases. There are small nonobstructing renal stones. There are bilateral probable renal cysts. There is an 11 mm mass in the lateral right kidney which does not appear to be a simple cyst. There are masses throughout the liver consistent with widespread metastatic disease. There are likely gallstones in the gallbladder. The spleen, adrenal glands and pancreas have an unremarkable, unenhanced appearance. Pelvis: The appendix is normal. There is no evidence of bowel obstruction. There is significant diverticulosis without evidence of diverticulitis. The urinary bladder is unremarkable. 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 Cholelithiasis. Reviewed, Interpreted and Dictated by Dm Navas III, MD Transcribed by Macey Greer Authenticated and [facility]
[2023-04-19 11:38] LABS: Basophils % 0.3 % (0.1-2.0); Eosinophils # 0.1 K/mm3 (0.0-0.4); Eosinophils % 0.7 % (0.1-12.0); Hematocrit 48.7 % (42.0-52.0); Hemoglobin 15.5 g/dL (14.1-18.0); Lymphocytes % 8.6 % (10-50); Mean Corpuscular HGB Conc 31.8 g/dL (31.8-35.4); Mean Corpuscular Hemoglobin 33.4 pg (27.0-31.2); Mean Platelet Volume 9.3 fl (7.4-10.4); Monocytes # 0.5 K/mm3 (0.1-1.0); Monocytes % 4.4 % (1.7-9.3); Neutrophils # 10.4 K/mm3 (1.8-7.8); Neutrophils % 85.9 % (37.0-80.0); Platelet Count 347 K/mm3 (142-424); Red Blood Count 4.64 M/mm3 (4.60-6.20); Red Cell Distribution Width 14.5 % (11.5-17.5); White Blood Count 12.1 K/mm3 (4.8-10.8)
[2023-04-19 11:40] LABS: MANUAL DIFFERENTIAL MANUAL DIFFERENTIAL (MANUAL DIFF)
--- NOTE | 2023-04-19 12:25 | PC.NURSE ---
Rounded on pt to see if they needed anything... pt had no needs at this time
--- NOTE | 2023-04-19 13:06 | PC.NURSE ---
DR MÁRQUEZ AT BEDSIDE TO UPDATE PT AND FAMILY
--- NOTE | 2023-04-19 13:45 | PC.NURSE ---
DR MÁRQUEZ SPEAKING WITH DR EDGAR FOR ADMISSION
--- NOTE | 2023-04-19 13:51 | PC.NURSE ---
DR EDGAR AT BEDSIDE
--- NOTE | 2023-04-19 13:54 | PC.NURSE ---
Admissions notified of admit to room 203 for ALVARO and CHF to . OBS.
--- NOTE | 2023-04-19 14:14 | PC.NURSE ---
REPORT CALLED TO FRANK OLIVEROS
--- NOTE | 2023-04-19 14:15 | PC.NURSE ---
RAN ERNANDEZ WITH CARDIOLOGY AT BEDSIDE
--- NOTE | 2023-04-19 14:22 | EXP.CARD.CON ---
History of Present Illness History of Present Illness Consult date: 04/19/23 Requesting physician: Yimi Fleming Consult reason: known to you and shortness of breath Chief complaint: Right upper quadrant pain, shortness of breath and weakness History of present illness: This is an 87-year-old white gentleman who presented to the emergency department with complaints of right upper quadrant abdominal pain and weakness and fatigue. The patient also states he has been having shortness of breath with exertion over the last 2 days. He states that the right upper quadrant pain has been going on for approximately 6 days. He denies any associated nausea or vomiting. He denies any diarrhea or constipation. The patient states that he denies any chest pain or pressure. He denies any lower extremity edema. He denies any fever, chills, nausea, vomiting, diarrhea, PND or orthopnea. The patient does have known HFrEF and pulmonary hypertension. His Entresto was recently stopped due to hypotension and he has been cut back significantly on his diuretics due to hypotension and worsening renal function. [facility] Disclaimer: The information contained in this section may have been updated after the patient was seen, as this information can be updated by other users. Medical History Acute HFrEF (heart failure with reduced ejection fraction) Acute systolic CHF (congestive heart failure) BPH (benign prostatic hyperplasia) Cardiomyopathy Coronary artery disease Dizziness Heart failure with reduced ejection fraction HFrEF (heart failure with reduced ejection fraction) Hyperlipidemia Hypertension Impingement syndrome, shoulder, left PRISCILA (obstructive sleep apnea) Patient refuses to use the CPAP. 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 Shortness of Breath Uncoordinated movements Vitamin B12 deficiency Surgical History Normal colonoscopy Family History Other Heart disease Hypertension Kidney disease Social History Smoking Status: Never smoker alcohol intake: never substance use type: denies use current occupational status: employed Travel in the last 8 weeks: None Review of Systems Review of Systems Review of systems:: pertinent systems reviewed and negative unless documented below Constitutional Constitutional: Reports system reviewed and no additional complaints, except as documented, Reports fatigue, Reports lethargy and Reports weakness Eyes Eyes: Reports system reviewed and no additional complaints, except as documented ENT Ears, Nose, Mouth, and Throat: Reports system reviewed and no additional complaints, except as documented *Cardiovascular Cardiovascular: Reports system reviewed and no additional complaints, except as documented, Denies chest pain, Reports dyspnea on exertion and Denies leg edema *Respiratory Respiratory: Reports system reviewed and no additional complaints, except as documented and Reports dyspnea on exertion *Gastrointestinal Gastrointestinal: Reports system reviewed and no additional complaints, except as documented and Reports abdominal pain *Genitourinary Genitourinary: Reports system reviewed and no additional complaints, except as documented *Musculoskeletal Musculoskeletal: Reports system reviewed and no additional complaints, except as documented Integumentary/Breasts Skin/Breast: Reports system reviewed and no additional complaints, except as documented *Neurologic Neurologic: Reports system reviewed and no additional complaints, except as documented and Reports weakness Psychiatric Psychiatric: Reports system reviewed and no additional complaints, except as documented Endocrine Endocrine: Reports system reviewed and no additional complaints, except as documented and Reports fatigue Hematologic/Lymphatic Hematologic/Lymphatic: Reports system reviewed and no additional complaints, except as documented Allergic/Immunologic Allergic/Immunologic: Reports system reviewed and no additional complaints, except as documented Exam Data for Last 24 hours Vital signs and Labs for Last 24 Hours: Temp Pulse Resp BP Pulse Ox O2 Del Method 97.5 F L 90 20 99/62 L 95 Room Air 04/19/23 10:47 04/19/23 13:30 04/19/23 13:30 04/19/23 13:30 04/19/23 13:30 04/19/23 10:47 Laboratory Results - last 24 hr 04/19/23 10:45: D-Dimer 2.50 H, Sodium 133 L, Potassium 4.8, Chloride 97 L, Carbon Dioxide 23, Anion Gap 17.8 H, BUN 77 H, Creatinine 2.60 H, Estimated Creat Clear 24, Estimated GFR 24 L, Est GFR ( Amer) 29 L, Glucose 123 H, Calcium 10.1, Total Bilirubin 3.7 H, AST 333 H*, ALT 156 H, Alkaline Phosphatase 650 H, Troponin I 0.18 H, NT-Pro-B Natriuret Pep 5130 H, Total Protein 6.7, Albumin 3.7, Globulin 3.0, Albumin/Globulin Ratio 1.2, Lipase 265 04/19/23 11:05: WBC 12.1 H, RBC 4.64, Hgb 15.5, Hct 48.7, MCV 105.0 H, MCH 33.4 H, MCHC 31.8, RDW 14.5, Plt Count 347, MPV 9.3, Neut % (Auto) 85.9 H, Lymph % (Auto) 8.6 L, [place] % (Auto) 4.4, Eos % (Auto) 0.7, Baso % (Auto) 0.3, Neut # (Auto) 10.4 H, Lymph # (Auto) 1.0, [place] # (Auto) 0.5, Eos # (Auto) 0.1, Baso # (Auto) 0.0 I & O for Last 24 hours: Intake & Output 04/16/23 04/17/23 04/18/23 04/19/23 23:59 23:59 23:59 23:59 Weight 180 lb Constitutional Constitutional: no acute distress and average body habitus *Routine HEENT Exam Head: Present normocephalic and atraumatic ENT: Present mucous membranes moist *Routine Neck Exam Neck: Present supple, full ROM and normal carotid upstroke; Absent JVD, carotid bruit or lymphadenopathy *Routine Respiratory Exam Respiratory: Present CTA bilaterally, normal respiratory effort, able to speak in complete sentences and symmetric chest movement *Routine Cardiovascular Exam Cardiovascular: Present RRR, Normal S1 and Normal S2; Absent murmur or gallop *Routine Abdominal Exam Abdominal: Present soft and normoactive bowel sounds; Absent tenderness, distended or organomegaly *Routine Extremities Exam Extremities: Present full ROM, pulses intact and normal capillary refill; Absent cyanosis, clubbing or edema *Routine Skin Exam Skin: Present intact, pallor and warm; Absent erythema *Routine Neurological Exam Neurological: Present alert, oriented X3 and CN II-XII intact; Absent sensory deficit or motor deficit Routine Psychiatric Exam Psychiatric: Present normal affect Meds Home Medications and Allergies Home Medications Medication Instructions Recorded Confirmed Type nitroglycerin 0.4 mg sublingual 0.4 mg sublingual Q5MINP PRN Chest 11/12/22 04/04/23 Rx tablet (Nitrostat) Pain 30 days #25 tabs empagliflozin 10 mg tablet 10 mg PO DAILY 90 days #90 tabs 12/10/22 04/04/23 Rx (Jardiance) aspirin 81 mg tablet,delayed 81 mg PO DAILY 03/05/23 04/04/23 History release loratadine 10 mg tablet 10 mg PO DAILY 03/05/23 04/04/23 History omeprazole 20 mg capsule,delayed 20 mg PO DAILY 03/05/23 04/04/23 History release tamsulosin 0.4 mg capsule 0.4 mg PO HS 03/05/23 04/04/23 History furosemide 40 mg tablet 40 mg PO DAILYP PRN Swelling 03/25/23 04/04/23 History spironolactone 25 mg tablet 25 mg PO DAILY Fluid 03/25/23 04/04/23 History finasteride 5 mg tablet 5 mg PO HS 30 days #30 tabs 03/26/23 04/04/23 Rx magnesium oxide 400 mg (241.3 mg 400 mg PO DAILY 30 days #30 tabs 03/26/23 04/04/23 Rx magnesium) tablet metoprolol succinate 25 mg 12.5 mg PO DAILY 04/04/23 04/04/23 History tablet,extended release 24 hr mecobalamin (vitamin B12) 10,000 1,000 mcg IM .once weekly vitamin 04/15/23 Rx mcg solution for injection d deficiency #50 ea syringe with needle, safety 3 mL #100 ea 04/15/23 Rx 25 gauge x 1 (BD Integra Syringe) New Prescriptions to Start Prescriptions: Allergies Allergy/AdvReac Type Severity Reaction Status Date / Time Penicillins Allergy Severe stops Verified 04/04/23 13:04 breathing [id number] Reductase AdvReac Nausea Verified 04/04/23 13:04 Inhibitor Assessment and Plan *Assessment and plan (1) Cardiomyopathy: Status: Chronic Qualifiers: Cardiomyopathy type: unspecified Qualified Code(s): I42.9 - Cardiomyopathy, unspecified Category: Medical Code(s): I42.9 - Cardiomyopathy, unspecified (2) Hyperlipidemia: Status: Chronic Qualifiers: Hyperlipidemia type: mixed hyperlipidemia Qualified Code(s): E78.2 - Mixed hyperlipidemia Category: Medical Code(s): E78.5 - Hyperlipidemia, unspecified (3) PRISCILA (obstructive sleep apnea): Problem Comment: Patient refuses to use the CPAP. Status: Chronic Category: Medical Code(s): G47.33 - Obstructive sleep apnea (adult) (pediatric) (4) Pulmonary hypertension: Problem Comment: Follow-up for now. Status: Acute Category: Medical Code(s): I27.20 - Pulmonary hypertension, unspecified (5) Coronary artery disease: Status: Chronic Qualifiers: Coronary Disease-Associated Artery/Lesion type: [place] artery [place] vs. transplanted heart: [place] heart Associated angina: without angina Qualified Code(s): I25.10 - Atherosclerotic heart disease of [place] coronary artery without angina pectoris Category: Medical Code(s): I25.10 - Atherosclerotic heart disease of [place] coronary artery without angina pectoris (6) HFrEF (heart failure with reduced ejection fraction): Status: Chronic Category: Medical Code(s): I50.20 - Unspecified systolic (congestive) heart failure (7) Fatigue: Status: Acute Qualifiers: Fatigue type: unspecified Qualified Code(s): R53.83 - Other fatigue Category: Medical Code(s): R53.83 - Other fatigue (8) Elevated LFTs: Problem Comment: This patient is 87 years of age and doing extremely well. I do think his elevated liver functions were secondary to hypotension in the hospital. Since they just reduced his metoprolol and he has been somewhat hypotensive at home will double check these in 1-2 months when I see him back Status: Acute Category: Medical Code(s): R79.89 - Other specified abnormal findings of blood chemistry (9) Right sided abdominal pain: Status: Acute Category: Medical Code(s): R10.9 - Unspecified abdominal pain (10) Acute dyspnea: Status: Acute Category: Medical Code(s): R06.00 - Dyspnea, unspecified (11) Metastatic disease: Status: Acute Qualifiers: Area of secondary neoplastic involvement: unspecified site Qualified Code(s): C79.9 - Secondary malignant neoplasm of unspecified site Category: Medical Code(s): C79.9 - Secondary malignant neoplasm of unspecified site (12) ALVARO (acute kidney injury): Status: Acute Category: Medical Code(s): N17.9 - Acute kidney failure, unspecified Plan Plan: 1. The patient presented to the hospital with shortness of breath, weakness and right upper quadrant pain. CT of the abdomen and pelvis shows findings consistent with pulmonary and hepatic metastatic disease. Will defer management of this to the hospitalist. 2. The patient does have a history of HFrEF and pulmonary hypertension. He has recently had to cut back on his diuretics and Entresto due to hypotension and acute ALVARO. Will repeat his echocardiogram at this time to evaluate his EF. 3. Hold diuretics at this time due to his acute kidney injury. The patient may need a little bit of fluid due to his dehydration but we would like to see what his ejection fraction is first. 4. Coronary artery disease is likely stable. 5. His LDL goal is less than 55. No statin due to his elevated liver enzymes. 6. His blood pressure is on the lower side at this time. Continue to hold his Entresto. 7. Continue Jardiance. 8. Continue metoprolol. 9. Obstructive sleep apnea is present. 10. Further recommendations will be made pending the patient's response to treatment. Thank you for the opportunity to help participate in the care of this patient. All recommendations and orders are per Dr. Raya.
--- NOTE | 2023-04-19 14:33 | PC.NURSE ---
arrived by stretcher from ED
[2023-04-19 14:38] LABS: Lymphocytes % 14 % (10-50); Macrocytosis 2+; Monocytes % 1 % (2-9); Neutrophils % 85 % (42-76); Platelet Estimate Normal; Total Cells Counted 100
--- NOTE | 2023-04-19 14:42 | HMH.PHAINT1 ---
Pharmacy Intervention Comments: MEDICATION RECONCILIATION COMPLETED ON PATIENT USING EXTERNAL FILL HISTORY FROM PHARMACY AND LIST FROM PCP/CARDIOLOGY OFFICES. -RAMONITA STERLING, [place]
[2023-04-19 15:00] LABS: Troponin I 0.17 ng/ml (0.00-0.034)
--- NOTE | 2023-04-19 16:24 | P.HP_ITS ---
History of Present Illness *Admission Date: 04/19/23 *Reason for visit:: weakness, abdominal pain *History of present illness: Mr. Carpenter is an 87-year-old male with history of CHF, CKD, BPH who presented to the ER due to worsening right upper quadrant pain and weakness over the past 3 to 4 days. Reports he was supposed to establish with Dr. Soto (oncology) today for his anemia but was too weak and fatigued and came to the ER for evaluation. On presentation he is complaining of weakness and fatigue. Tender to palpation right upper quadrant. Has had some increased shortness of breath with exertion over the past few days. Worse than his normal dyspnea which has been going on for several months. Denies any nausea, vomiting, diarrhea. No fever or chills. Workup in the ER concerning initially for elevated LFTs. Further workup including imaging of abdomen showed diffuse infiltration of his liver with multiple pulmonary nodules and lesions on his kidneys. Patient also noted to have acute on chronic kidney injury. In light of his multiple findings, weakness, organ dysfunction, medicine was consulted for admission and further management. On evaluation, patient at bedside with him. Again complains of right upper quadrant abdominal pain. He has not had much to eat for the past 3 to 4 days. Appears more ill than the previous times I have seen him. He is on room air. Blood pressure softer than normal but MAP greater than 65. [facility] Disclaimer: The information contained in this section may have been updated after the patient was seen, as this information can be updated by other users. 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 Surgical History Normal colonoscopy Family History Kidney disease Heart disease Hypertension Social History Smoking Status: Never smoker alcohol intake: never substance use type: denies use current occupational status: employed Travel in the last 8 weeks: None Review of Systems Review of Systems Review of systems (narrative): 14 point review of systems performed, pertinent positives and negatives as per HPI Constitutional Constitutional: Reports weakness *Neurologic Neurologic: Reports system reviewed and no additional complaints, except as documented and Reports weakness Meds Home Medications and Allergies Home Medications Medication Instructions Recorded Confirmed Type nitroglycerin 0.4 mg sublingual 0.4 mg sublingual Q5MINP PRN Chest 11/12/22 04/19/23 Rx tablet (Nitrostat) Pain 30 days #25 tabs empagliflozin 10 mg tablet 10 mg PO DAILY 90 days #90 tabs 12/10/22 04/19/23 Rx (Jardiance) aspirin 81 mg tablet,delayed 81 mg PO DAILY Heart Health 03/05/23 04/19/23 History release loratadine 10 mg tablet 10 mg PO DAILY Allergy Symptoms 03/05/23 04/19/23 History omeprazole 20 mg capsule,delayed 20 mg PO DAILY Acid Reflux 03/05/23 04/19/23 History release tamsulosin 0.4 mg capsule 0.4 mg PO HS prostate 03/05/23 04/19/23 History furosemide 40 mg tablet 40 mg PO DAILYP PRN Swelling 03/25/23 04/19/23 History spironolactone 25 mg tablet 25 mg PO DAILY Fluid 03/25/23 04/19/23 History finasteride 5 mg tablet 5 mg PO HS 30 days #30 tabs 03/26/23 04/19/23 Rx metoprolol succinate 25 mg 12.5 mg PO DAILY 04/04/23 04/19/23 History tablet,extended release 24 hr syringe with needle, safety 3 mL #100 ea 04/15/23 04/19/23 Rx 25 gauge x 1 (BD Integra Syringe) magnesium oxide 400 mg (241.3 mg 400 mg PO DAILY Supplement 04/19/23 04/19/23 History magnesium) tablet mecobalamin (vitamin B12) 10,000 1,000 mcg IM WEEKLY Supplement 04/19/23 04/19/23 History mcg solution for injection New Prescriptions to Start Prescriptions: Allergies Allergy/AdvReac Type Severity Reaction Status Date / Time Penicillins Allergy Severe stops Verified 04/19/23 14:44 breathing [id number] Reductase AdvReac Nausea Verified 04/19/23 14:44 Inhibitor Exam Data for Last 24 hours Vital signs and Labs for Last 24 Hours: Temp Pulse Resp BP Pulse Ox O2 Del Method 97.5 F L 90 18 95/60 L 92 L Room Air 04/19/23 14:48 04/19/23 14:48 04/19/23 14:48 04/19/23 14:48 04/19/23 14:48 04/19/23 15:53 Laboratory Results - last 24 hr 04/19/23 10:45: D-Dimer 2.50 H, Sodium 133 L, Potassium 4.8, Chloride 97 L, Carbon Dioxide 23, Anion Gap 17.8 H, BUN 77 H, Creatinine 2.60 H, Estimated Creat Clear 24, Estimated GFR 24 L, Est GFR ( Amer) 29 L, Glucose 123 H, Calcium 10.1, Total Bilirubin 3.7 H, AST 333 H*, ALT 156 H, Alkaline Phosphatase 650 H, Troponin I 0.18 H, NT-Pro-B Natriuret Pep 5130 H, Total Protein 6.7, Albumin 3.7, Globulin 3.0, Albumin/Globulin Ratio 1.2, Lipase 265 04/19/23 11:05: WBC 12.1 H, RBC 4.64, Hgb 15.5, Hct 48.7, MCV 105.0 H, MCH 33.4 H, MCHC 31.8, RDW 14.5, Plt Count 347, MPV 9.3, Neut % (Auto) 85.9 H, Lymph % (Auto) 8.6 L, [place] % (Auto) 4.4, Eos % (Auto) 0.7, Baso % (Auto) 0.3, Neut # (Auto) 10.4 H, Lymph # (Auto) 1.0, [place] # (Auto) 0.5, Eos # (Auto) 0.1, Baso # (Auto) 0.0, Total Counted 100, Neutrophils % (Manual) 85 H, Lymphocytes % (Manual) 14, Monocytes % (Manual) 1 L, Platelet Estimate Normal, Macrocytosis 2+ 04/19/23 14:08: Troponin I 0.17 H I & O for Last 24 hours: Intake & Output 03/07/0404/17/23 04/18/23 04/19/23 23:59 23:59 23:59 23:59 Weight 74.843 kg Constitutional Constitutional: mild distress, average body habitus, chronically ill appearing and cooperative *Routine HEENT Exam Head: Present normocephalic Eye: Present EOMI and PERRL ENT: Present mucous membranes moist *Routine Neck Exam Neck: Present supple; Absent lymphadenopathy *Routine Respiratory Exam Respiratory: Present CTA bilaterally; Absent rhonchi, wheezes or crackles *Routine Cardiovascular Exam Cardiovascular: Present RRR *Routine Abdominal Exam Abdominal: Present soft, normoactive bowel sounds and tenderness (Palpable edge of liver 5 cm below right costal margin and 1 cm below medial parasternal margin. Tender to palpation); Absent distended or rebound *Routine Rectal Exam Rectal:: deferred *Routine Genitalia Exam Genitalia:: deferred *Routine Extremities Exam Extremities: Absent cyanosis, clubbing or edema *Routine Skin Exam Skin: Present warm; Absent rash *Routine Neurological Exam Neurological: Present alert, oriented X3 and moving all extremities; Absent altered mental status Assessment and Plan *Assessment and plan (1) ALVARO (acute kidney injury): Status: Acute Category: Medical Code(s): N17.9 - Acute kidney failure, unspecified (2) Metastatic disease: Status: Acute Qualifiers: Area of secondary neoplastic involvement: unspecified site Qualified Code(s): C79.9 - Secondary malignant neoplasm of unspecified site Category: Medical Code(s): C79.9 - Secondary malignant neoplasm of unspecified site (3) Liver masses: Status: Acute Category: Medical Code(s): R16.0 - Hepatomegaly, not elsewhere classified (4) Pulmonary nodule: Status: Acute Category: Medical Code(s): R91.1 - Solitary pulmonary nodule (5) Right sided abdominal pain: Status: Acute Category: Medical Code(s): R10.9 - Unspecified abdominal pain (6) Elevated LFTs: Status: Acute Category: Medical Code(s): R79.89 - Other specified abnormal findings of blood chemistry (7) Chronic kidney disease, stage 3a: Status: Chronic Category: Medical Code(s): N18.31 - Chronic kidney disease, stage 3a (8) HFrEF (heart failure with reduced ejection fraction): Status: Chronic Category: Medical Code(s): I50.20 - Unspecified systolic (congestive) heart failure (9) Coronary artery disease: Status: Chronic Qualifiers: Associated angina: without angina Coronary Disease-Associated Artery/Lesion type: [place] artery [place] vs. transplanted heart: [place] heart Qualified Code(s): I25.10 - Atherosclerotic heart disease of [place] coronary artery without angina pectoris Category: Medical Code(s): I25.10 - Atherosclerotic heart disease of [place] coronary artery without angina pectoris (10) Pulmonary hypertension: Problem Comment: Follow-up for now. Status: Acute Category: Medical Code(s): I27.20 - Pulmonary hypertension, unspecified (11) Hyperlipidemia: Status: Chronic Qualifiers: Hyperlipidemia type: mixed hyperlipidemia Qualified Code(s): E78.2 - Mixed hyperlipidemia Category: Medical Code(s): E78.5 - Hyperlipidemia, unspecified (12) Cardiomyopathy: Status: Chronic Qualifiers: Cardiomyopathy type: unspecified Qualified Code(s): I42.9 - Cardiomyopathy, unspecified Category: Medical Code(s): I42.9 - Cardiomyopathy, unspecified Plan 87-year-old male with multiple cardiac comorbidities, CKD, BPH. Presented to the ER with worsening fatigue and abdominal pain. In the ER, workup concerning for ALVARO, transaminitis, new finding of metastases to the liver. Discussed case with ER physician, request admission for treatment of ALVARO and further workup of metastases. Medicine agreed to admit. Cardiology consulted to assist with care. Problems addressed as follows: Abdominal pain Liver metastases, unknown primary Transaminitis -CT personally reviewed, diffuse infiltration of liver with multiple metastases. Has several small nodules in bilateral lungs. Will attempt to obtain biopsy the beginning of the week with interventional radiology to facilitate further management as an outpatient. Patient to be referred to Dr. Soto for oncology at [facility]. -Holding statin in the setting of transaminitis, monitor for improvement with fluid resuscitation -INR pending for the morning -Will consider IV morphine for pain every 4 hours as needed Pulmonary hypertension Heart failure with reduced ejection fraction -Cardiology consulted, appreciate their recommendations. Will hold patient's diuretics and Entresto at this time given soft blood pressure and ALVARO. Will provide gentle hydration with 100 cc/h of LR for total of 500 cc in the setting of ALVARO and clinically appearing dry. -Repeat echocardiogram obtained, formal read pending to evaluate patient's heart failure -Holding statin due to elevated liver enzymes -Will hold Jardiance until kidney function improves -Continue metoprolol. ALVARO on CKD -Creatinine elevated 2.6, BUN 77. Gentle hydration. Repeat CBC, CMP, magnesium ordered for the morning. BPH: Continue home finasteride and tamsulosin Full code Heparin subcu Regular diet
[2023-04-19 17:32] LABS: Troponin I 0.17 ng/ml (0.00-0.034)
--- NOTE | 2023-04-19 17:44 | PC.NURSE ---
. wants LR @ 100 ml/hr times a dose total of 500ml.
[2023-04-19] MEDS: FINASTERIDE 5MG TABLET 5 MG PO (20:20)
[2023-04-19] MEDS: HEPARIN SODIUM 5,000 UNIT/ML VIAL 5000 UNIT SQ (20:20)
[2023-04-19] MEDS: TAMSULOSIN 0.4MG CAPSULE 0.400000000000000022 MG PO (20:20)
[2023-04-20] VITALS (7 sets, daily range): BP systolic 87–109; BP diastolic 52–68; PULSE 90–113; RESP 14–21; TEMP 36.3–37; O2SAT 91–97; BMI 222133.0
--- NOTE | 2023-04-20 04:28 | PC.NURSE ---
PATIENT HAS HAD A QUIET UNEVENTFUL NIGHT. NO COMPLAINTS OF CHEST PAIN OR SOA. PATIENT STATES HE HAS SOME SOA ON EXERTION BUT NOT AT REST. 02 SATS 95-96% ON ROOM AIR. SINUS RHYTHM/BBB ON TELE. REPORTS ABDOMINAL TENERNESS ON PALPATION OF RUQ. VITAL SIGNS STABLE/AFEBRILE.
[2023-04-20 07:40] LABS: Alanine Aminotransferase 168 U/L (12-78); Albumin Level 3.3 g/dl (3.5-5.0); Albumin/Globulin Ratio 1.2 (1.1-1.8); Alkaline Phosphatase 705 U/L (38-126); Anion Gap 15.8 mEq/L (5-15); Aspartate Amino Transferase 403 U/L (17-59); Bilirubin,Total 4.7 mg/dl (0.2-1.3); Calcium 9.5 mg/dl (8.4-10.2); Carbon Dioxide 25 mmol/L (22.0-30.0); Chloride 96 mmol/L (98-107); Creatinine Clearance Estimated 21 mL/min (50-200); Estimated Glomerular Filt Rate 23 ml/min (>60); GFR (African American) 27 ML/MIN (>60); Globulin 2.8 g/dL (1.3-3.2); Glucose 103 mg/dl (74-100); Magnesium 2.8 mg/dl (1.6-2.3); Potassium 4.8 mmoL/L (3.5-5.1); Sodium 132 mmol/L (136-145); Total Protein,Serum 6.1 g/dl (6.3-8.2)
[2023-04-20 07:41] LABS: INR 1.14 (0.9-1.1); Prothrombin Time 12.2 seconds (10.1-12.5)
[2023-04-20 07:43] LABS: Blood Urea Nitrogen 81 mg/dl (9-20)
[2023-04-20] MEDS: LACTATED RINGERS 1000ML 1,000 ML 125 ML IV (07:45)
[2023-04-20 07:48] LABS: Basophils % 0.3 % (0.1-2.0); Eosinophils # 0.2 K/mm3 (0.0-0.4); Eosinophils % 1.7 % (0.1-12.0); Hematocrit 43.5 % (42.0-52.0); Lymphocytes # 1.1 K/mm3 (0.7-4.5); Lymphocytes % 11.7 % (10-50); Mean Corpuscular HGB Conc 31.6 g/dL (31.8-35.4); Mean Corpuscular Hemoglobin 33.8 pg (27.0-31.2); Mean Corpuscular Volume 106.9 fl (80-94); Mean Platelet Volume 10.1 fl (7.4-10.4); Monocytes # 0.6 K/mm3 (0.1-1.0); Monocytes % 6.4 % (1.7-9.3); Neutrophils # 7.5 K/mm3 (1.8-7.8); Neutrophils % 79.8 % (37.0-80.0); Platelet Count 313 K/mm3 (142-424); Red Blood Count 4.06 M/mm3 (4.60-6.20); Red Cell Distribution Width 14.6 % (11.5-17.5); White Blood Count 9.4 K/mm3 (4.8-10.8)
[2023-04-20 08:03] LABS: Hemoglobin 13.8 g/dL (14.1-18.0)
[2023-04-20] MEDS: HEPARIN SODIUM 5,000 UNIT/ML VIAL 5000 UNIT SQ ×2 (08:50→21:00)
--- NOTE | 2023-04-20 12:58 | EXP.ACUTE.PN ---
Subjective *Date: 04/20/23 *Time: 15:25 Interval history: Still feeling quite weak and short of breath. Afebrile. On room air. No nausea or vomiting. Tolerating IV fluids. Kidney function stabilizing but still abnormal Medical Exam Vital signs and Labs for Last 24 Hours: Vital Signs Temp Pulse Pulse Resp BP BP Pulse Ox 04/20/23 12:00 90 04/20/23 09:00 04/20/23 08:00 110 H 04/20/23 08:00 04/20/23 08:00 97.6 F 99 H 18 87/68 L 95 04/20/23 06:26 04/20/23 05:00 04/20/23 04:00 94 H 04/20/23 03:39 97.4 F L 97 H 14 93/52 L 91 L 04/20/23 03:00 04/20/23 01:00 04/20/23 00:00 113 H 04/20/23 00:00 97.9 F 101 H 16 109/62 L 95 04/19/23 23:00 04/19/23 21:00 04/19/23 20:00 96 04/19/23 20:00 95 H 04/19/23 20:00 98.3 F 92 H 16 93/58 L 96 04/19/23 17:52 04/19/23 16:00 95 H 04/19/23 15:53 04/19/23 15:26 04/19/23 14:49 04/19/23 14:48 97.5 F L 90 18 95/60 L 92 L 04/19/23 14:25 97.5 F L 90 18 95/60 L 04/19/23 13:30 90 20 99/62 L 95 04/19/23 13:00 94 H 95/52 L 94 L O2 Del Method 04/20/23 12:00 04/20/23 09:00 Room Air 04/20/23 08:00 04/20/23 08:00 Room Air 04/20/23 08:00 Room Air 04/20/23 06:26 Room Air 04/20/23 05:00 Room Air 04/20/23 04:00 04/20/23 03:39 Room Air 04/20/23 03:00 Room Air 04/20/23 01:00 Room Air 04/20/23 00:00 04/20/23 00:00 Room Air 04/19/23 23:00 Room Air 04/19/23 21:00 Room Air 04/19/23 20:00 Room Air 04/19/23 20:00 04/19/23 20:00 Room Air 04/19/23 17:52 Room Air 04/19/23 16:00 04/19/23 15:53 Room Air 04/19/23 15:26 Room Air 04/19/23 14:49 Room Air 04/19/23 14:48 Room Air 04/19/23 14:25 Room Air 04/19/23 13:30 04/19/23 13:00 Intake and Output 04/19/23 04/20/23 04/20/23 23:59 07:59 15:59 Intake Total 1100 / 1100 120 / 120 Output Total 0 / 200 400 / 500 100 / 500 Balance 1100 / 900 -400 / -380 20 / -380 Intake: Intake, Oral Amount 600 / 600 120 / 120 Intake, Total IV Amount 500 / 500 Lactated Ringers 1000ML 1,000 500 / 500 ml @ 100 mls/hr IV .Q10H [facility] Rx #:[id number] Output: Output, Urine Amount 0 / 200 400 / 500 100 / 500 Other: Number of Voids 0 Number of Unmeasured Voids 1 Weight 74.3 kg Patient Weight 04/20/23 23:59 Weight 74.3 kg Laboratory Results - last 24 hr 04/19/23 11:05: Total Counted 100, Neutrophils % (Manual) 85 H, Lymphocytes % (Manual) 14, Monocytes % (Manual) 1 L, Platelet Estimate Normal, Macrocytosis 2+ 04/19/23 14:08: Troponin I 0.17 H 04/19/23 16:50: Troponin I 0.17 H 04/20/23 06:50: WBC 9.4, RBC 4.06 L, Hgb 13.8 L D, Hct 43.5, MCV 106.9 H, MCH 33.8 H, MCHC 31.6 L, RDW 14.6, Plt Count 313, MPV 10.1, Neut % (Auto) 79.8, Lymph % (Auto) 11.7, [place] % (Auto) 6.4, Eos % (Auto) 1.7, Baso % (Auto) 0.3, Neut # (Auto) 7.5, Lymph # (Auto) 1.1, [place] # (Auto) 0.6, Eos # (Auto) 0.2, Baso # (Auto) 0.0, PT 12.2, INR 1.14 H, Sodium 132 L, Potassium 4.8, Chloride 96 L, Carbon Dioxide 25, Anion Gap 15.8 H, BUN 81 H, Creatinine 2.70 H, Estimated Creat Clear 21, Estimated GFR 23 L, Est GFR ( Amer) 27 L, Glucose 103 H, Calcium 9.5, Magnesium 2.8 H, Total Bilirubin 4.7 H, AST 403 H*, ALT 168 H, Alkaline Phosphatase 705 H, Total Protein 6.1 L, Albumin 3.3 L D, Globulin 2.8, Albumin/Globulin Ratio 1.2 I & O for Labs for Last 24 Hours: Intake & Output 04/17/23 04/18/23 04/19/23 04/20/23 23:59 23:59 23:59 23:59 Intake Total 1100 / 1100 120 / 120 Output Total 0 / 200 500 / 500 Balance 1100 / 900 -380 / -380 Weight 74.843 kg 74.3 kg Constitutional: Present no acute distress, average body habitus, chronically ill appearing and cooperative Head: Present atraumatic and normocephalic ENT: Present normal exam Respiratory: Present normal respiratory effort Cardiac: Present Reg Rate and Rhythm GI: Present soft, tenderness (Right upper abdomen), guarding and normal bowel sounds; Absent distention Comments:: Palpable liver edge Extremities: Present normal inspection and full ROM Skin: Present intact; Absent erythema Neuro: Present Grossly Intact, alert, awake, oriented x 3 and moves all extremities Assessment and Plan *Assessment and plan (1) ALVARO (acute kidney injury): Status: Acute Category: Medical Code(s): N17.9 - Acute kidney failure, unspecified (2) Metastatic disease: Status: Acute Qualifiers: Area of secondary neoplastic involvement: unspecified site Qualified Code(s): C79.9 - Secondary malignant neoplasm of unspecified site Category: Medical Code(s): C79.9 - Secondary malignant neoplasm of unspecified site (3) Liver masses: Status: Acute Category: Medical Code(s): R16.0 - Hepatomegaly, not elsewhere classified (4) Pulmonary nodule: Status: Acute Category: Medical Code(s): R91.1 - Solitary pulmonary nodule (5) Right sided abdominal pain: Status: Acute Category: Medical Code(s): R10.9 - Unspecified abdominal pain (6) Elevated LFTs: Status: Acute Category: Medical Code(s): R79.89 - Other specified abnormal findings of blood chemistry (7) Chronic kidney disease, stage 3a: Status: Chronic Category: Medical Code(s): N18.31 - Chronic kidney disease, stage 3a (8) HFrEF (heart failure with reduced ejection fraction): Status: Chronic Category: Medical Code(s): I50.20 - Unspecified systolic (congestive) heart failure (9) Coronary artery disease: Status: Chronic Qualifiers: Coronary Disease-Associated Artery/Lesion type: [place] artery [place] vs. transplanted heart: [place] heart Associated angina: without angina Qualified Code(s): I25.10 - Atherosclerotic heart disease of [place] coronary artery without angina pectoris Category: Medical Code(s): I25.10 - Atherosclerotic heart disease of [place] coronary artery without angina pectoris (10) Pulmonary hypertension: Problem Comment: Follow-up for now. Status: Acute Category: Medical Code(s): I27.20 - Pulmonary hypertension, unspecified (11) Hyperlipidemia: Status: Chronic Qualifiers: Hyperlipidemia type: mixed hyperlipidemia Qualified Code(s): E78.2 - Mixed hyperlipidemia Category: Medical Code(s): E78.5 - Hyperlipidemia, unspecified (12) Cardiomyopathy: Status: Chronic Qualifiers: Cardiomyopathy type: unspecified Qualified Code(s): I42.9 - Cardiomyopathy, unspecified Category: Medical Code(s): I42.9 - Cardiomyopathy, unspecified Plan 87-year-old male with multiple cardiac comorbidities, CKD, BPH. Presented to the ER with worsening fatigue and abdominal pain. In the ER, workup concerning for ALVARO, transaminitis, new finding of metastases to the liver. Discussed case with ER physician, request admission for treatment of ALVARO and further workup of metastases. Medicine agreed to admit. Kidney function remains abnormal. Continues to require patient management. Blood pressure soft and acceptable level of systolics in the 90s. MAP above 65. On room air. Cardiology consulted to assist with care. Problems addressed as follows: Abdominal pain Liver metastases, unknown primary Transaminitis -CT personally reviewed, diffuse infiltration of liver with multiple metastases. Has several small nodules in bilateral lungs. -Interventional radiology biopsy ordered for Saturday. Patient to be referred to Dr. Soto for oncology at [facility]. -Holding statin in the setting of transaminitis, monitor for improvement with fluid resuscitation -INR 1.14. No coagulopathy at this time. - Liver enzymes remain elevated with bilirubin of 4.7, AST 403, ALT 168, alk phos 705. Repeat CBC, CMP, magnesium ordered for the morning -Will consider IV morphine for pain every 4 hours as needed Pulmonary hypertension Heart failure with reduced ejection fraction - Cardiology consulted, appreciate their recommendations. Will hold patient's diuretics and Entresto at this time given soft blood pressure and ALVARO. Tolerating p.o. intake today. - Repeat BMP this afternoon, if kidney function not improving, will consider additional 500 cc bolus of IV fluids. - Repeat echocardiogram obtained, formal read pending to evaluate patient's heart failure - Holding statin due to elevated liver enzymes - Will hold Jardiance until kidney function improves - Continue metoprolol. ALVARO on CKD - Creatinine elevated 2.6, BUN 77 on admission, essentially stable today at BUN of 81 and creatinine of 12.7. Repeat CBC, CMP, magnesium ordered for the morning. BPH: Continue home finasteride and tamsulosin Full code Heparin subcu Regular diet
--- NOTE | 2023-04-20 17:21 | PC.NURSE ---
AOX4, NO COMPLAINTS VOICED. HE HAS DENIED PAIN T/O SHIFT. TOLERATING PO INTAKE WELL. NOT REQUIRING O2 SUPPORT AT THIS TIME.
[2023-04-20 19:17] LABS: Anion Gap 16.6 mEq/L (5-15); Blood Urea Nitrogen 75 mg/dl (9-20); Calcium 9.6 mg/dl (8.4-10.2); Carbon Dioxide 23 mmol/L (22.0-30.0); Chloride 96 mmol/L (98-107); Creatinine Clearance Estimated 22 mL/min (50-200); Estimated Glomerular Filt Rate 24 ml/min (>60); GFR (African American) 29 ML/MIN (>60); Glucose 107 mg/dl (74-100); Potassium 4.6 mmoL/L (3.5-5.1); Sodium 131 mmol/L (136-145)
[2023-04-20] MEDS: TAMSULOSIN 0.4MG CAPSULE 0.400000000000000022 MG PO (21:00)
[2023-04-21] VITALS (7 sets, daily range): BP systolic 80–105; BP diastolic 47–58; PULSE 66–109; RESP 16–20; TEMP 36.3–36.9; O2SAT 92–98; BMI 252640.6
[2023-04-21] MEDS: MORPHINE 2MG/ML SYRINGE 2 MG IV (01:04)
--- NOTE | 2023-04-21 06:23 | PC.NURSE ---
Pt is alert and oriented. Complained of pain 1 time, treated per apr. Pt did eat a sandwich and pudding this shift. Remains room air. Uses urinal independently. Pt complained of his bottom hurting, it is slighting red, barrier cream applied by patient and slept on his side. Pt has had no other complaints throughout shift. Call light in reach.
[2023-04-21 07:41] LABS: Basophils % 0.3 % (0.1-2.0); Eosinophils # 0.2 K/mm3 (0.0-0.4); Eosinophils % 1.6 % (0.1-12.0); Hematocrit 41.3 % (42.0-52.0); Hemoglobin 13.2 g/dL (14.1-18.0); Lymphocytes % 11.5 % (10-50); Mean Corpuscular HGB Conc 31.9 g/dL (31.8-35.4); Mean Corpuscular Hemoglobin 33.5 pg (27.0-31.2); Mean Corpuscular Volume 105.1 fl (80-94); Mean Platelet Volume 9.8 fl (7.4-10.4); Monocytes # 0.5 K/mm3 (0.1-1.0); Monocytes % 5.4 % (1.7-9.3); Neutrophils # 7.4 K/mm3 (1.8-7.8); Neutrophils % 81.3 % (37.0-80.0); Platelet Count 269 K/mm3 (142-424); Red Blood Count 3.93 M/mm3 (4.60-6.20); Red Cell Distribution Width 14.6 % (11.5-17.5); White Blood Count 9.1 K/mm3 (4.8-10.8)
[2023-04-21 07:53] LABS: Alanine Aminotransferase 157 U/L (12-78); Albumin/Globulin Ratio 1.1 (1.1-1.8); Alkaline Phosphatase 703 U/L (38-126); Anion Gap 12.6 mEq/L (5-15); Aspartate Amino Transferase 357 U/L (17-59); Bilirubin,Total 4.6 mg/dl (0.2-1.3); Blood Urea Nitrogen 72 mg/dl (9-20); Calcium 9.1 mg/dl (8.4-10.2); Carbon Dioxide 25 mmol/L (22.0-30.0); Chloride 99 mmol/L (98-107); Creatinine Clearance Estimated 27 mL/min (50-200); Estimated Glomerular Filt Rate 26 ml/min (>60); GFR (African American) 31 ML/MIN (>60); Globulin 2.8 g/dL (1.3-3.2); Glucose 93 mg/dl (74-100); Magnesium 2.5 mg/dl (1.6-2.3); Potassium 4.6 mmoL/L (3.5-5.1); Sodium 132 mmol/L (136-145); Total Protein,Serum 5.8 g/dl (6.3-8.2)
[2023-04-21] MEDS: METOPROLOL SUCCINATE XL 25MG TABLET 12.5 MG PO (08:41)
[2023-04-21] MEDS: HEPARIN SODIUM 5,000 UNIT/ML VIAL 5000 UNIT SQ ×2 (08:41→21:32)
[2023-04-21] MEDS: MINERAL OIL ENEMA 133ML 133 ML RC (14:09)
[2023-04-21] MEDS: POLYETHYLENE GLYCOL 3350 17 GM PACKET PO (14:09)
--- NOTE | 2023-04-21 16:59 | P.PN_ITS ---
Subjective *Date: 04/21/23 *Time: 16:59 Interval history: States he is feeling little better today. On room air. No nausea or vomiting. Belly pain somewhat improved. Marginal improvement in kidney function. Blood pressure stable but soft, tolerating p.o. intake Medical Exam Vital signs and Labs for Last 24 Hours: Vital Signs Temp Pulse Pulse Resp BP Pulse Ox O2 Del Method 04/21/23 16:56 Room Air 04/21/23 16:00 95 H 04/21/23 15:00 Room Air 04/21/23 12:56 Room Air 04/21/23 12:00 90 04/21/23 12:00 92 H 16 105/58 L 96 Room Air 04/21/23 11:00 Room Air 04/21/23 09:00 Room Air 04/21/23 08:00 100 H 04/21/23 08:00 97.4 F L 66 19 80/47 L 98 Room Air 04/21/23 08:00 Room Air 04/21/23 07:00 Room Air 04/21/23 05:00 Room Air 04/21/23 04:00 102 H 04/21/23 04:00 97.8 F 109 H 18 98/51 L 92 L Room Air 04/21/23 03:00 Room Air 04/21/23 01:00 Room Air 04/21/23 00:00 100 H 04/21/23 00:00 98.4 F 87 16 104/52 L 94 L Room Air 04/20/23 22:54 Room Air 04/20/23 21:00 Room Air 04/20/23 20:00 100 H 04/20/23 20:00 Room Air 04/20/23 20:00 98.6 F 98 H 18 107/67 L 94 L Room Air 04/20/23 18:51 Room Air 04/20/23 17:00 Room Air 04/20/23 16:00 98.1 F 96 H 19 109/61 L 96 Room Air 04/20/23 16:00 90 Intake and Output 04/21/23 04/21/23 04/21/23 07:59 15:59 23:59 Intake Total 720 / 720 Output Total 300 / 375 Balance 420 / 345 Intake: Intake, Oral Amount 720 / 720 Output: Output, Urine Amount 300 / 375 Other: Number of Voids Weight Patient Weight 04/22/23 00:59 Weight 84.504 kg Laboratory Results - last 24 hr 04/20/23 18:30: Sodium 131 L, Potassium 4.6, Chloride 96 L, Carbon Dioxide 23, Anion Gap 16.6 H, BUN 75 H, Creatinine 2.60 H, Estimated Creat Clear 22, E stimated GFR 24 L, Est GFR ( Amer) 29 L, Glucose 107 H, Calcium 9.6 04/21/23 06:54: WBC 9.1, RBC 3.93 L, Hgb 13.2 L, Hct 41.3 L, MCV 105.1 H, MCH 33.5 H, MCHC 31.9, RDW 14.6, Plt Count 269, MPV 9.8, Neut % (Auto) 81.3 H, Lymph % (Auto) 11.5, [place] % (Auto) 5.4, Eos % (Auto) 1.6, Baso % (Auto) 0.3, Neut # (Auto) 7.4, Lymph # (Auto) 1.0, [place] # (Auto) 0.5, Eos # (Auto) 0.2, Baso # (Auto) 0.0, Sodium 132 L, Potassium 4.6, Chloride 99, Carbon Dioxide 25, Anion Gap 12.6, BUN 72 H, Creatinine 2.40 H, Estimated Creat Clear 27, Estimated GFR 26 L, Est GFR ( Amer) 31 L, Glucose 93, Calcium 9.1, Magnesium 2.5 H D, Total Bilirubin 4.6 H, AST 357 H*, ALT 157 H, Alkaline Phosphatase 703 H, Total Protein 5.8 L, Albumin 3.0 L, Globulin 2.8, Albumin/Globulin Ratio 1.1 I & O for Labs for Last 24 Hours: Intake & Output 04/18/23 04/19/23 04/20/23 04/22/23 23:59 23:59 23:59 00:59 Intake Total 1100 / 1100 1622 / 1622 720 / 720 Output Total 0 / 200 700 / 700 375 / 375 Balance 1100 / 900 922 / 922 345 / 345 Weight 74.843 kg 74.3 kg 84.504 kg Constitutional: Present no acute distress, average body habitus, chronically ill appearing and cooperative Head: Present atraumatic and normocephalic ENT: Present normal exam Respiratory: Present normal respiratory effort Cardiac: Present Reg Rate and Rhythm GI: Present soft, tenderness (Right upper abdomen, interval improvement), guarding and normal bowel sounds; Absent distention Comments:: Palpable liver edge Extremities: Present normal inspection and full ROM Skin: Present intact; Absent erythema Neuro: Present Grossly Intact, alert, awake, oriented x 3 and moves all extremities Assessment and Plan *Assessment and plan (1) ALVARO (acute kidney injury): Status: Acute Category: Medical Code(s): N17.9 - Acute kidney failure, unspecified (2) Metastatic disease: Status: Acute Qualifiers: Area of secondary neoplastic involvement: unspecified site Qualified Code(s): C79.9 - Secondary malignant neoplasm of unspecified site Category: Medical Code(s): C79.9 - Secondary malignant neoplasm of unspecified site (3) Liver masses: Status: Acute Category: Medical Code(s): R16.0 - Hepatomegaly, not elsewhere classified (4) Pulmonary nodule: Status: Acute Category: Medical Code(s): R91.1 - Solitary pulmonary nodule (5) Right sided abdominal pain: Status: Acute Category: Medical Code(s): R10.9 - Unspecified abdominal pain (6) Elevated LFTs: Status: Acute Category: Medical Code(s): R79.89 - Other specified abnormal findings of blood chemistry (7) Chronic kidney disease, stage 3a: Status: Chronic Category: Medical Code(s): N18.31 - Chronic kidney disease, stage 3a (8) HFrEF (heart failure with reduced ejection fraction): Status: Chronic Category: Medical Code(s): I50.20 - Unspecified systolic (congestive) heart failure (9) Coronary artery disease: Status: Chronic Qualifiers: Coronary Disease-Associated Artery/Lesion type: [place] artery [place] vs. transplanted heart: [place] heart Associated angina: without angina Qualified Code(s): I25.10 - Atherosclerotic heart disease of [place] coronary artery without angina pectoris Category: Medical Code(s): I25.10 - Atherosclerotic heart disease of [place] coronary artery without angina pectoris (10) Pulmonary hypertension: Problem Comment: Follow-up for now. Status: Acute Category: Medical Code(s): I27.20 - Pulmonary hypertension, unspecified (11) Hyperlipidemia: Status: Chronic Qualifiers: Hyperlipidemia type: mixed hyperlipidemia Qualified Code(s): E78.2 - Mixed hyperlipidemia Category: Medical Code(s): E78.5 - Hyperlipidemia, unspecified (12) Cardiomyopathy: Status: Chronic Qualifiers: Cardiomyopathy type: unspecified Qualified Code(s): I42.9 - Cardiomyopathy, unspecified Category: Medical Code(s): I42.9 - Cardiomyopathy, unspecified Plan 87-year-old male with multiple cardiac comorbidities, CKD, BPH. Presented to the ER with worsening fatigue and abdominal pain. In the ER, workup concerning for ALVARO, transaminitis, new finding of metastases to the liver. Discussed case with ER physician, request admission for treatment of ALVARO and further workup of metastases. Medicine agreed to admit. Kidney function remains abnormal. Continues to require patient management. Blood pressure soft and acceptable level of systolics in the 90s. MAP above 65. On room air. Cardiology consulted to assist with care. Problems addressed as follows: Abdominal pain Liver metastases, unknown primary Transaminitis -Interventional radiology biopsy ordered for Saturday (earliest available time slot). Patient to be referred to Dr. Soto for oncology at [facility]. -Holding statin in the setting of transaminitis, monitor for improvement with fluid resuscitation -INR 1.14. No coagulopathy at this time. -Liver enzymes remain elevated with bilirubin 4.6, AST 357, ALT 157, alk phos 703. Combined hepatobiliary pattern. Repeat CBC, CMP, magnesium ordered for the morning -Will consider IV morphine for pain every 4 hours as needed Pulmonary hypertension Heart failure with reduced ejection fraction - Cardiology consulted, appreciate their recommendations. Will hold patient's diuretics and Entresto at this time given soft blood pressure and ALVARO. Tolerating p.o. intake today. - Repeat echocardiogram obtained, formal read pending to evaluate patient's heart failure - Holding statin due to elevated liver enzymes - Will hold Jardiance until kidney function improves - Continue metoprolol. ALVARO on CKD -Creatinine 2.4 this morning, BUN decreased to 72. Seeing marginal improvement with fluids. Tolerating p.o. fluids, will hold on further IV fluids given patient's heart failure. BPH: Continue home finasteride and tamsulosin Full code Heparin subcu Regular diet
[2023-04-21] MEDS: FINASTERIDE 5MG TABLET 5 MG PO (21:32)
[2023-04-21] MEDS: SENNOSIDES 8.6MG/DOCUSATE 50MG TABLET 1 TAB PO (21:32)
[2023-04-21] MEDS: TAMSULOSIN 0.4MG CAPSULE 0.400000000000000022 MG PO (21:32)
[2023-04-21] MEDS: SODIUM CHLORIDE 0.9% 10ML FLUSH SYRINGE 10 ML IV (21:33)
[2023-04-22] VITALS (10 sets, daily range): BP systolic 84–106; BP diastolic 41–61; PULSE 68–122; RESP 16–18; TEMP 36.4–36.8; O2SAT 90–98; BMI 24.6
--- NOTE | 2023-04-22 03:54 | PC.NURSE ---
pt reported that he has been noticing hes choking on water and it hurts when he tries to clear his throat. o2 sats wnl, no gurgling noted, speech clear. reported to igor White aprn. no new orders received
--- NOTE | 2023-04-22 05:35 | CA_ITS ---
APPROVED REPORT EXAM: Comprehensive 2D, Doppler, and color-flow Echocardiogram Microbiology Lab Analyst: Ariadna Black CRT Ht: 6 ft 0 in Wt: 182lbs BSA: 2.05 BP: 99/62 mmHg Indications: Congestive Heart Failure, Hyperlipidemia, Hypertension/HDD, Mets Ca new Dx,cm ef 45% 02/07/23 TDE limited images due to lung interference. 2D Dimensions Left Atrium 3.58 cm EF AP4 42.60 % LVOT 2.00 cm (M/F) 1.5-2.5 GL Strain -4.0 % M-Mode Dimensions RVDd 2.51 cm (0.9-2.6) LVDd 5.36 cm (3.5-5.7) Ao Diam 3.86 cm (2.0-3.7) LVDs 4.22 cm (3.5-5.7) IVSd 1.03 cm (0.6-1.1) PWd 1.10 cm (0.6-1.1) EF (Teich) 42.80% FS 21.30% EDV (Teich) 138.90 mL ESV (Teich) 79.50 mL LV Diastology E Decel Time 150 (160-240 msec) E/A Ratio 0.64 Aortic Valve AoV Peak Aiden. 99.0 (50-130 cm/s) AO Peak GR. 4.00 mmHg Mitral Valve MV E Max Aiden. 44.0 (40-130 cm/s) MV A Velocity 68.0 (40-130 cm/s) E/A Ratio 0.64 MV Decel. Time 150 (160-240 ms) Tricuspid Valve TR P. Velocity 112.00 cm/s RAP Estimate 10.00 mmHg RVSP 15.00 mmHg Left Ventricle The left ventricle is normal size. The left ventricular systolic function is mildly reduced. There is increased LV wall thickness. The septum is asynchronous. Grade 1 diastolic dysfunction. LVEF is 45%. Right Ventricle The right ventricle is normal size. The right ventricular systolic function is normal. Atria The left atrium size is normal. The right atrium size is normal. There is no Doppler evidence of interatrial shunt. Aortic Valve The aortic valve is mildly thickened. There is no aortic valvular stenosis. Trace aortic regurgitation. Mitral Valve The mitral valve is normal in structure. No evidence of mitral valve stenosis. Trace mitral regurgitation. Tricuspid Valve The tricuspid valve leaflets are thin and pliable. Trace tricuspid regurgitation. There is insufficient TR jet to estimate RVSP. Pulmonic Valve The pulmonary valve is not well visualized. Trace pulmonic regurgitation. Great Vessels The aortic root is not well visualized. IVC is normal in size and collapses >50% with inspiration. Pericardium There is no pericardial effusion. Other Information Study Quality: Technically Difficult Conclusion Technically difficult study due to poor accoustic windows. Mildly reduced LV systolic function (LVEF 45%). No significant valvular stenosis or regurgitation. Electronically signed by : Marina Cid MD 04/23/2023 20:24:58
--- NOTE | 2023-04-22 06:07 | EXP.CARD.PN ---
Subjective Subjective Date: 04/22/23 Time: 08:00 Principal diagnosis: RUQ pain with metastatic disease to liver and lungs Interval history: Patient resting, complaining of heart burn because isn't getting omeprazole. Denies chest pain. Reports soa has improved. Morning labs reviewed. Biopsy scheduled for tomorrow. Exam Data for Last 24 hours Vital signs and Labs for Last 24 Hours: Temp Pulse Resp BP Pulse Ox O2 Del Method 98.1 F 122 H 16 106/47 L 94 L Room Air 04/22/23 04:00 04/22/23 04:56 04/22/23 04:00 04/22/23 04:00 04/22/23 04:00 04/22/23 05:00 Laboratory Results - last 24 hr 04/21/23 06:54: WBC 9.1, RBC 3.93 L, Hgb 13.2 L, Hct 41.3 L, MCV 105.1 H, MCH 33.5 H, MCHC 31.9, RDW 14.6, Plt Count 269, MPV 9.8, Neut % (Auto) 81.3 H, Lymph % (Auto) 11.5, [place] % (Auto) 5.4, Eos % (Auto) 1.6, Baso % (Auto) 0.3, Neut # (Auto) 7.4, Lymph # (Auto) 1.0, [place] # (Auto) 0.5, Eos # (Auto) 0.2, Baso # (Auto) 0.0, Sodium 132 L, Potassium 4.6, Chloride 99, Carbon Dioxide 25, Anion Gap 12.6, BUN 72 H, Creatinine 2.40 H, Estimated Creat Clear 27, Estimated GFR 26 L, Est GFR ( Amer) 31 L, Glucose 93, Calcium 9.1, Magnesium 2.5 H D, Total Bilirubin 4.6 H, AST 357 H*, ALT 157 H, Alkaline Phosphatase 703 H, Total Protein 5.8 L, Albumin 3.0 L, Globulin 2.8, Albumin/Globulin Ratio 1.1 I & O for Last 24 hours: Intake & Output 04/19/23 04/20/23 04/21/23 04/22/23 22:59 22:59 23:59 23:59 Intake Total Output Total 500 / 500 Balance -500 / -500 Weight 182 lb 3 oz Constitutional Constitutional: no acute distress *Routine Respiratory Exam Respiratory: Present CTA bilaterally and symmetric chest movement *Routine Cardiovascular Exam Cardiovascular: Present RRR, Normal S1 and Normal S2 *Routine Abdominal Exam Abdominal: Present soft, normoactive bowel sounds and tenderness *Routine Extremities Exam Extremities: Present full ROM and normal capillary refill; Absent edema *Routine Skin Exam Skin: Present intact, dry, warm and jaundice Detailed Neck Exam: Thyroids Thyroid: Absent bruit Progress Note: A&P Assessment and plan (1) ALVARO (acute kidney injury): Status: Acute (2) Metastatic disease: Status: Acute (3) Liver masses: Status: Acute (4) Pulmonary nodule: Status: Acute (5) Right sided abdominal pain: Status: Acute (6) Elevated LFTs: Status: Acute (7) Chronic kidney disease, stage 3a: Status: Chronic (8) HFrEF (heart failure with reduced ejection fraction): Status: Chronic (9) Coronary artery disease: Status: Chronic (10) Pulmonary hypertension: Problem details: Follow-up for now. 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 Patient underwent a CT abdomen pelvis which showed pulmonary and hepatic metastatic disease. Patient was admitted for further management and is scheduled to undergo biopsy tomorrow. RUQ pain Liver and lung metastic disease Elevated liver enzymes - Defer to primary service History of HFrEF Nonischemic dilated cardiomyopathy -Ejection fraction 45% -Currently holding Entresto, Aldactone, Lasix and Jardiance due to hypotension/weakness/ALVARO. -No signs of volume overload noted -Repeat echo pending but prelim shows ef of 45 with no significant change noted. Official read is pending. -Continue metoprolol succinate 25mg daily Nonobstructive coronary artery disease -Per left heart cath 11/2022 -statin on hold due to elevated liver enzymes Acute on Chronic renal insufficiency -Creatinine 2 today improved from 2.7 04/22/2023: Official read is pending, patient is scheduled for biopsy tomorrow.
[2023-04-22 06:26] LABS: Basophils % 0.4 % (0.1-2.0); Eosinophils # 0.1 K/mm3 (0.0-0.4); Eosinophils % 1.4 % (0.1-12.0); Hematocrit 42.8 % (42.0-52.0); Hemoglobin 13.6 g/dL (14.1-18.0); Lymphocytes # 0.9 K/mm3 (0.7-4.5); Lymphocytes % 8.7 % (10-50); Mean Corpuscular HGB Conc 31.7 g/dL (31.8-35.4); Mean Corpuscular Hemoglobin 34.1 pg (27.0-31.2); Mean Corpuscular Volume 107.8 fl (80-94); Mean Platelet Volume 10.4 fl (7.4-10.4); Monocytes # 0.6 K/mm3 (0.1-1.0); Monocytes % 5.5 % (1.7-9.3); Neutrophils # 8.3 K/mm3 (1.8-7.8); Platelet Count 250 K/mm3 (142-424); Red Blood Count 3.97 M/mm3 (4.60-6.20); Red Cell Distribution Width 15.2 % (11.5-17.5); White Blood Count 9.9 K/mm3 (4.8-10.8)
[2023-04-22 06:29] LABS: Alanine Aminotransferase 162 U/L (12-78); Albumin Level 3.2 g/dl (3.5-5.0); Albumin/Globulin Ratio 1.1 (1.1-1.8); Alkaline Phosphatase 743 U/L (38-126); Anion Gap 12.7 mEq/L (5-15); Aspartate Amino Transferase 390 U/L (17-59); Bilirubin,Total 4.9 mg/dl (0.2-1.3); Blood Urea Nitrogen 63 mg/dl (9-20); Calcium 9.1 mg/dl (8.4-10.2); Carbon Dioxide 24 mmol/L (22.0-30.0); Chloride 99 mmol/L (98-107); Creatinine Clearance Estimated 32 mL/min (50-200); Estimated Glomerular Filt Rate 32 ml/min (>60); GFR (African American) 39 ML/MIN (>60); Globulin 2.8 g/dL (1.3-3.2); Glucose 82 mg/dl (74-100); Potassium 4.7 mmoL/L (3.5-5.1); Sodium 131 mmol/L (136-145)
[2023-04-22 07:12] LABS: Magnesium 2.3 mg/dl (1.6-2.3)
[2023-04-22] MEDS: POLYETHYLENE GLYCOL 3350 17 GM PACKET PO (09:27)
[2023-04-22] MEDS: METOPROLOL SUCCINATE XL 25MG TABLET 25 MG PO (09:27)
[2023-04-22] MEDS: SENNOSIDES 8.6MG/DOCUSATE 50MG TABLET 1 TAB PO ×2 (09:28→21:58)
[2023-04-22] MEDS: VITAMIN B-12 1,000 MCG 1ML VIAL 1000 MCG IM (09:29)
[2023-04-22] MEDS: HEPARIN SODIUM 5,000 UNIT/ML VIAL 5000 UNIT SQ (09:29)
[2023-04-22] MEDS: PANTOPRAZOLE 40MG TABLET 40 MG PO (09:32)
[2023-04-22] MEDS: MINERAL OIL ENEMA 133ML 133 ML RC (10:39)
--- NOTE | 2023-04-22 13:10 | P.PN_ITS ---
Subjective *Date: 04/22/23 *Time: 13:54 Interval history: Feeling okay this morning, on room air. Family at bedside. Discussed case with son in law and daughter at bedside along with patient. Tolerating p.o. intake but still no bowel movement. Afebrile. Having bad heartburn this morning. Blood pressure within goal. Liver enzymes remain elevated. Patient alert and oriented x 3 Medical Exam Vital signs and Labs for Last 24 Hours: Vital Signs Temp Pulse Pulse Resp BP Pulse Ox O2 Del Method 04/22/23 12:00 97.5 F L 89 18 103/61 L 97 Room Air 04/22/23 11:00 Room Air 04/22/23 09:00 Room Air 04/22/23 08:00 94 L Room Air 04/22/23 08:00 97.9 F 116 H 18 105/60 L 94 L Room Air 04/22/23 07:00 Room Air 04/22/23 05:00 Room Air 04/22/23 04:56 122 H 04/22/23 04:00 98.1 F 96 H 16 106/47 L 94 L Room Air 04/22/23 03:00 Room Air 04/22/23 01:00 112 H 04/22/23 01:00 Room Air 04/22/23 00:00 98.1 F 89 16 88/54 L 98 Room Air 04/21/23 23:00 Room Air 04/21/23 22:40 Room Air 04/21/23 21:00 Room Air 04/21/23 20:30 87 04/21/23 20:00 87 04/21/23 20:00 97.6 F 88 16 103/57 L 96 Room Air 04/21/23 18:11 Room Air 04/21/23 16:56 Room Air 04/21/23 16:00 68 20 88/48 L 98 Room Air 04/21/23 16:00 95 H 04/21/23 15:00 Room Air Intake and Output 04/21/23 04/22/23 04/22/23 23:59 07:59 15:59 Intake Total 360 / 1080 375 / 375 Output Total 1200 / 1575 500 / 500 Balance -840 / -495 -500 / -125 375 / -125 Intake: Intake, Oral Amount 360 / 1080 375 / 375 Output: Output, Urine Amount 1200 / 1575 500 / 500 Other: Number of Voids 3 0 Number of Unmeasured Voids 1 Weight 84.504 kg 82.639 kg Patient Weight 04/22/23 23:59 Weight 82.639 kg Laboratory Results - last 24 hr 04/22/23 05:43: WBC 9.9, RBC 3.97 L, Hgb 13.6 L, Hct 42.8, MCV 107.8 H, MCH 34.1 H, MCHC 31.7 L, RDW 15.2, Plt Count 250, MPV 10.4, Neut % (Auto) 84.0 H, Lymph % (Auto) 8.7 L, [place] % (Auto) 5.5, Eos % (Auto) 1.4, Baso % (Auto) 0.4, Neut # (Auto) 8.3 H, Lymph # (Auto) 0.9, [place] # (Auto) 0.6, Eos # (Auto) 0.1, Baso # (Auto) 0.0, Sodium 131 L, Potassium 4.7, Chloride 99, Carbon Dioxide 24, Anion Gap 12.7, BUN 63 H, Creatinine 2.00 H, Estimated Creat Clear 32, Estimated GFR 32 L, Est GFR ( Amer) 39 L D, Glucose 82, Calcium 9.1, Magnesium 2.3, Total Bilirubin 4.9 H, AST 390 H*, ALT 162 H, Alkaline Phosphatase 743 H, Total Protein 6.0 L, Albumin 3.2 L, Globulin 2.8, Albumin/Globulin Ratio 1.1 I & O for Labs for Last 24 Hours: Intake & Output 04/19/23 04/20/23 04/21/23 04/22/23 22:59 22:59 23:59 23:59 Intake Total 375 / 375 Output Total 500 / 500 Balance -125 / -125 Weight 82.639 kg Constitutional: Present no acute distress, average body habitus, chronically ill appearing and cooperative Head: Present atraumatic and normocephalic ENT: Present normal exam Respiratory: Present normal respiratory effort Cardiac: Present Reg Rate and Rhythm GI: Present soft, tenderness (Right upper abdomen, interval improvement), guarding and normal bowel sounds; Absent distention Comments:: Palpable liver edge Extremities: Present normal inspection and full ROM Skin: Present intact; Absent erythema Neuro: Present Grossly Intact, alert, awake, oriented x 3 and moves all extremities Assessment and Plan *Assessment and plan (1) ALVARO (acute kidney injury): Status: Acute Category: Medical Code(s): N17.9 - Acute kidney failure, unspecified (2) Metastatic disease: Status: Acute Qualifiers: Area of secondary neoplastic involvement: unspecified site Qualified Code(s): C79.9 - Secondary malignant neoplasm of unspecified site Category: Medical Code(s): C79.9 - Secondary malignant neoplasm of unspecified site (3) Liver masses: Status: Acute Category: Medical Code(s): R16.0 - Hepatomegaly, not elsewhere classified (4) Pulmonary nodule: Status: Acute Category: Medical Code(s): R91.1 - Solitary pulmonary nodule (5) Right sided abdominal pain: Status: Acute Category: Medical Code(s): R10.9 - Unspecified abdominal pain (6) Elevated LFTs: Status: Acute Category: Medical Code(s): R79.89 - Other specified abnormal findings of blood chemistry (7) Chronic kidney disease, stage 3a: Status: Chronic Category: Medical Code(s): N18.31 - Chronic kidney disease, stage 3a (8) HFrEF (heart failure with reduced ejection fraction): Status: Chronic Category: Medical Code(s): I50.20 - Unspecified systolic (congestive) heart failure (9) Coronary artery disease: Status: Chronic Qualifiers: Coronary Disease-Associated Artery/Lesion type: [place] artery [place] vs. transplanted heart: [place] heart Associated angina: without angina Qualified Code(s): I25.10 - Atherosclerotic heart disease of [place] coronary artery without angina pectoris Category: Medical Code(s): I25.10 - Atherosclerotic heart disease of [place] coronary artery without angina pectoris (10) Pulmonary hypertension: Problem Comment: Follow-up for now. Status: Acute Category: Medical Code(s): I27.20 - Pulmonary hypertension, unspecified (11) Hyperlipidemia: Status: Chronic Qualifiers: Hyperlipidemia type: mixed hyperlipidemia Qualified Code(s): E78.2 - Mixed hyperlipidemia Category: Medical Code(s): E78.5 - Hyperlipidemia, unspecified (12) Cardiomyopathy: Status: Chronic Qualifiers: Cardiomyopathy type: unspecified Qualified Code(s): I42.9 - Cardi omyopathy, unspecified Category: Medical Code(s): I42.9 - Cardiomyopathy, unspecified Plan 87-year-old male with multiple cardiac comorbidities, CKD, BPH. Presented to the ER with worsening fatigue and abdominal pain. In the ER, workup concerning for ALVARO, transaminitis, new finding of metastases to the liver. Discussed case with ER physician, request admission for treatment of ALVARO and further workup of metastases. Medicine agreed to admit. Kidney function remains abnormal. Continues to require inpatient management. Pressure doing better. Heart rate little fast today, increasing metoprolol. On room air. Kidney function improving. Anticipate discharge in the next day or 2. Plan for liver biopsy in the morning. Problems addressed as follows: Abdominal pain Liver metastases, unknown primary Transaminitis -Interventional radiology biopsy ordered for tomorrow morning. Patient to be referred to Dr. Soto for oncology at [facility]. -Holding statin in the setting of transaminitis, monitor for improvement with fluid resuscitation -Holding anticoagulation in the setting of liver biopsy tomorrow -INR ordered for the morning. Liver enzymes remain elevated with bili of 4.9, AST 390, ALT 162, alk phos 743. Repeat CBC, CMP, magnesium ordered for the morning. No overt bleeding. Platelets normal at 250. Pulmonary hypertension Heart failure with reduced ejection fraction - Cardiology consulted, appreciate their recommendations. Will hold patient's diuretics, Jardiance, and Entresto at this time given soft blood pressure and ALVARO. Tolerating p.o. intake today. - Repeat echocardiogram obtained, formal read pending to evaluate patient's heart failure - Holding statin due to elevated liver enzymes - Continue metoprolol, increase dosage to 25 mg daily succinate -Cardiology signing off today. ALVARO on CKD -Creatinine 2.0 this morning, BUN decreased to 63. Tolerating p.o. fluids, will hold on further IV fluids given patient's heart failure. Baseline approximately 1.6. Constipation: Enema this morning, no bowel movement since admission. Tolerating p.o. regimen with docusate twice daily. Passing gas. Reviewed CT from admission, no overt obstruction. BPH: Continue home finasteride and tamsulosin Full code Heparin subcu on hold pending biopsy tomorrow Regular diet
--- NOTE | 2023-04-22 13:37 | HMH.PTEV ---
Physical Therapy Evaluation Rehab PT IP Evaluation Start: 04/22/23 12:49 Freq: ONCE Status: Active Protocol: Document 04/22/23 13:32 [facility] (Rec: 04/22/23 13:37 [facility] [email or web address]) Subjective/History History History Per H&P: Mr. Carpenter is an 87-year- old male with history of CHF, CKD, BPH who presented to the ER due to worsening right upper quadrant pain and weakness over the past 3 to 4 days. Reports he was supposed to establish with Dr. Soto ( oncology) today for his anemia but was too weak and fatigued and came to the ER for evaluation. On presentation he is complaining of weakness and fatigue. Tender to palpation right upper quadrant . Has had some increased shortness of breath with exertion over the past few days. Worse than his normal dyspnea which has been going on for several months. Denies any nausea, vomiting, diarrhea. No fever or chills. Workup in the ER concerning initially for elevated LFTs. Further workup including imaging of abdomen showed diffuse infiltration of his liver with multiple pulmonary nodules and lesions on his kidneys. Patient also noted to have acute on chronic kidney injury. In light of his multiple findings, weakness, organ dysfunction, medicine was consulted for admission and further management. Subjective Subjective PLOF per pt report: IND with ADLs and functional mobility without use of AD. Stairs in home but wishes to put a bed on the first floor to avoid steps. New diagnosis of cancer in past 12 No months? Rehab PT IP Eval Objective Appearance Patient Behavior Appropriate,Cooperative Patient Orientation Person,Place Difficulty following instructions none Speech Pattern Clear Ambulation Patient Able to Ambulate Yes Ambulation Observation IP General Gait Pattern Observation Wide Based Gait Ambulation Distance (feet) 20 Ambulation Assistive Device Rolling Walker Ambulation Ability Contact Guard/Hand Hold Transfers Sit to Stand Chair Transfer Ability Minimal x 1 (25% assist) Rehab PT IP prob,goals,plan Problems Date of Evaluation: 04/22/23 PT IP Problems Transfers,Gait,Balance,Self care,Safety Rehab Potential Rehab Potential Good Equipment Needs Assistive Devices Rolling / Wheeled Walker Plan Other Intervention Plan 1-2 times PT Plan Frequency Daily Duration LOS Discharge Goals Sit to Stand Chair Transfer Ability Supervision/Stand by Ambulation Assistive Device Rolling Walker Ambulation Distance (feet) 30 Discharge Plan PT Discharge Plan Pt safe to d/c home when deemed medically necessary d/t current level of mobility, home set-up, and family support. Pt would benefit from skilled PT while at [facility] to prevent further functional decline and maximize safety with mobility. PT recommending PT services to address deficits upon d/c from [facility]. Eval Complexity Eval Charge Codes 59399 - High Complexity PHYSICIAN CERTIFICATION: I certify the specified therapy services for Chase Carpenter are required, authorized, and reviewed every 30 days.
--- NOTE | 2023-04-22 13:43 | HMH.OTEV ---
OT Inpatient Evaluation Rehab OT IP Evaluation Start: 04/22/23 12:49 Freq: ONCE Status: Active Protocol: Document 04/22/23 13:36 [facility] (Rec: 04/22/23 13:43 [facility] [id number]) Rehab OT IP Assessment Subjective History Pt oriented x 3 on arrival. Pt agreeable to engage in therapy evaluation. Pt was admitted on 04/20/23 due to abdominal pain, ALVARO, and CHF. History and Physical report: 87-year-old male with multiple cardiac comorbidities, CKD, BPH. Presented to the ER with worsening fatigue and abdominal pain. In the ER, workup concerning for ALVARO, transaminitis, new finding of metastases to the liver. Discussed case with ER physician, request admission for treatment of ALVARO and further workup of metastases. Medicine agreed to admit. Kidney function remains abnormal. Continues to require patient management. Blood pressure soft and acceptable level of systolics in the 90s. MAP above 65. On room air. Cardiology consulted to assist with care. Subjective I am normally very active. Pt reports prior to being in the hospital, he lived at home with his . Pt claims normally he is independent with all ADLs and IADLs. He also still works driving a semi. Recently since coming to the hospital, he has been using rolling walker during functional transfers. Objective Patient Orientation Person,Place,Birthday Right Upper Extremity Gross ROM WFL Left Upper Extremity Gross ROM WFL Transfer Training Sit/Stand Transfer Assist Level Minimal x 1 (25% assist) Chair Transfer Ability Minimal x 1 (25% assist) Chair Transfer Technique Sit to/from Ambulatory Chair Transfer Assistive Devices Rolling Walker Lower Body Dressing Ability Moderate Assistance Rehab OT IP prob,goals,plan Problems Date of Evaluation: 04/22/23 OT IP Problems Bed Mobility,Transfers,Balance ,Self care,Safety Rehab Potential Rehab Potential Good Equipment Needs Assistive Devices Rolling / Wheeled Walker Plan OT intervention Plan Bed Mobility,Transfers,Balance ,Self care,Safety,Therapeutic Exercise OT Plan Frequency Daily Duration LOS Discharge Goals Bed Mobility Ability Assistance x1 Sit to Stand Chair Transfer Ability Contact Guard/Hand Hold Chair Transfer Ability Contact Guard/Hand Hold Chair Transfer Technique Sit to/from Ambulatory Chair Transfer Assistive Devices Rolling Walker Feeding Ability Assist with Tray Set Up Lower Body Dressing Ability Minimal Assistance Upper Body Dressing Ability Standby Assistance Bathing Ability Moderate Assistance Performing Toilet Hygiene Ability Contact Guard Overall Commode/Toilet Transfer Ability Contact Guard Commode/Toilet Transfer Technique Sit to/from Ambulatory Commode/Toilet Transfer Assistive Grab Bars Devices Oral Care Assist Standby Assistance Decrease in Endurance Yes Discharge Plan OT Discharge Plan Pt will continue to be seen for OT services while at [facility]. Pt can return home with once she is medically stable per physician. Therapist recommends OT evaluation upon returning home. Eval Complexity Eval Charge Codes 23821 - Moderate Complexity PHYSICIAN CERTIFICATION: I certify the specified therapy services for Chase Carpenter are required, authorized, and reviewed every 30 days.
[2023-04-22] MEDS: CALCIUM CARBONATE 500MG CHEWTAB 500 MG PO (14:02)
[2023-04-22 14:22] LABS: Basophils # 0.1 K/mm3 (0-0.2); Basophils % 0.4 % (0.1-2.0); Eosinophils # 0.2 K/mm3 (0.0-0.4); Eosinophils % 1.7 % (0.1-12.0); Hematocrit 44.9 % (42.0-52.0); Hemoglobin 14.4 g/dL (14.1-18.0); Lymphocytes # 1.2 K/mm3 (0.7-4.5); Lymphocytes % 9.6 % (10-50); Mean Corpuscular HGB Conc 32.1 g/dL (31.8-35.4); Mean Corpuscular Hemoglobin 33.8 pg (27.0-31.2); Mean Corpuscular Volume 105.5 fl (80-94); Mean Platelet Volume 9.7 fl (7.4-10.4); Monocytes # 0.5 K/mm3 (0.1-1.0); Monocytes % 3.9 % (1.7-9.3); Neutrophils # 10.3 K/mm3 (1.8-7.8); Neutrophils % 84.4 % (37.0-80.0); Platelet Count 291 K/mm3 (142-424); Red Blood Count 4.26 M/mm3 (4.60-6.20); White Blood Count 12.2 K/mm3 (4.8-10.8)
[2023-04-22 14:41] LABS: INR 1.19 (0.9-1.1); Prothrombin Time 12.7 seconds (10.1-12.5)
[2023-04-22 14:42] LABS: INR 1.17 (0.9-1.1); Prothrombin Time 12.5 seconds (10.1-12.5)
--- NOTE | 2023-04-22 18:08 | CARE MANAGER ---
Addendum entered by Nancy De Dios 04/24/23 10:56: Jes muniz/ [facility] stated that services will begin this week for this patient. Addendum entered by Nancy De Dios 04/24/23 09:13: Patient information/order has been faxed to [facility]: I will follow up once information is reviewed. [facility] fax number [phone] phone [phone] Addendum entered by Denita Garcia RN 04/23/23 08:56: Contacted [facility] they cannot provide a hospital bed as they do not provide hospital beds for Medicare or Medicare replacement patients. Contacted to find a different DME company. She states her friend has all the DME equipment she needs and will not need me to get anything for her. Provided her with my name and number in case she does end up needing something. The only agency available for home health is [employer]. [place] Includes [facility] due to payer and availability of home health staff. The patient's is not comfortable with [facility], but will give them a try since they are the only ones available. Information will be faxed to [facility] when ordered. Addendum entered by Denita Garcia RN 04/22/23 18:11: They do not have a preference for home health providers. Original Note: Spoke with patient's who requests any DME they can get including a hospital bed, BSC, and walker. They prefer to use [facility] in [place] at [phone].T
[2023-04-22] MEDS: FINASTERIDE 5MG TABLET 5 MG PO (21:58)
[2023-04-22] MEDS: TAMSULOSIN 0.4MG CAPSULE 0.400000000000000022 MG PO (21:58)
[2023-04-23] VITALS (24 sets, daily range): BP systolic 76–105; BP diastolic 40–65; PULSE 68–110; RESP 16–18; TEMP 36.4–37.2; O2SAT 93–99; BMI 25.5
--- NOTE | 2023-04-23 06:00 | CT_ITS ---
FINAL REPORT CLINICAL HISTORY: ct guided liver biopsy. liver masses FINDINGS: CT GUIDE LIVER BIOPSY. HISTORY: Liver mass ATTENDING PHYSICIAN: Dr. Navas PHYSICIAN LEADERSHIP DEVELOPMENT INSTRUCTOR: Anthony Dimas PA-C PROCEDURE: After informed consent was obtained and a timeout was performed, the patient was prepped and draped in usual sterile fashion over the right lateral abdomen. Utilizing local anesthesia and sterile technique with a coaxial system, access to the lesion was obtained. 6 18-gauge core biopsy passes were made. Diagnostic material was confirmed by pathology. Post biopsy films demonstrate no apparent complication. Conscious sedation was provided by anesthesia.The patient tolerated the procedure well and left the department in good condition. IMPRESSION: Status post CT-guided biopsy of a liver mass without complication. Films reviewed , interpreted and dictated by Dr. Navas Transcribed by Anthony Dimas PA-C. Reviewed, Interpreted and Dictated by Dm Navas III, MD Transcribed by CECILE Michelle Authenticated and [facility]
[2023-04-23 06:43] LABS: Red Cell Distribution Width 15.2 % (11.5-17.5)
[2023-04-23 06:44] LABS: INR 1.22 (0.9-1.1)
[2023-04-23 06:46] LABS: Activated Partial Thrombo Time 28.3 seconds (22.8-30.6)
[2023-04-23 06:48] LABS: Alanine Aminotransferase 158 U/L (12-78); Albumin Level 2.9 g/dl (3.5-5.0); Alkaline Phosphatase 670 U/L (38-126); Anion Gap 14.9 mEq/L (5-15); Aspartate Amino Transferase 365 U/L (17-59); Bilirubin,Total 5.1 mg/dl (0.2-1.3); Blood Urea Nitrogen 58 mg/dl (9-20); Calcium 9.1 mg/dl (8.4-10.2); Carbon Dioxide 22 mmol/L (22.0-30.0); Chloride 98 mmol/L (98-107); Creatinine Clearance Estimated 33 mL/min (50-200); Estimated Glomerular Filt Rate 32 ml/min (>60); GFR (African American) 39 ML/MIN (>60); Globulin 2.8 g/dL (1.3-3.2); Glucose 84 mg/dl (74-100); Potassium 4.9 mmoL/L (3.5-5.1); Sodium 130 mmol/L (136-145); Total Protein,Serum 5.7 g/dl (6.3-8.2)
[2023-04-23 06:54] LABS: Basophils % 0.3 % (0.1-2.0); Eosinophils # 0.1 K/mm3 (0.0-0.4); Eosinophils % 1.3 % (0.1-12.0); Hematocrit 40.9 % (42.0-52.0); Lymphocytes # 1.1 K/mm3 (0.7-4.5); Lymphocytes % 10.4 % (10-50); Mean Corpuscular HGB Conc 31.7 g/dL (31.8-35.4); Mean Corpuscular Hemoglobin 33.6 pg (27.0-31.2); Mean Corpuscular Volume 105.8 fl (80-94); Mean Platelet Volume 10.7 fl (7.4-10.4); Monocytes # 0.6 K/mm3 (0.1-1.0); Neutrophils # 8.5 K/mm3 (1.8-7.8); Platelet Count 238 K/mm3 (142-424); Red Blood Count 3.87 M/mm3 (4.60-6.20); White Blood Count 10.4 K/mm3 (4.8-10.8)
--- NOTE | 2023-04-23 09:09 | PC.NURSE ---
. aware of pt's bp of 84/47, P:95, will continue to monitor.
--- NOTE | 2023-04-23 10:09 | PC.NURSE ---
. aware of pt's bp of 76/40 aox4.
[2023-04-23] MEDS: PANTOPRAZOLE 40MG TABLET 40 MG PO (12:09)
[2023-04-23] MEDS: METOPROLOL SUCCINATE XL 25MG TABLET 25 MG PO (12:09)
--- NOTE | 2023-04-23 13:04 | P.PN_ITS ---
Subjective Subjective Date: 04/23/23 Time: 08:00 Principal diagnosis: RUQ pain with metastatic disease to liver and lungs Interval history: s/p liver biopsy this morning. morning labs reviewed. Exam Data for Last 24 hours Vital signs and Labs for Last 24 Hours: Temp Pulse Resp BP Pulse Ox O2 Del Method O2 Flow Rate 97.6 F 107 H 16 105/51 L 94 L Room Air 4 04/23/23 12:05 04/23/23 12:05 04/23/23 12:05 04/23/23 12:04/23/23 12:04/23/23 12:23 04/23/23 08:40 Laboratory Results - last 24 hr 04/22/23 14:14: WBC 12.2 H, RBC 4.26 L, Hgb 14.4, Hct 44.9, MCV 105.5 H, MCH 33.8 H, MCHC 32.1, RDW 15.0, Plt Count 291, MPV 9.7, Neut % (Auto) 84.4 H, Lymph % (Auto) 9.6 L, [place] % (Auto) 3.9, Eos % (Auto) 1.7, Baso % (Auto) 0.4, Neut # (Auto) 10.3 H, Lymph # (Auto) 1.2, [place] # (Auto) 0.5, Eos # (Auto) 0.2, Baso # (Auto) 0.1, PT 12.5 04/22/23 14:14: PT 12.7 H, INR 1.17 H 04/22/23 14:14: INR 1.19 H, APTT 29.0 04/23/23 05:48: WBC 10.4, RBC 3.87 L, Hgb 13.0 L, Hct 40.9 L, MCV 105.8 H, MCH 33.6 H, MCHC 31.7 L, RDW 15.2, Plt Count 238, MPV 10.7 H, Neut % (Auto) 82.0 H, Lymph % (Auto) 10.4, [place] % (Auto) 6.0, Eos % (Auto) 1.3, Baso % (Auto) 0.3, Neut # (Auto) 8.5 H, Lymph # (Auto) 1.1, [place] # (Auto) 0.6, Eos # (Auto) 0.1, Baso # (Auto) 0.0, PT 13.0 H, INR 1.22 H, APTT 28.3, Sodium 130 L, Potassium 4.9, Chloride 98, Carbon Dioxide 22, Anion Gap 14.9, BUN 58 H, Creatinine 2.00 H , Estimated Creat Clear 33, Estimated GFR 32 L, Est GFR ( Amer) 39 L, Glucose 84, Calcium 9.1, Total Bilirubin 5.1 H, AST 365 H*, ALT 158 H, Alkaline Phosphatase 670 H, Total Protein 5.7 L, Albumin 2.9 L, Globulin 2.8, Albumin/Globulin Ratio 1.0 L I & O for Last 24 hours: Intake & Output 04/20/23 04/21/23 04/22/23 04/23/23 22:59 23:59 23:59 23:59 Intake Total 880 / 880 Output Total 900 / 900 300 / 300 Balance -20 / -20 -300 / -300 Weight 182 lb 3 oz 188 lb 11.2 oz Progress Note: A&P Assessment and plan (1) ALVARO (acute kidney injury): Status: Acute (2) Metastatic disease: Status: Acute (3) Liver masses: Status: Acute (4) Pulmonary nodule: Status: Acute (5) Right sided abdominal pain: Status: Acute (6) Elevated LFTs: Status: Acute (7) Chronic kidney disease, stage 3a: Status: Chronic (8) HFrEF (heart failure with reduced ejection fraction): Status: Chronic (9) Coronary artery disease: Status: Chronic (10) Pulmonary hypertension: Problem details: Follow-up for now. 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 Patient underwent a CT abdomen pelvis which showed pulmonary and hepatic metastatic disease. Patient was admitted for further management and is scheduled to undergo biopsy tomorrow. RUQ pain Liver and lung metastic disease Elevated liver enzymes -Defer to primary service -S/p liver biopsy this am History of HFrEF Nonischemic dilated cardiomyopathy -Ejection fraction 45% -Currently holding Entresto, Aldactone, Lasix and Jardiance due to hyp otension/weakness/ALVARO. -No signs of volume overload noted -Repeat echo pending but prelim shows ef of 45 with no significant change noted. Official read is pending. -Continue metoprolol succinate 25mg daily Nonobstructive coronary artery disease -Per left heart cath 11/2022 -statin on hold due to elevated liver enzymes Acute on Chronic renal insufficiency -Creatinine 2 today improved from 2.7 04/22/2023: Patient is cv stable, cardiology will sign off. Will continue to hold diuretics/arni and jardiance due to weakness, chronic hypotension and alvaro. Please have patient follow up with [facility] in 1 week to slowly try and add back if will tolerate.
--- NOTE | 2023-04-23 14:09 | P.PN_ITS ---
Subjective *Date: 04/23/23 *Time: 14:09 Interval history: patient seen at bedside, his morning BP was around 83/52 after the biopsy procedure. Patient denied CP, SOB, he is alert and awake Exam Data for Last 24 hours Vital signs and Labs for Last 24 Hours: Temp Pulse Resp BP Pulse Ox O2 Del Method O2 Flow Rate 97.8 F 110 H 16 104/52 L 95 Room Air 4 04/23/23 13:05 04/23/23 13:05 04/23/23 13:04/23/23 13:04/23/23 13:04/23/23 13:05 04/23/23 08:40 Laboratory Results - last 24 hr 04/22/23 14:14: WBC 12.2 H, RBC 4.26 L, Hgb 14.4, Hct 44.9, MCV 105.5 H, MCH 33.8 H, MCHC 32.1, RDW 15.0, Plt Count 291, MPV 9.7, Neut % (Auto) 84.4 H, Lymph % (Auto) 9.6 L, [place] % (Auto) 3.9, Eos % (Auto) 1.7, Baso % (Auto) 0.4, Neut # (Auto) 10.3 H, Lymph # (Auto) 1.2, [place] # (Auto) 0.5, Eos # (Auto) 0.2, Baso # (Auto) 0.1, PT 12.5 04/22/23 14:14: PT 12.7 H, INR 1.17 H 04/22/23 14:14: INR 1.19 H, APTT 29.0 04/23/23 05:48: WBC 10.4, RBC 3.87 L, Hgb 13.0 L, Hct 40.9 L, MCV 105.8 H, MCH 33.6 H, MCHC 31.7 L, RDW 15.2, Plt Count 238, MPV 10.7 H, Neut % (Auto) 82.0 H, Lymph % (Auto) 10.4, [place] % (Auto) 6.0, Eos % (Auto) 1.3, Baso % (Auto) 0.3, Neut # (Auto) 8.5 H, Lymph # (Auto) 1.1, [place] # (Auto) 0.6, Eos # (Auto) 0.1, Baso # (Auto) 0.0, PT 13.0 H, INR 1.22 H, APTT 28.3, Sodium 130 L, Potassium 4.9, Chloride 98, Carbon Dioxide 22, Anion Gap 14.9, BUN 58 H, Creatinine 2.00 H , Estimated Creat Clear 33, Estimated GFR 32 L, Est GFR ( Amer) 39 L, Glucose 84, Calcium 9.1, Total Bilirubin 5.1 H, AST 365 H*, ALT 158 H, Alkaline Phosphatase 670 H, Total Protein 5.7 L, Albumin 2.9 L, Globulin 2.8, Albumin/Globulin Ratio 1.0 L I & O for Last 24 hours: Intake & Output 04/20/23 04/21/23 04/22/23 04/23/23 22:59 23:59 23:59 23:59 Intake Total 880 / 880 Output Total 900 / 900 300 / 300 Balance -20 / -20 -300 / -300 Weight 82.639 kg 85.593 kg Constitutional Constitutional: no acute distress *Routine HEENT Exam Head: Present normocephalic Eye: Present EOMI and PERRL ENT: Present mucous membranes moist *Routine Neck Exam Neck: Present supple; Absent lymphadenopathy *Routine Respiratory Exam Respiratory: Present CTA bilaterally *Routine Cardiovascular Exam Cardiovascular: Present tachycardia *Routine Abdominal Exam Abdominal: Present soft and normoactive bowel sounds; Absent tenderness *Routine Extremities Exam Extremities: Absent cyanosis, clubbing or edema *Routine Skin Exam Skin: Present warm; Absent rash *Routine Neurological Exam Neurological: Present alert and oriented X3 Assessment and Plan *Assessment and plan (1) ALVARO (acute kidney injury): Status: Acute Category: Medical Code(s): N17.9 - Acute kidney failure, unspecified (2) Metastatic disease: Status: Acute Qualifiers: Area of secondary neoplastic involvement: unspecified site Qualified Code(s): C79.9 - Secondary malignant neoplasm of unspecified site Category: Medical Code(s): C79.9 - Secondary malignant neoplasm of unspecified site (3) Liver masses: Status: Acute Category: Medical Code(s): R16.0 - Hepatomegaly, not elsewhere classified (4) Pulmonary nodule: Status: Acute Category: Medical Code(s): R91.1 - Solitary pulmonary nodule (5) Right sided abdominal pain: Status: Acute Category: Medical Code(s): R10.9 - Unspecified abdominal pain (6) Elevated LFTs: Status: Acute Category: Medical Code(s): R79.89 - Other specified abnormal findings of blood chemistry (7) Chronic kidney disease, stage 3a: Status: Chronic Category: Medical Code(s): N18.31 - Chronic kidney disease, stage 3a (8) HFrEF (heart failure with reduced ejection fraction): Status: Chronic Category: Medical Code(s): I50.20 - Unspecified systolic (congestive) heart failure (9) Coronary artery disease: Status: Chronic Qualifiers: Coronary Disease-Associated Artery/Lesion type: [place] artery [place] vs. transplanted heart: [place] heart Associated angina: without angina Qualified Code(s): I25.10 - Atherosclerotic heart disease of [place] coronary ar [place] without angina pectoris Category: Medical Code(s): I25.10 - Atherosclerotic heart disease of [place] coronary artery without angina pectoris (10) Pulmonary hypertension: Problem Comment: Follow-up for now. Status: Acute Category: Medical Code(s): I27.20 - Pulmonary hypertension, unspecified (11) Hyperlipidemia: Status: Chronic Qualifiers: Hyperlipidemia type: mixed hyperlipidemia Qualified Code(s): E78.2 - Mixed hyperlipidemia Category: Medical Code(s): E78.5 - Hyperlipidemia, unspecified (12) Cardiomyopathy: Status: Chronic Qualifiers: Cardiomyopathy type: unspecified Qualified Code(s): I42.9 - Cardiomyopathy, unspecified Category: Medical Code(s): I42.9 - Cardiomyopathy, unspecified Plan 87-year-old male with multiple cardiac comorbidities, CKD, BPH. Presented to the ER with worsening fatigue and abdominal pain. Abdominal pain Liver metastases, unknown primary Transaminitis s/p liver biopsy by IR Patient to be referred to Dr. Soto for oncology at [facility] resume anticoagulation tomorrow, monitor Hb INR ordered for the morning Pulmonary hypertension Heart failure with reduced ejection fraction - Cardiology consulted and signed off - continue to hold All BP meds except metoprolol - echo is pending, per preliminary report - no WMA,, EF 45% ALVARO on CKD -Cr is improving - continnue to monitor Constipation: Enema this morning, no bowel movement since admission. Tolerating p.o. regimen with docusate twice daily. Passing gas. Reviewed CT from admission, no overt obstruction. BPH: Continue home finasteride and tamsulosin Full code Regular diet
[2023-04-23] MEDS: TAMSULOSIN 0.4MG CAPSULE 0.400000000000000022 MG PO (21:38)
[2023-04-23] MEDS: MORPHINE 2MG/ML SYRINGE 2 MG IV (21:39)
[2023-04-23] MEDS: SENNOSIDES 8.6MG/DOCUSATE 50MG TABLET 1 TAB PO (21:39)
[2023-04-23] MEDS: FINASTERIDE 5MG TABLET 5 MG PO (21:39)
[2023-04-23] MEDS: SODIUM CHLORIDE 0.9% 10ML FLUSH SYRINGE 10 ML IV (21:40)
[2023-04-24] VITALS: BP 103/58; PULSE 96; RESP 17; TEMP 36.6; O2SAT 95
[2023-04-24 00:15] VITALS: PULSE 91
[2023-04-24 04:00] VITALS: BP 106/60; PULSE 100; RESP 16; TEMP 36.4; O2SAT 95; BMI 25.1
[2023-04-24 04:10] VITALS: PULSE 98
--- NOTE | 2023-04-24 06:35 | P.DS_ITS ---
General Admission date:: 04/19/23 Discharge date: 04/24/23 HPI HPI HPI: Mr. Carpenter is an 87-year-old male with history of CHF, CKD, BPH who presented to the ER due to worsening right upper quadrant pain and weakness over the past 3 to 4 days. Reports he was supposed to establish with Dr. Soto (oncology) today for his anemia but was too weak and fatigued and came to the ER for evaluation. On presentation he is complaining of weakness and fatigue. Tender to palpation right upper quadrant. Has had some increased shortness of breath with exertion over the past few days. Worse than his normal dyspnea which has been going on for several months. Denies any nausea, vomiting, diarrhea. No fever or chills. Workup in the ER concerning initially for elevated LFTs. Further workup including imaging of abdomen showed diffuse infiltration of his liver with multiple pulmonary nodules and lesions on his kidneys. Patient also noted to have acute on chronic kidney injury. In light of his multiple finding s, weakness, organ dysfunction, medicine was consulted for admission and further management. On evaluation, patient at bedside with him. Again complains of right upper quadrant abdominal pain. He has not had much to eat for the past 3 to 4 days. Appears more ill than the previous times I have seen him. He is on room air. Blood pressure softer than normal but MAP greater than 65. Hospital Course Hospital Course Hospital Course: 87-year-old male with multiple cardiac comorbidities, CKD, BPH. Presented to the ER with worsening fatigue and abdominal pain. In the ER, workup concerning for ALVARO, transaminitis, new finding of metastases to the liver. Discussed case with ER physician, request admission for treatment of ALVARO and further workup of metastases. Medicine agreed to admit. Still slow improvement in kidney function during admission. Tolerating p.o. intake. Had bowel movement day before discharge. Biopsy of liver lesion obtained on 04/22, tissue pathology pending. Hemodynamically stable. Meeting criteria for discharge home to continue further management as an outpatient with cardiology and oncology. Problems addressed as follows: Abdominal pain Liver metastases, unknown primary Transaminitis -Workup in the ER showed significant transaminitis with combined he patocellular/hepatobiliary pattern. Imaging of abdomen showed diffuse metastases/lesions in the liver and lower lungs. Concern for unknown primary with metastases to liver and lung. Statin was held due to transaminitis. Bilirubin above 4, AST and ALT elevated in the 300s and high 100s respectively. Alkaline phosphatase elevated in the 700s throughout admission. Liver functions remained stable. No coagulopathy. INR consistently 1.1 during admission. Interventional radiology was consulted and patient was taken for a biopsy on 04/22. He will be referred to Dr. Soto for follow-up, appointment scheduled for tomorrow. Further management pending follow-up with oncology. Tolerating p.o. intake. Still having abdominal pain. Has had a bowel movement in the past 24 hours. Continue bowel regimen at discharge. Pulmonary hypertension Heart failure with reduced ejection fraction - Cardiology consulted, assisted with care during admission. Continue to hold patient's diuretics, Jardiance, and Entresto at this time given soft blood pressure and ALVARO. Continue metoprolol 25 mg daily. Echocardiogram obtained to evaluate patient's heart failure, appears stable. Holding his statin. Plan for follow-up with cardiology in the next week. No swelling or signs of acute heart failure/overload during admission. Stable on room air throughout admission. ALVARO on CKD -Creatinine elevated at 2.8 on admission, stable between 2.0 and 2.2 for 48 hours prior to discharge. Tolerating p.o. fluids. Concern this is his new baseline. Recommend repeat labs in a week. Constipation: Multiple enemas and bowel regimen initiated during admission. Had not had a bowel movement for several days prior to admission. Has been passing gas consistently and had bowel movement day before discharge. Imaging of abdomen did not show obstruction or significant constipation. Recommend continuing bowel regimen at discharge. BPH: Continue home finasteride and tamsulosin Total time spent on discharge 32 minutes in counseling, documentation, chart review, and direct care with patient. Exam Data for Last 24 hours Vital signs and Labs for Last 24 Hours: Temp Pulse Resp BP Pulse Ox O2 Del Method O2 Flow Rate 97.5 F L 98 H 16 106/60 L 95 Room Air 4 04/24/23 04:00 04/24/23 04:10 04/24/23 04:00 04/24/23 04:00 04/24/23 04:00 04/24/23 05:00 04/23/23 08:40 Laboratory Results - last 24 hr 04/23/23 05:48: WBC 10.4, RBC 3.87 L, Hgb 13.0 L, Hct 40.9 L, MCV 105.8 H, MCH 33.6 H, MCHC 31.7 L, RDW 15.2, Plt Count 238, MPV 10.7 H, Neut % (Auto) 82.0 H, Lymph % (Auto) 10.4, [place] % (Auto) 6.0, Eos % (Auto) 1.3, Baso % (Auto) 0.3, N eut # (Auto) 8.5 H, Lymph # (Auto) 1.1, [place] # (Auto) 0.6, Eos # (Auto) 0.1, Baso # (Auto) 0.0, PT 13.0 H, INR 1.22 H, APTT 28.3, Sodium 130 L, Potassium 4.9, Chloride 98, Carbon Dioxide 22, Anion Gap 14.9, BUN 58 H, Creatinine 2.00 H , Estimated Creat Clear 33, Estimated GFR 32 L, Est GFR ( Amer) 39 L, Glucose 84, Calcium 9.1, Total Bilirubin 5.1 H, AST 365 H*, ALT 158 H, Alkaline Phosphatase 670 H, Total Protein 5.7 L, Albumin 2.9 L, Globulin 2.8, Albumin/Globulin Ratio 1.0 L I & O for Last 24 hours: Intake & Output 04/21/23 04/22/23 04/23/23 04/24/23 23:59 23:59 23:59 23:59 Intake Total 880 / 880 365 / 365 Output Total 900 / 900 600 / 700 300 / 300 Balance -20 / -20 -235 / -335 -300 / -300 Weight 82.639 kg 85.593 kg 84.2 kg Constitutional Constitutional: no acute distress, average body habitus, chronically ill appearing and cooperative *Routine HEENT Exam Head: Present normocephalic Eye: Present EOMI and PERRL ENT: Present mucous membranes moist *Routine Neck Exam Neck: Present supple; Absent lymphadenopathy *Routine Respiratory Exam Respiratory: Present CTA bilaterally; Absent rhonchi or crackles *Routine Cardiovascular Exam Cardiovascular: Present RRR *Routine Abdominal Exam Abdominal: Present soft, normoactive bowel sounds and tenderness (Diffusely, worse in right upper quadrant); Absent rebound or guarding *Routine Rectal Exam Patient deferred: visual exam *Routine Exam Patient deferred: penile exam *Routine Extremities Exam Extremities: Absent cyanosis, clubbing or edema *Routine Skin Exam Skin: Present warm; Absent rash *Routine Neurological Exam Neurological: Present alert, oriented X3 and moving all extremities; Absent altered mental status Results Data Completed and Pending Labs on day of discharge: Labs from last 24 hours 04/23/23 05:48 WBC 10.4 RBC 3.87 L Hgb 13.0 L Hct 40.9 L MCV 105.8 H MCH 33.6 H MCHC 31.7 L RDW 15.2 Plt Count 238 MPV 10.7 H Neut % (Auto) 82.0 H Lymph % (Auto) 10.4 [place] % (Auto) 6.0 Eos % (Auto) 1.3 Baso % (Auto) 0.3 Neut # (Auto) 8.5 H Lymph # (Auto) 1.1 [place] # (Auto) 0.6 Eos # (Auto) 0.1 Baso # (Auto) 0.0 PT 13.0 H INR 1.22 H APTT 28.3 Sodium 130 L Potassium 4.9 Chloride 98 Carbon Dioxide 22 Anion Gap 14.9 BUN 58 H Creatinine 2.00 H Estimated Creat Clear 33 Estimated GFR 32 L Est GFR ( Amer) 39 L Glucose 84 Calcium 9.1 Total Bilirubin 5.1 H AST 365 H* ALT 158 H Alkaline Phosphatase 670 H Total Protein 5.7 L Albumin 2.9 L Globulin 2.8 Albumin/Globulin Ratio 1.0 L DS: Diagnosis Discharge Diagnosis (1) ALVARO (acute kidney injury): Status: Acute Code(s): N17.9 - Acute kidney failure, unspecified (2) Metastatic disease: Status: Acute Code(s): C79.9 - Secondary malignant neoplasm of unspecified site Qualifiers: Area of secondary neoplastic involvement: unspecified site Qualified Code(s): C79.9 - Secondary malignant neoplasm of unspecified site (3) Liver masses: Status: Acute Code(s): R16.0 - Hepatomegaly, not elsewhere classified (4) Pulmonary nodule: Status: Acute Code(s): R91.1 - Solitary pulmonary nodule (5) Right sided abdominal pain: Status: Acute Code(s): R10.9 - Unspecified abdominal pain (6) Elevated LFTs: Status: Acute Code(s): R79.89 - Other specified abnormal findings of blood chemistry (7) Chronic kidney disease, stage 3a: Status: Chronic Code(s): N18.31 - Chronic kidney disease, stage 3a (8) HFrEF (heart failure with reduced ejection fraction): Status: Chronic Code(s): I50.20 - Unspecified systolic (congestive) heart failure (9) Coronary artery disease: Status: Chronic Code(s): I25.10 - Atherosclerotic heart disease of [place] coronary artery without angina pectoris Qualifiers: Associated angina: without angina Coronary Disease-Associated Artery/Lesion type: [place] artery [place] vs. transplanted heart: [place] heart Qualified Code(s): I25.10 - Atherosclerotic heart disease of [place] coronary artery without angina pectoris (10) Pulmonary hypertension: Status: Acute Code(s): I27.20 - Pulmonary hypertension, unspecified Problem details: Follow-up for now. (11) Hyperlipidemia: Status: Chronic Code(s): E78.5 - Hyperlipidemia, unspecified Qualifiers: Hyperlipidemia type: mixed hyperlipidemia Qualified Code(s): E78.2 - Mixed hyperlipidemia (12) Cardiomyopathy: Status: Chronic Code(s): I42.9 - Cardiomyopathy, unspecified Qualifiers: Cardiomyopathy type: unspecified Qualified Code(s): I42.9 - Cardiomyopathy, unspecified Meds Home Medications and Allergies Home Medications Medication Instructions Recorded Confirmed Type nitroglycerin 0.4 mg sublingual 0.4 mg sublingual Q5MINP PRN Chest 11/12/22 04/19/23 Rx tablet (Nitrostat) Pain 30 days #25 tabs aspirin 81 mg tablet,delayed 81 mg PO DAILY Heart Health 03/05/23 04/19/23 History release loratadine 10 mg tablet 10 mg PO DAILY Allergy Symptoms 03/05/23 04/19/23 History omeprazole 20 mg capsule,delayed 20 mg PO DAILY Acid Reflux 03/05/23 04/19/23 History release tamsulosin 0.4 mg capsule 0.4 mg PO HS prostate 03/05/23 04/19/23 History furosemide 40 mg tablet 40 mg PO DAILYP PRN Swelling 03/25/23 04/19/23 History finasteride 5 mg tablet 5 mg PO HS 30 days #30 tabs 03/26/23 04/19/23 Rx syringe with needle, safety 3 mL #100 ea 04/15/23 04/19/23 Rx 25 gauge x 1 (BD Integra Syringe) magnesium oxide 400 mg (241.3 mg 400 mg PO DAILY Supplement 04/19/23 04/19/23 History magnesium) tablet mecobalamin (vitamin B12) 10,000 1,000 mcg IM WEEKLY Supplement 04/19/23 04/19/23 History mcg solution for injection metoprolol succinate 25 mg 25 mg PO DAILY 30 days #30 tabs 04/22/23 Rx tablet,extended release 24 hr sennosides 8.6 mg-docusate sodium 1 tab PO BID PRN Constipation 30 04/22/23 Rx 50 mg tablet (Stimulant Laxative days #60 tabs Plus) New Prescriptions to Start Prescriptions: metoprolol succinate Yimi Fleming sennosides-docusate sodium [Stimulant Laxative Plus] Yimi Fleming Allergies Allergy/AdvReac Type Severity Reaction Status Date / Time Penicillins Allergy Severe stops Verified 04/19/23 14:44 breathing [id number] Reductase AdvReac Nausea Verified 04/19/23 14:44 Inhibitor Discharge Plan Disposition Patient Disposition: Home Health Service Condition: Fair Discharge Order Discharge Orders: Discharge Order (Routine); Ordered 04/24/23 Ordered By: Yimi Fleming Follow up Plan Follow up with: Sim Orourke DO [Primary Care Provider] - 05/02/23 8:30 am Bharath Soto MD [Staff Physician] - 04/25/23 9:15 am (later this week) Zana Raya MD [Staff Physician] - 04/30/23 11:15 am Prescriptions/Medication Reconciliation: New sennosides-docusate sodium [Stimulant Laxative Plus] 8.6-50 mg Tablet 1 tab PO BID PRN (Reason: Constipation) 30 Days Qty: 60 0RF Continued nitroglycerin [Nitrostat] 0.4 mg Tablet, Sublingual 0.4 mg sublingual Q5MINP PRN (Reason: Chest Pain) 30 Days Qty: 25 0RF aspirin 81 mg tablet,delayed release (DR/EC) 81 mg PO DAILY tamsulosin 0.4 mg capsule 0.4 mg PO HS omeprazole 20 mg capsule,delayed release(DR/EC) 20 mg PO DAILY loratadine 10 mg tablet 10 mg PO DAILY furosemide 40 mg tablet 40 mg PO DAILYP PRN (Reason: Swelling) Patient Comments: TAKE 1 TABLET BY MOUTH ONCE DAILY -TAKE IF HAVE A WEIGHT GAIN OF 2LBS IN 24 HOURS finasteride 5 mg Tablet 5 mg PO HS 30 Days Qty: 30 0RF magnesium oxide 400 mg (241.3 mg magnesium) tablet 400 mg PO DAILY mecobalamin (vitamin B12) 10,000 mcg [place] 1,000 mcg IM WEEKLY Changed metoprolol succinate 25 mg tablet extended release 24 hr 25 mg PO DAILY 30 Days Qty: 30 0RF Discontinued Jardiance 10 mg tablet 10 mg PO DAILY 90 Days Qty: 90 1RF spironolactone 25 mg tablet 25 mg PO DAILY Patient Comments: TAKE 1 TABLET BY MOUTH ONCE DAILY No Action (DME) BD Integra Syringe 3 mL 25 gauge x 1 syringe See Rx Instructions .Route Qty: 100 0RF Rx Instructions: As directed once a month Problem Reconciliation Problems Reviewed?: Yes Patient Discharge Instructions ACTIVITY: Continue current activity DIET: continue same diet Patient Instructions: DI for Heart Failure, DI for Acute Kidney Injury Providers Primary Care Provider: Sim Orourke Admit Provider: Yimi Fleming Attending Provider: Yimi Fleming
[2023-04-24 06:42] LABS: Basophils % 0.3 % (0.1-2.0); Eosinophils # 0.1 K/mm3 (0.0-0.4); Eosinophils % 1.3 % (0.1-12.0); Hematocrit 42.2 % (42.0-52.0); Hemoglobin 13.2 g/dL (14.1-18.0); Lymphocytes % 9.8 % (10-50); Mean Corpuscular HGB Conc 31.3 g/dL (31.8-35.4); Mean Corpuscular Hemoglobin 33.9 pg (27.0-31.2); Mean Corpuscular Volume 108.1 fl (80-94); Mean Platelet Volume 9.6 fl (7.4-10.4); Monocytes # 0.5 K/mm3 (0.1-1.0); Monocytes % 4.6 % (1.7-9.3); Neutrophils # 8.5 K/mm3 (1.8-7.8); Platelet Count 225 K/mm3 (142-424); Red Cell Distribution Width 15.4 % (11.5-17.5); White Blood Count 10.1 K/mm3 (4.8-10.8)
[2023-04-24 07:20] LABS: Blood Urea Nitrogen 62 mg/dl (9-20); Calcium 9.1 mg/dl (8.4-10.2); Carbon Dioxide 25 mmol/L (22.0-30.0); Chloride 99 mmol/L (98-107); Creatinine Clearance Estimated 29 mL/min (50-200); Estimated Glomerular Filt Rate 29 ml/min (>60); GFR (African American) 35 ML/MIN (>60); Glucose 82 mg/dl (74-100); Sodium 132 mmol/L (136-145)
[2023-04-24 08:00] VITALS: PULSE 110
[2023-04-24] MEDS: PANTOPRAZOLE 40MG TABLET 40 MG PO (08:17)
[2023-04-24] MEDS: METOPROLOL SUCCINATE XL 25MG TABLET 25 MG PO (08:17)
--- NOTE | 2023-04-25 16:21 | CARE MANAGER ---
Contacted and spoke with her related to 's discharge. She states that Hospice is there seeing patient right now. She has tried to call Dr. Orourke's office as the patient is in need of pain medication. Told her they likely would not prescribe over the phone without seeing the patient but would definitely get in contact with them. denied any other questions or concerns. Spoke with Kacey at [facility]. She took 's phone number and stated they would reach out to her. FRANK Romero
== END 2023-04-24 08:36 | disposition home health service (06) | DRG 436 ==
LOC: ER 13:58 → 2ND 14:03
PROVIDERS: Internal Medicine; Admitting Provider Internal Medicine Adolescent Medicine; Emergency Provider Student in an Organized Health Care Education/Training Program; PCP Internal Medicine; Visit Provider Internal Medicine Adolescent Medicine
DX: C78.7 Secondary malignant neoplasm of liver and intrahepatic bile duct (principal); I42.9 Cardiomyopathy, unspecified; N17.9 Acute kidney failure, unspecified; I50.20 Unspecified systolic (congestive) heart failure; C80.1 Malignant (primary) neoplasm, unspecified; R16.0 Hepatomegaly, not elsewhere classified; R91.1 Solitary pulmonary nodule; N18.31 Chronic kidney disease, stage 3a; I25.10 Atherosclerotic heart disease of native coronary artery without angina pectoris; I27.20 Pulmonary hypertension, unspecified; E78.2 Mixed hyperlipidemia; N40.0 Benign prostatic hyperplasia without lower urinary tract symptoms
CPT/HCPCS: 47000; 36415; 71045; 74176; 77012; 80048; 80053; 83690; 83735; 83880; 84484; 85007; 85025; 85378; 85610; 85730; 88307; 88341; 88342; 93005; 93306; 97163; 97166; 99285; J2405